=== PATIENT | female | born 1960 | race African-American/Black ===

== ENCOUNTER 2016-11-29 11:13 | Inpatient (IN) | payer OTHER ==
[2016-11-29] MEDS ORDERED: Hydrocortisone 10 mg Tablet PO SCH (14:00)
[2016-11-29] MEDS ORDERED: Hydrocortisone Sod Succ/PF 100 mg/2 ml Vial ONE (14:01)
--- NOTE | 2016-11-29 14:29 | HP ---
PRIMARY CARE PHYSICIAN: Reid Yao M.D. REASON FOR ADMISSION: Transfer from [facility] for sepsis, hypotension, and urinary trac t infection. HISTORY OF PRESENT ILLNESS: A 56-year-old -[place] female with a history of hypertension, u nknown type of congestive heart failure and mental retardation who went to [facility] thi s morning. [facility] and patient was hypotensive and febrile. The patient had chest x-ray recently which was normal. Her maximum temperature at [facility] was 102. When s he went to [facility], her blood pressure was 72/45 and temperature was 100.7. Policewoman s started IV fluid. The patient was completely altered when she reached [facility] and s he was not able to provide any detailed history. At [facility], the patient was given Ativan 0.5 mg, cefepime 2 g, ibuprofen 600 mg, IV fl uid 4 bags, and vancomycin, and subsequently she was transferred to our emergency room. In our emergency room, her blood pressure has responded and her blood pressure was running between 9 0-110. Patient was arousable, but she was not able to provide any history, so history was not obtai amada from her and very limited. The patient lives at [facility] and patient has FULL CODE over there. We are going to ke ep this patient in the hospital on telemetry floor for close monitoring and sepsis treatment. REVIEW OF SYSTEMS: All review of system reviewed with the patient, but unable to review because of her encephalopathy and underlying mental retardation. PAST MEDICAL HISTORY: Hypokalemia, history of nonspecific pericarditis, history of hypoglycemia, hi story of DVT, history of unknown type of CHF, gastroesophageal reflux disease, peptic ulcer disease, iron deficiency anemia, dyslipidemia, and history of hypertension. PAST SURGICAL HISTORY: Reviewed and negative as per H\T\P from [facility]. PAST PSYCHIATRIC HISTORY: Anxiety, depression, and mental retardation. SOCIAL HISTORY: Patient lives at [facility]. No history of tobacco, alcohol or illicit drug abuse. FAMILY HISTORY: The patient is not able to provide any family history and no family member present at bedside. EMERGENCY ROOM COURSE: Patient has received 4 liters of fluid at [facility], Ativan 0.5 mg, cefepime 2 g, vancomycin 1 g, and ibuprofen 600 mg and patient is receiving hydrocortisone in [facility] emergency room. CURRENT HOME MEDICATIONS: As per [facility] record, patient is on following medications there; as pirin 325 mg p.o. daily, lisinopril 2.5 mg p.o. daily, potassium chloride 20 mEq p.o. daily, simethi cone 80 mg daily, Aldactone 12.5 mg p.o. daily, calcium with vitamin D one tablet twice daily, Coreg 3.125 mg twice daily, ferrous sulfate 25 mg daily, Lasix 80 mg daily, Zantac 150 mg twice daily, Li pitor 20 mg p.o. at bedtime, Remeron 30 mg p.o. at bedtime. ALLERGIES: No known drug allergy. PHYSICAL EXAMINATION: VITAL SIGNS: Currently in our emergency room, most recent vital signs, blood pressure 103/64, pulse 77, respiratory rate 19, temperature 97.7, saturation 99% on room air, weight 68 kilograms. GENERAL: The patient is mentally retarded, encephalopathic, able to arousable, but does not follow good commands and does not remain in alert state. HEAD: Normocephalic, atraumatic. EYES: Pupils round, reactive to light. Extraocular muscles intact. ENT: Oropharynx within normal limits. Moist mucous membranes. No oral lesions. No pharyngeal lani thema, no exudate. NECK: Supple. Range of motion is normal. No meningeal signs of irritation. LUNGS: Clear to auscultation without any rhonchi or rales. CARDIAC: S1 and S2 regular. No murmur, no gallop, no rub. ABDOMEN: Soft, bowel sounds present, nontender, and nondistended. No organomegaly, no mass, no sup rapubic tenderness. BACK: Examination unremarkable, no CVA tenderness. EXTREMITIES: Upper extremity passive movements of all joints are normal. Lower extremity, no edema . Good peripheral pulsation. NEUROLOGIC: Unable to assess at this point, but she is moving all 4 limbs. No focal neurological d eficit noted. PSYCHIATRIC: Flat affect. HEMATOLOGICAL SYSTEM: No lymphadenopathy. SIGNIFICANT LABORATORY DATA AND IMAGIN. CBC: WBC 10.7, hemoglobin 9.3, MCV 72.3, platelets 197, and bandemia. INR 2.1. BMP: Sodium 1 40, potassium 3.6, chloride 106, carbon dioxide 20, BUN 38, creatinine 1.63, glucose 147, calcium 8. 6, lactic acid 0.9. 2. LFT: AST 33, ALT 22, alkaline phosphatase 111, albumin 3.4. Urinalysis suggestive of urinary t ract infection. 3. Influenza A and B negative. 3. Chest x-ray showing cardiomegaly, no pneumonia. ASSESSMENT AND PLAN/IMPRESSION: 1. Sepsis. This patient has high-grade fever at [facility] and in the emergency room, she has hy potension, so this patient is meeting sepsis criteria. Her source of infection is most likely urina ry tract. Her chest x-ray is normal. At this point, patient has received appropriate antibiotic th erapy with cefepime and vancomycin, which we will continue. In addition to that, I will add levoflo xacin and will follow up on urine and blood culture result. 2. Hypotension. This patient should have chronically low hypertension. She does have congestive h eart failure history. She already received 4 liters of fluid. She is mentating okay. She is makin g urine. We will check random cortisol and we will give her Solu-Cortef 100 mg in the emergency edilma m and then 50 mg q.8 hourly. We will continue baseline fluid at 125 mL per hour. Given her history of congestive heart failure, we will closely monitor on telemetry floor and we will watch for any s igns of volume overload. 3. Urinary tract infection. This patient's urinalysis is suggestive of urinary tract infection octavio t is contributing to her sepsis with hypotension. The patient will be given cefepime, Levaquin, and vancomycin and will follow up on culture result. 4. Microcytic anemia. The patient will have iron supplementation, which she is taking at [facility]. We will continue in liquid formulation. 5. Acute/chronic kidney failure. This patient currently, creatinine is 1.62. The patient has rece ived IV fluid and we will repeat basic metabolic panel tomorrow. 6. History of congestive heart failure, type of ejection fraction is not known. Patient has cardio megaly. I will obtain echocardiography to assess ejection fraction and other structural abnormality . Based on her medication, I am suspecting that the patient might have underlying systolic heart fa ilure. At this point, given patient's low blood pressure, we will hold on all antihypertensive medi cation for now. 7. Dyslipidemia. We will continue Lipitor 20 mg p.o. at bedtime. 8. Gastroesophageal reflux disease. We will continue Pepcid 20 mg IV b.i.d. 9. Deep venous thrombosis prophylaxis, Lovenox 40 mg subcutaneously daily. 10. Gastrointestinal prophylaxis, Pepcid 20 mg IV b.i.d. 11. Code status: The patient has FULL CODE status at [facility]. Disposition plan based on clinical course. We are expecting patient's stay in hospital more than 2 midnights. Plan of care discussed with the patient and nurses in detail.
[2016-11-29] MEDS: Sodium Chloride 0.9% 1,000 ML IV SCH ×2 (14:55→19:53)
[2016-11-29] MEDS ORDERED: Sodium Chloride 0.9% 1,000 ML IV SCH (14:59)
[2016-11-29] MEDS ORDERED: Ondansetron HCl/PF 4 MG/2 ML Vial IVP PRN ×2 (14:59→15:10)
[2016-11-29] MEDS ORDERED: Acetaminophen 325 MG TAB PO PRN ×2 (14:59→15:10)
[2016-11-29] MEDS ORDERED: Ondansetron ODT 4 MG TAB SL PRN (14:59)
[2016-11-29] MEDS ORDERED: Mag-Al 1200 mg/1200 mg/30 ML UDCUP PO PRN (15:10)
[2016-11-29] MEDS ORDERED: Sodium Chloride 0.65% Nasal 44 ML BOT EA NARE PRN (15:10)
[2016-11-29] MEDS ORDERED: VANCOMYCIN IVPB PRN (15:10)
[2016-11-29] MEDS ORDERED: Milk Of Magnesia 30 ML UDCUP PO PRN (15:10)
[2016-11-29] MEDS ORDERED: Eucerin (Mineral Oil/Petrolatum,White) 30 gm Jar TOP PRN (15:10)
[2016-11-29] MEDS ORDERED: Diabetic Tussin 200 MG/10 ML UDCUP PO PRN (15:10)
[2016-11-29] MEDS ORDERED: Chloraseptic Spray 180 ml Bottle PO PRN (15:10)
[2016-11-29] MEDS ORDERED: Ondansetron ODT 4 MG TAB PO PRN (15:10)
[2016-11-29] MEDS ORDERED: Senokot 8.6 MG TAB PO PRN (15:10)
[2016-11-29] MEDS ORDERED: Artificial Tears 18 DROP/0.9 ML EA EYE PRN (15:10)
[2016-11-29] MEDS ORDERED: Loperamide HCl 2 MG CAP PO PRN (15:10)
[2016-11-29] MEDS: Cefepime 2 GM in Sodium Chloride 0.9% 100 ML IVPB SCH (19:53)
[2016-11-29] MEDS: Famotidine/PF 20 mg/2ml Vial SLOW IVP SCH (21:45)
[2016-11-29] MEDS: Vancomycin HCl 750 MG in Sodium Chloride 0.9% 250 ML 250 ML IVPB SCH (21:45)
[2016-11-29] MEDS: Hydrocortisone Sod Succ/PF 100 mg/2 ml Vial IVP SCH (21:45)
[2016-11-30] MEDS: Hydrocortisone Sod Succ/PF 100 mg/2 ml Vial IVP SCH (05:48)
[2016-11-30] MEDS: Sodium Chloride 0.9% 1,000 ML IV SCH ×3 (05:49→15:21)
[2016-11-30 06:38] LABS: ALT (SGPT) 16 U/L (8-55); AST (SGOT) 22 U/L (5-34); Alkaline Phosphatase 95 U/L (40-150); Anion Gap 15 mmol/L (10-20); BUN (Urea Nitrogen) 44 mg/dL (9.8-20.1); Calc. Creatinine Clearance 38 mL/min (70-130); Calcium 8.3 mg/dL (7.8-10.44); Carbon Dioxide 18 mmol/L (22-29); Chloride 111 mmol/L (98-107); Estimated GFR-MDRD 39; Globulin 3.8 g/dL (2.4-3.5); Protein, Total 7.1 g/dL (6.0-8.3)
[2016-11-30] MEDS: Cefepime 2 GM in Sodium Chloride 0.9% 100 ML IVPB SCH ×2 (10:18→21:02)
[2016-11-30] MEDS: Enoxaparin Sodium 40 MG/0.4 ML SYRINGE SC SCH (10:19)
[2016-11-30] MEDS: Calcium Carbonate + Vit D 1 TAB PO SCH ×2 (10:20→21:03)
[2016-11-30] MEDS: Saccharomyces boulardii 250 MG CAP PO SCH (10:20)
--- NOTE | 2016-11-30 13:15 | PDOC.PN ---
- Subjective Encounter Start Date: 11/30/16 Encounter Start Time: 07:15 -: old records requested/rev pt is more alert but still baseline confused, now BP is more better, no fever - Objective Resuscitation Status: Resuscitation Status FULL:Full Resuscitation MAR Reviewed: Yes Vital Signs & Weight: Vital Signs (12 hours) Temp Pulse Resp BP Pulse Ox 11/30/16 04:00 97.9 F 88 18 110/68 99 Weight Weight 138 lb 9 oz I&O: 11/29/16 11/30/16 12/01/16 06:59 06:59 06:59 Intake Total 1654 Output Total 300 Balance 1354 Result Diagrams: 11/30/16 05:36 EKG Reviewed by me: Yes (nsr) Phys Exam - Physical Examination Constitutional: NAD HEENT: PERRLA, moist MMs, sclera anicteric Neck: no JVD, supple Respiratory: no wheezing, no rales, no rhonchi Cardiovascular: RRR, no significant murmur, no rub Gastrointestinal: soft, non-tender, no distention, positive bowel sounds Musculoskeletal: no edema, pulses present Neurological: moves all 4 limbs Lymphatic: no nodes Psychiatric: normal affect Skin: no rash, normal turgor Dx/Plan (1) Acute kidney failure Status: Acute (2) Hypotension Status: Acute (3) Metabolic acidosis Code(s): E87.2 - ACIDOSIS Status: Acute (4) Microcytic anemia Code(s): D50.9 - IRON DEFICIENCY ANEMIA, UNSPECIFIED Status: Acute (5) Sepsis with acute organ dysfunction Code(s): A41.9 - SEPSIS, UNSPECIFIED ORGANISM; R65.20 - SEVERE SEPSIS WITHOUT SEPTIC SHOCK Status: Acute (6) UTI (urinary tract infection) Status: Acute (7) CHF (congestive heart failure) Code(s): I50.9 - HEART FAILURE, UNSPECIFIED Status: Chronic - Plan cont current plan of care, continue antibiotics * continue empiric cefepime, levaquin and vancomycin based on renal dose * medication reviewed as below * symptomatic treatment. * will reduce IVF today * echo pending * follow culture * will repeat labs tomorrow. Review of Systems - Review of Systems Other: not reliable due to mental retardation and confusional state - Medications/Allergies Allergies/Adverse Reactions: Allergies Allergy/AdvReac Type Severity Reaction Status Date / Time No Known Allergies Allergy Unverified 11/29/16 13:49 Medications: Current Medications Acetaminophen (Tylenol) 650 mg PO Q4H PRN PRN Reason: Headache/Fever or Pain Al Hydroxide/Mg Hydroxide (Maalox) 30 ml PO Q6H PRN PRN Reason: Heartburn or Indigestion Artificial Tears (Tears Naturale) 0 drop EA EYE PRN PRN PRN Reason: Dry Eyes Calcium/Vitamin D (Caltrate 600 + Vit D) 1 tab PO BID [facility] Last Admin: 11/30/16 10:20 Dose: 1 tab Enoxaparin Sodium (Lovenox) 40 mg SC 0900 [facility] Last Admin: 11/30/16 10:19 Dose: 40 mg Famotidine (Pepcid) 20 mg SLOW IVP Q24HR [facility] Last Admin: 11/29/16 21:45 Dose: 20 mg Ferrous Sulfate (Ferrous Sulfulte) 300 mg PO BID [facility] Last Admin: 11/30/16 10:29 Dose: 300 mg Guaifenesin (Robitussin Sf) 200 mg PO Q4H PRN PRN Reason: Cough Cefepime HCl 2 gm/ Sodium (Chloride) 100 mls @ 200 mls/hr IVPB 0800,2000 [facility] Last Admin: 11/30/16 10:18 Dose: 100 mls Vancomycin HCl 750 mg/ Sodium (Chloride) 250 mls @ 250 mls/hr IVPB 2100 [facility] Last Admin: 11/29/16 21:45 Dose: 250 mls Sodium Chloride (Normal Saline 0.9%) 1,000 mls @ 75 mls/hr IV .[id number] [facility] Last Admin: 11/30/16 10:27 Dose: 1,000 mls Levofloxacin 500 mg/ Device 100 mls @ 100 mls/hr IVPB Q2D@1700 [facility] Loperamide HCl (Imodium) 2 mg PO PRN PRN PRN Reason: Diarrhea/Loose Stools Magnesium Hydroxide (Milk Of Magnesium) 30 ml PO DAILYPRN PRN PRN Reason: Constipation Mineral Oil/White Petrolatum (Eucerin Cream) 0 gm TOP BIDPRN PRN PRN Reason: Dry Skin Miscellaneous Medication (Pharmacy To Dose) 1 each IVPB PRN PRN PRN Reason: Pharmacy to dose Ondansetron HCl (Zofran Odt) 4 mg PO Q6H PRN PRN Reason: Nausea/Vomiting Ondansetron HCl (Zofran) 4 mg IVP Q6H PRN PRN Reason: Nausea/Vomiting Phenol (Chloraseptic [place] 180 Ml Bot) 0 ml PO PRN PRN PRN Reason: Sore Throat Saccharomyces Boulardii (Florastor) 250 mg PO DAILY [facility] Last Admin: 11/30/16 10:20 Dose: 250 mg Senna (Senokot) 2 tab PO HSPRN PRN PRN Reason: Constipation Sodium Chloride ([place] Nasal [place] 0.65%) 0 ml EA NARE QIDPRN PRN PRN Reason: Nasal Congestion
[2016-11-30] MEDS: Famotidine/PF 20 mg/2ml Vial SLOW IVP SCH (21:09)
[2016-11-30] MEDS: Vancomycin HCl 750 MG in Sodium Chloride 0.9% 250 ML 250 ML IVPB SCH (21:11)
[2016-12-01 06:44] LABS: Prothrombin Time 18.1 SEC (12.0-14.7)
[2016-12-01 07:01] LABS: Anion Gap 15 mmol/L (10-20); BUN (Urea Nitrogen) 45 mg/dL (9.8-20.1); Band 6 % (5-11); Burr Cells MODERATE= 6-15 cells (100X) (0-1/hpf); Calc. Creatinine Clearance 43 mL/min (70-130); Calcium 8.2 mg/dL (7.8-10.44); Carbon Dioxide 16 mmol/L (22-29); Chloride 111 mmol/L (98-107); Estimated GFR-MDRD 42; Hematocrit 34.5 % (36.0-47.0); Hypochromia SLIGHT = 6-15 cells (100X) (0-5/hpf); Mean Platelet Volume 9.8 fL (7.4-10.4); Neutrophil 83 % (42-75); Red Blood Cell (RBC) Count 4.45 mill/uL (4.20-5.40); White Blood Cell (WBC) Count 12.5 thou/uL (4.8-10.8)
[2016-12-01] MEDS: Calcium Carbonate + Vit D 1 TAB PO SCH ×2 (11:07→20:39)
[2016-12-01] MEDS: Enoxaparin Sodium 40 MG/0.4 ML SYRINGE SC SCH (11:07)
[2016-12-01] MEDS: Cefepime 2 GM in Sodium Chloride 0.9% 100 ML IVPB SCH ×2 (11:07→20:39)
--- NOTE | 2016-12-01 11:58 | PDOC.PN ---
- Subjective Encounter Start Date: 12/01/16 Encounter Start Time: 11:56 Ms. Swift is more alert today as per staff. she is able to answer a few simple questions. - Objective Resuscitation Status: Resuscitation Status FULL:Full Resuscitation MAR Reviewed: Yes Vital Signs & Weight: Vital Signs (12 hours) Temp Pulse Resp BP Pulse Ox 12/01/16 04:00 100.2 F H 100 20 122/73 97 Weight Weight 146 lb I&O: 11/30/16 12/01/16 12/02/16 06:59 06:59 06:59 Intake Total 1654 2143 Output Total 300 450 Balance 1354 1693 Result Diagrams: 12/01/16 06:21 12/01/16 06:21 Phys Exam - Physical Examination HEENT: PERRLA Respiratory: no wheezing, no rales, no rhonchi, clear to auscultation bilateral Cardiovascular: RRR, no significant murmur, no rub Gastrointestinal: soft, non-tender, positive bowel sounds Musculoskeletal: no edema Dx/Plan (1) Systolic heart failure Code(s): I50.20 - UNSPECIFIED SYSTOLIC (CONGESTIVE) HEART FAILURE Status: Acute (2) Acute kidney failure Status: Acute (3) Microcytic anemia Code(s): D50.9 - IRON DEFICIENCY ANEMIA, UNSPECIFIED Status: Acute (4) Sepsis with acute organ dysfunction Code(s): A41.9 - SEPSIS, UNSPECIFIED ORGANISM; R65.20 - SEVERE SEPSIS WITHOUT SEPTIC SHOCK Status: Acute (5) UTI (urinary tract infection) Status: Acute - Plan * UTI with sepsis and acute renal failure- Continue Levaquin, Cefepime, and Vancomycin * Urine cultures were note done from the ER, ? from the [facility]- will check , but likely will be low yield, now that antibiotics have been started * Microcytic Anemia- will check stool for occult blood, she may need Outpatient Colonoscopy * Systolic heart failure- not sure if this is a chronic problem. She came in with a diagnosis of CHF- will try to contact family to confirm * If She continues to improve, can stop Vancomycin in the AM, consider de- escalating other antibiotics as well * HTN- blood pressure is stable
[2016-12-01 12:10] LABS: Iron 12 ug/dL (50-170)
[2016-12-01] MEDS: Sodium Chloride 0.9% 1,000 ML IV SCH ×2 (17:11→20:40)
[2016-12-01] MEDS: Saccharomyces boulardii 250 MG CAP PO SCH (17:12)
[2016-12-01 20:26] LABS: Vancomycin, Trough 17.5 ug/mL
[2016-12-01] MEDS: Famotidine/PF 20 mg/2ml Vial SLOW IVP SCH (20:39)
[2016-12-01] MEDS: Vancomycin HCl 750 MG in Sodium Chloride 0.9% 250 ML 250 ML IVPB SCH (20:40)
[2016-12-02] MEDS: Cefepime 2 GM in Sodium Chloride 0.9% 100 ML IVPB SCH (10:04)
[2016-12-02] MEDS: Calcium Carbonate + Vit D 1 TAB PO SCH ×2 (10:05→20:08)
[2016-12-02] MEDS: Enoxaparin Sodium 40 MG/0.4 ML SYRINGE SC SCH (10:05)
[2016-12-02] MEDS: Saccharomyces boulardii 250 MG CAP PO SCH (10:05)
--- NOTE | 2016-12-02 10:31 | PDOC.PN ---
- Subjective Encounter Start Date: 12/02/16 Encounter Start Time: 10:28 Ms. Swift is complaining of abdominal pain, she says " my stomach hurts". She is unable to give me much additional information due to the MR. - Objective Resuscitation Status: Resuscitation Status FULL:Full Resuscitation MAR Reviewed: Yes Vital Signs & Weight: Vital Signs (12 hours) Temp Pulse Resp BP Pulse Ox 12/02/16 04:00 97.6 F 104 H 18 115/65 98 Weight Weight 147 lb 4.8 oz I&O: 12/01/16 12/02/16 12/03/16 06:59 06:59 06:59 Intake Total 2143 3230 Output Total 450 950 Balance 1693 2280 Result Diagrams: 12/01/16 06:21 12/01/16 06:21 Phys Exam - Physical Examination HEENT: PERRROCIO Respiratory: no wheezing, no rales, no rhonchi, clear to auscultation bilateral Cardiovascular: RRR, no significant murmur + distended, tympanic to percussion, BS are present, difuse tenderness no rebound or guarding Dx/Plan (1) Systolic heart failure Code(s): I50.20 - UNSPECIFIED SYSTOLIC (CONGESTIVE) HEART FAILURE Status: Acute (2) Acute kidney failure Status: Acute (3) Microcytic anemia Code(s): D50.9 - IRON DEFICIENCY ANEMIA, UNSPECIFIED Status: Acute (4) Sepsis with acute organ dysfunction Code(s): A41.9 - SEPSIS, UNSPECIFIED ORGANISM; R65.20 - SEVERE SEPSIS WITHOUT SEPTIC SHOCK Status: Acute (5) UTI (urinary tract infection) Status: Acute - Plan * Abdominal Pain- ? etiology- ? obstipation- will check a KUB ( unsure if she is able to stand)- she may require CT- abdomen * UTI- Urine culture results from 11/29 are now available and are growing E. Coli , as well as blood cultures. This E. Coli is resistent to quinolones- will therefore change her antibiotic to Rocephin. Stop Vancomycin, and Cefepime * Anemia- suspect chronic disease- stool guaic was negative, will check a ferritin level * Systolic heart failure- likely chronic- this is compensated. Will restart Coreg, and Aldactone, once the GI issue is resolved
--- NOTE | 2016-12-02 11:40 | RAD ---
KUB: Comparison: None. History: Abdominal pain. FINDINGS: Single view of the abdomen shows a nonspecific, nonobstructed bowel gas pattern. Air and stool seen in the rectum. No suspicious calcifications are present. IMPRESSION: Unremarkable exam. POS: [facility]
[2016-12-02] MEDS: cefTRIAXone\\ROCEPHIN 1 GM in Sodium Chloride 0.9% 100 ML IVPB SCH (13:06)
[2016-12-02] MEDS: Sodium Chloride 0.9% 1,000 ML IV SCH (13:06)
[2016-12-02] MEDS ORDERED: Bisacodyl 10 MG SUPP PR SCH (16:30)
[2016-12-02] MEDS: Famotidine 20 MG TAB PO SCH (20:08)
[2016-12-03] MEDS: Sodium Chloride 0.9% 1,000 ML IV SCH (01:20)
[2016-12-03 06:20] LABS: Band 1 % (5-11); Burr Cells SLIGHT = 2-5 cells (100X) (0-1/hpf); Elliptocytes SLIGHT = 2-5 cells (100X) (0-1/hpf); Hematocrit 30.3 % (36.0-47.0); Mean Platelet Volume 10.1 fL (7.4-10.4); Neutrophil 86 % (42-75); Nucleated RBC 1 % (0); Red Blood Cell (RBC) Count 3.83 mill/uL (4.20-5.40); Target Cells SLIGHT = 2-5 cells (100X) (0-1/hpf); White Blood Cell (WBC) Count 10.1 thou/uL (4.8-10.8)
[2016-12-03] MEDS: Saccharomyces boulardii 250 MG CAP PO SCH (08:44)
[2016-12-03] MEDS: Famotidine 20 MG TAB PO SCH (08:44)
[2016-12-03] MEDS: Calcium Carbonate + Vit D 1 TAB PO SCH (08:44)
[2016-12-03] MEDS: Enoxaparin Sodium 40 MG/0.4 ML SYRINGE SC SCH ×2 (08:45→10:26)
[2016-12-03] MEDS: cefTRIAXone\\ROCEPHIN 1 GM in Sodium Chloride 0.9% 100 ML IVPB SCH (10:32)
--- NOTE | 2016-12-03 11:10 | PDOC.PN ---
- Subjective Encounter Start Date: 12/03/16 Encounter Start Time: 11:08 Ms. Swift says she wants to go home. She says the pain in her abdomen is a little better. Her nurse says she had a large bowel movement last night. - Objective Resuscitation Status: Resuscitation Status FULL:Full Resuscitation MAR Reviewed: Yes Vital Signs & Weight: Vital Signs (12 hours) Temp Pulse Resp BP Pulse Ox 12/03/16 08:43 98.2 F 96 18 124/77 98 12/03/16 04:00 98.4 F 92 20 118/66 98 Weight Weight 147 lb 4.8 oz I&O: 12/02/16 12/03/16 12/04/16 06:59 06:59 06:59 Intake Total 3230 1803 Output Total 950 885 Balance 2280 918 Result Diagrams: 12/03/16 05:11 12/01/16 06:21 Phys Exam - Physical Examination HEENT: PERRLA Respiratory: no wheezing, no rales, no rhonchi, clear to auscultation bilateral Cardiovascular: RRR, no significant murmur, no rub Gastrointestinal: soft + mild distention, less tender Musculoskeletal: edema present 1+ pedal edema Dx/Plan (1) Systolic heart failure Code(s): I50.20 - UNSPECIFIED SYSTOLIC (CONGESTIVE) HEART FAILURE Status: Acute (2) Acute kidney failure Status: Acute (3) Microcytic anemia Code(s): D50.9 - IRON DEFICIENCY ANEMIA, UNSPECIFIED Status: Acute (4) Sepsis with acute organ dysfunction Code(s): A41.9 - SEPSIS, UNSPECIFIED ORGANISM; R65.20 - SEVERE SEPSIS WITHOUT SEPTIC SHOCK Status: Acute (5) UTI (urinary tract infection) Status: Acute - Plan * UTI due to E Coli with sepsis- she is now afebrile, and her vital signs are stable * Will discharge back to the [facility] today * Will recommend Outpatient Colonoscopy to evaluate anemia and change in bowel habits..
[2016-12-03 15:39] VITALS: BP 132/84; TEMP 98.5
--- NOTE | 2016-12-03 19:59 | DIS ---
DATE OF ADMISSION: 11/29/2016 DATE OF DISCHARGE: 12/02/2016 PRIMARY CARE PHYSICIAN: Reid Yao M.D. DISCHARGE DISPOSITION: Back to her [facility]. DISCHARGE DIAGNOSES: 1. Urinary tract infection due to Escherichia coli with Escherichia coli sepsis. 2. Chronic systolic heart failure with an ejection fraction of 25% to 30%. 3. History of pericarditis. 4. History of deep vein thrombosis. 5. Iron deficiency anemia. 6. Hypertension. 7. Mental retardation. DISCHARGE MEDICATIONS: Include Omnicef 600 mg p.o. daily for 10 days, also Florastor 250 mg daily f or 30 days was added. She is to continue spironolactone 12.5 mg daily, Zantac 150 mg twice a day, M iraLax 17 grams daily, Lasix 80 mg twice daily, iron sulfate 220 mg twice daily, carvedilol 3.125 mg twice a day, calcium carbonate 1 tablet twice daily, Lipitor 20 mg at bedtime and Tylenol #3 as nee ded. PROCEDURES DONE DURING THE ADMISSION: The patient had an echocardiogram, which demonstrated an ejec tion fraction, which was estimated at 25% to 30%. There were some E to A reversal suggestive of jf stolic dysfunction. There was some severe tricuspid regurgitation as well as moderate mitral regurg itation. HOSPITAL COURSE: Ms. Swift is a pleasant 56-year-old female that was [facility] from the [facility] due to high fever with a temperature of 102 and she was also hypotensive with systolic blood pressu res in the 70s. She was sent initially to the emergency room in [place] where she had blood and urin e cultures done and then was sent to our facility. She was initially placed on broad-spectrum IV an tibiotics. Her urine and blood cultures grew E. coli, which was sensitive to cephalosporins, but re sistant to quinolones. She had been on cefepime since admission. This was then transitioned to Jay ephin and she had a good clinical response. She was also found to have iron deficiency anemia, whic h she came in with a diagnosis of iron deficiency anemia; however, her iron level is still low at 12 and her ferritin was low at 85, iron binding capacity was 313. Her stool guaiac was negative for o ccult blood; however, she did have some constipation during her hospital stay and unfortunately, due to her mental retardation, it is unclear whether or not she has ever had a screening colonoscopy be fore. Also, we were not able to locate any family to do any type of consenting, therefore she will be transferred back to her [facility]. She is clinically stable and an outpatient GI referral for colonoscopy can be arranged.
== END 2016-12-03 15:07 | DRG 872 ==
LOC: ERS 11:13 → 2NO 12:46
PROVIDERS: ADMIT Internal Medicine; ATTEND Internal Medicine
DX: A41.51 Sepsis due to Escherichia coli [E. coli] (principal); N17.9 Acute kidney failure, unspecified; E87.2 Acidosis; I13.0 Hypertensive heart and chronic kidney disease with heart failure and stage 1 through stage 4 chronic kidney disease, or unspecified chronic kidney disease; I50.22 Chronic systolic (congestive) heart failure; N39.0 Urinary tract infection, site not specified; N18.9 Chronic kidney disease, unspecified; E78.5 Hyperlipidemia, unspecified; K21.9 Gastro-esophageal reflux disease without esophagitis; I08.1 Rheumatic disorders of both mitral and tricuspid valves; D50.9 Iron deficiency anemia, unspecified; F79 Unspecified intellectual disabilities; R65.20 Severe sepsis without septic shock; Z86.718 Personal history of other venous thrombosis and embolism; Z86.79 Personal history of other diseases of the circulatory system
CPT/HCPCS: 36415; 74000; 80048; 80053; 80202; 82274; 82728; 83540; 83550; 83605; 85025; 85610; 87086; 93306; 96374; J0692; J0696; J1650; J1720; J1956; J2405; J3370; J7050; S0028

== ENCOUNTER 2018-12-25 18:23 | Inpatient (IN) | payer OTHER ==
[~2018-12-25 18:23] MED LIST: Heparin 1,000 UNITS/ML VIAL ONE
--- NOTE | 2018-12-25 20:35 | PDOC.FPRHP ---
- History of Present Illness Chief Complaint: fever, vomting History of Present Illness: 58 y/o F from [facility] [place] because of fever and vomiting episode today. She is unsure of why she is at the ER. Denies any pain or symptoms. She is at her baseline mentation. Pt had an initial fever of 102. Decreased to 97.8 upon evaluation. Pt has a decubitus ulcer over left buttocks. Pt was given 3 L NS in ED, started on Vanc and zosyn. She met sirs criteria without a source. D-dimer 1.06, Cr 2.36, Bun 29, CRP 7.91, BNP <10, CK 111, UA small leuk est, rare bact, Flu A/B neg. EKG sinus tach. BP 83/56, 20 RR, 106 HR. - Allergies/Adverse Reactions Allergies Allergy/AdvReac Type Severity Reaction Status Date / Time No Known Allergies Allergy Verified 12/26/18 01:53 - Home Medications Medication Instructions Recorded Confirmed Type Acetaminophen [Tylenol Regular 650 mg PO Q4HR PRN 11/29/16 12/25/18 History Strength] Atorvastatin Calcium [Lipitor] 20 mg PO HS 11/29/16 12/25/18 History Calcium Carbonate/Vitamin D3 1 tab PO BID 11/29/16 12/25/18 History [Calcium 600 + Vitamin D 400] Carvedilol [Coreg] 3.125 mg PO BID 11/29/16 12/25/18 History Furosemide 80 mg PO 11/29/16 12/25/18 History Guaifenesin DM 100-10 [Robitussin 10 ml PO Q6H PRN 11/29/16 12/25/18 History DM] Spironolactone 12.5 mg PO DAILY 11/29/16 12/25/18 History Zantac 150 mg PO BID 11/29/16 12/25/18 History Aspirin [Aspirin EC] 325 mg PO DAILY 12/25/18 12/25/18 History Calcium Carbonate 400 mg PO Q4H PRN 12/25/18 12/25/18 History Divalproex Sodium [Depakote 125 mg PO TID 12/25/18 12/25/18 History Sprinkle] Ferrous Gluconate 324 mg PO BID 12/25/18 12/25/18 History Lisinopril 2.5 mg PO DAILY 12/25/18 12/25/18 History Mirtazapine [Remeron] 30 mg PO HS 12/25/18 12/25/18 History Multivit with Minerals No.55 1 each PO DAILY 12/25/18 12/25/18 History [Centrum Flavor Burst Adult] Potassium Chloride 20 meq PO QAM-WM 12/25/18 12/25/18 History Sennosides [Senokot] 1 tab PO BID PRN 12/25/18 12/25/18 History Simethicone 80 mg PO QAM 12/25/18 12/25/18 History Sulfamethoxazole/Trimethoprim 1 tab PO BID 12/25/18 12/25/18 History [Bactrim DS] - History PMHx: DVT, CHF, GERD, PUD, Iron deficiency anemia, HLD, HTN. PSHx: unknown FHx: unknown Social: Lives at [facility] PCP Dr. Yao. - Review of Systems ROS unobtainable: due to mental status (pt oriented to person only. She does not answer questions appropriately) General: reports: fever/chills (per NH report) Gastrointestinal: reports: vomiting (per NH report) - Vital signs BP: 83/56 HR: 106 RR: 20 Tmax: 102 Pox: 95% on RA Wt: 95.3 kg - Physical Exam Constitutional: NAD -Constitutional: A&O X1 HEENT: normocephalic and atraumatic, PERRLA, EOMI, no scleral icterus, MMM Neck: supple, FROM, trachea midline, no LAD, no JVD Heart: RRR, normal S1/S2, no murmurs/rubs/gallops, pulses present, no edema Lungs: CTAB, no respiratory distress, good air movement, no rales/rhonchi, no wheezing Abdomen: soft, non-tender, bowel sounds present Musculoskeletal: normal structure Neurological: no focal deficit Skin: good turgor, capillary refill <2 seconds -Skin: left buttocks decubitus ulcer stage 4 Large tract. Heme/Lymphatic: no unusual bruising or bleeding FMR H&P: Results - Labs Result Diagrams: 12/26/18 05:06 12/26/18 06:15 Lab results: Laboratory Tests 12/25/18 12/25/18 12/25/18 15:15 15:28 15:28 WBC 11.2 H ESR Westergren D-Dimer 1.06 H Sodium Creatinine Lactic Acid 0.9 Troponin I C-Reactive Protein Procalcitonin Ur Leukocyte Esterase Urine WBC Ur Squamous Epith Cells Urine Bacteria 12/25/18 12/25/18 12/25/18 15:28 15:28 15:28 WBC ESR Westergren D-Dimer Sodium 132 L Creatinine 2.36 H Lactic Acid Troponin I Less than 0.010 C-Reactive Protein 7.91 H Procalcitonin Ur Leukocyte Esterase Urine WBC Ur Squamous Epith Cells Urine Bacteria 12/25/18 12/25/18 12/25/18 15:46 23:21 23:21 WBC ESR Westergren 25 D-Dimer Sodium Creatinine Lactic Acid Troponin I C-Reactive Protein Procalcitonin 0.38 Ur Leukocyte Esterase Small H Urine WBC 7-10 A Ur Squamous Epith Cells 0-3 Urine Bacteria Rare-Few - EKG Interpretation EKG: sinus tach - Radiology Interpretation Other Status: image reviewed by me, report reviewed by me (Left hip xray: no osseous abnormality. MRI more sensitive for Osteo concerns.) FMR H&P: A/P - Problem List (1) Decubitus ulcer of left buttock, stage 4 Current Visit: Yes Status: Acute Code(s): L89.324 - PRESSURE ULCER OF LEFT BUTTOCK, STAGE 4 (2) Hypotension Current Visit: No Status: Acute (3) SIRS without infection or organ dysfunction Current Visit: Yes Status: Acute Code(s): R65.10 - SIRS OF NON-INFECTIOUS ORIGIN W/O ACUTE ORGAN DYSFUNCTION (4) Systolic heart failure Current Visit: Yes Status: Chronic Code(s): I50.20 - UNSPECIFIED SYSTOLIC ( CONGESTIVE) HEART FAILURE - Plan 58 y/o F admitted to Medical for treatment and evaulation of SIRs without a source of infection. 1. SIRs without a source of infection - Tmax 102 F, HR 106, RR 20, WBC 11.2 - BP 83/56 upon initial evaluation - Pt given 3 L NS in the ED. - Placed on 125 LR mL/hr - Started on Vanc and Zosyn, renally dosed per pharmacy - Pt had an episode of em[place] prior to being brought to [place]. 2. Decubitus Ulcer Stage 4 of left buttocks - Possibly overlying osteomyelitis - Left hip x-ray: no osseous abnormality. - Large tract from skin to base of ulcer. - Consider MRI 3. Luekocytosis - WBC 11.2 - ESR nml - CRP 7.9 4. Hx of CHF, systolic - BNP <10 - Monitor pt closely with the amount of IVF fluids she has received. - Holding BP medications, and diuretics 5. Recent UTI - Pt completed X6 days of bactrim therapy outpatient - UA shows small leuk est, rare bact - Pt on vanc and zosyn, d/c bactrim 6. Elevated DDimer - D-Dimer was 1.06 - Decision was made to not CTA at this time, as D-dimer likely elevated 2/2 infectious process. - Pt's vitals O2 sat 95% on RA 7. GUCCI on CKD - Cr 2.36, BUN 29 - IVF hydration 8. Hypotension - Ordered AM Cortisol level - Fluid resuscitation - Monitor closely - Holding home BP, and diuretic medications 9. Hx of HTN - Hold BP medications 10. Oriented to person only - Will get in touch with next of kin to find out cause of patient's baseline mentation Code Status: Full code, will call [facility] and get contact for next of kin to discuss wishes. DVT ppx: SCD's Diet: HH Dispo: Stable, admitted to Medical for evaluation and treatment of SIRs without a know source of infection. Working up possible osetomyelitis. FMR H&P: Upper Level - Pertinent history 58 y/o F PMHx PUD, GERD, Anemia, CHF, HTN, depression presents from [place] ED due to fever. There is no documentation in [place] ED record of history or physical. Apparently at the time they were concerned about sepsis 2/2 UTI due to pt with recent UTI treated with bactrim. No evidence of UTI at this time. She is AOx1 at baseline so unable to obtain history from patient. They were also concerned about nonspecific abdominal pain and wanting her to get abdominal CT. I could not elicit abdominal pain on my exam. Pt with L buttocks decubitus ulcer. Called [facility] and the nurse there reported she was sent to the ED because she didn't want to eat her lunch and then afterwards was complaining of N/V and was found to have a fever. - Pertinent findings Vitals: BP: 104/47, Pulse: 87, Resp: 18, Temp: 97.5 (Oral), Pain: 0, O2 sat: 97 on Room Air PE: Gen - alert, oriented, NAD HEENT - MMM CV - RRR, no murmurs Lungs - CTAB, no wheezes Abd - soft, NTTP Skin - L buttocks decubitus ulcer with no surrounding erythema or tenderness, but deep track noted Labs: WBC 11.2, Na 132, BUN 29, Cr 2.36, GFR 26, CRP 7.91, Trop < 0.010, Lactic Acid 0.9, d dimer 1.06, UA small LE, 7-10 WBC. CXR - no acute process - Plan Date/Time: 12/25/182034 I, Stacey Ferreira MD, PGY-3, have evaluated this patient and agree with findings/ plan as outlined by internal affairs investigator resident. Pertinent changes/additions are listed here. 1. SIRS without a source Concern for osteo with tracking ulcer and elevated CRP, but no surrounding celluitis. No UTI or evidence of infection on CXR. Possible gastroenteritis as the cause with recent N/V. -BCx at [place] -Continue vanc and zosyn right now -Procalcitonin -Check ESR and get hip x-ray to look for osteo -LR @ 125 -Check cortisol due to refractory hypotension -Zofran 2. Hypotension Sepsis vs adrenal insufficiency vs dehydration with recent emesis -Check cortisol -IVF as above -Monitor closely 3. Recent UTI with h/o recurrent UTI's s/p bactrim, appears to have resolved 4. CHF Does not appear fluid overloaded -Continue home meds -Giving IVF right now as hypotensive, but will monitor closely for signs of fluid overload 5. Mild Intellectual Disability -Aware 6. HTN -Hold home BP medications at this time as hypotensive Dispo: Admit to Medical LOS: Likely greater than 2 days Addendum - Attending - Attending Attestation Date/Time: 12/26/18 6387 I personally evaluated the patient and discussed the management with Dr. Salamanca I agree with the History, Examination, Assessment and Plan documented above with any addition or exceptions noted below - 58 yo female resident of [facility] with h/o mild intellectual disability, DESEAN, CHF, GERD, HTN sent to ER due to fever x 1 day and N/V. Patient recently completed treatment with Bactrim for UTI. Unable to obtain further history from patient. Tm 102 in [place] 97.8 , P106 BP 101/66 Exam repeated by me and agree with resident's findings. Labs: WBC=11., H/H=12.9/ 41.8, Plt= 294, Kb=688, K=4.8, Cl=95, CO2=23, BUN/Cr=29/2.36, lactic acid=0.9, CRP=7.91. Flu (-) A/P: 1) SIRS- uncertain source for fever. Blood and urine cultures obtained. Continue Vanc/zosyn for now. Will check hip x-ray to evalaute for possible osteomyelitis. 2) GUCCI- baseline Cr=0.9; continue IVF and recheck in AM.
[2018-12-25] MEDS ORDERED: Vancomycin HCl 1.5 GM in Sodium Chloride 0.9% 250 ML 300 ML IVPB SCH (20:45)
[2018-12-25] MEDS ORDERED: Ondansetron ODT 4 MG TAB PO PRN (20:52)
--- NOTE | 2018-12-25 21:28 | RAD ---
Exam: XR Hip Lt 2-3 View HISTORY: Suspected osteomyelitis secondary to decubitus ulcer. COMPARISON: None FINDINGS: No definite osseous destruction is appreciated on this examination. No acute fracture, dislocation, or other acute osseous abnormality is identified. There is gas density seen just below the level of the pubic symphysis. This could potentially represe nt small amount of gas within the rectum. An overlying subcutaneous wound could not be entirely excluded. IMPRESSION: No acute osseous abnormality is appreciated. If there is concern for osteomyelitis, MRI would be more sensitive study of choice for further evaluation.
[2018-12-25] MEDS: Lactated Ringer's 1,000 ML IV SCH (21:46)
[2018-12-25] MEDS ORDERED: Piperacillin/Tazobactam 2.25 GM in Sodium Chloride 0.9% 100 ML IVPB SCH (22:00)
[2018-12-25] MEDS ORDERED: Ondansetron ODT 8 MG TAB SL PRN (22:18)
[2018-12-25] MEDS ORDERED: Ondansetron PF 4 MG/2 ML Vial IVP PRN (22:18)
[2018-12-25 22:23] VITALS: BMI 32.9
[2018-12-25] MEDS ORDERED: Senokot 8.6 MG TAB PO PRN (22:52)
[2018-12-25] MEDS ORDERED: Calcium Carbonate 500 MG ChewTAB PO PRN (23:00)
[2018-12-25] MEDS ORDERED: Divalproex Sodium 125 mg Sprinkle Capsule PO SCH (23:30)
[2018-12-25] MEDS ORDERED: Mirtazapine 30 MG TAB PO SCH (23:30)
[2018-12-25] MEDS: Piperacillin/Tazobactam 2.25 GM in Sodium Chloride 0.9% 100 ML IVPB SCH (23:42)
[2018-12-26 05:42] LABS: Band 18 % (5-11); Eosinophils 1 % (0-10); Hemoglobin 11.6 g/dL (12.0-16.0); Lymphocytes 3 % (21-51); MDiff Complete? YES; Mean Corpuscular HGB CONC 31.8 g/dL (32.0-36.0); Mean Corpuscular Hemoglobin 26.1 pg (27.0-31.0); Mean Corpuscular Volume 82.1 fL (78.0-98.0); Mean Platelet Volume 7.7 fL (7.4-10.4); Monocytes 1 % (0-10); Neutrophil 77 % (42-75); Platelet Count 162 thou/uL (130-400); Platelet Morphology Comment Appears Adequate; RBC Distribution Width 14.3 % (11.5-14.5); Red Blood Cell (RBC) Count 4.44 mill/uL (4.20-5.40); White Blood Cell (WBC) Count 10.5 thou/uL (4.8-10.8)
--- NOTE | 2018-12-26 06:07 | PDOC.FM ---
- Subjective Subjective: Doing well this morning, no acute events overnight. Pt A/O x1 at baseline, denies any fever/chills, CP, SOB, abdominal pain, diarrhea/constipation or urinary sxs. No family at beside. - Objective MAR Reviewed: Yes Vital Signs & Weight: Vital Signs (12 hours) Temp Pulse Resp BP Pulse Ox 12/26/18 04:00 99.5 F 117 H 22 H 125/61 94 L 12/26/18 00:00 98.9 F 119 H 24 H 134/73 98 12/25/18 21:40 97.2 F L 89 20 101/66 98 Weight Weight 95.3 kg I&O: 12/24/18 12/25/18 12/26/18 06:59 06:59 06:59 Intake Total 1096 Balance 1096 Result Diagrams: 12/26/18 05:06 12/26/18 06:15 Phys Exam - Physical Examination Constitutional: NAD (resting comfortably in bed) HEENT: moist MMs Neck: supple Respiratory: no wheezing, no rales, no rhonchi, clear to auscultation bilateral upper airway noise transmitted to lower Cardiovascular: RRR, no significant murmur, no rub Gastrointestinal: soft, non-tender, no distention, positive bowel sounds Musculoskeletal: no edema Neurological: non-focal Deviation from normal: A/O x1, baseline per report Deviation from normal: Stage 4/5 left decubitus ulcer with track, dressing in place, clean and dry Dx/Plan (1) SIRS without infection or organ dysfunction Code(s): R65.10 - SIRS OF NON-INFECTIOUS ORIGIN W/O ACUTE ORGAN DYSFUNCTION Status: Acute (2) Systolic heart failure Code(s): I50.20 - UNSPECIFIED SYSTOLIC (CONGESTIVE) HEART FAILURE Status: Chronic (3) GUCCI (acute kidney injury) Code(s): N17.9 - ACUTE KIDNEY FAILURE, UNSPECIFIED Status: Acute - Plan Plan: 58 y/o F group home resident with h/o mild intellectual disability admitted to Medical for treatment and evaluation of SIRs without a source of infection. # SIRs without a source of infection - Tmax 102 F in ED, tachy to 119, afebrile since admission - BP 83/56 upon initial evaluation, now stable at 125/61. Cortisol 26 - Pt given 3 L NS in the ED. Placed on LR 100 mL/hr - On Vanc and Zosyn, renally dosed per pharmacy - UA small LE and rare bacteria, UCx and BCx pending - CRP 7.9, ESR 25 - CXR no acute CPP # Decubitus Ulcer Stage 4 of left buttocks - Possibly overlying osteomyelitis - Left hip x-ray: no osseous abnormality. - Large tract from skin to base of ulcer. - Consider MRI - Wound care # HFrEF - BNP <10 - Monitor pt closely with the amount of IVF fluids she has received. - Holding BP medications, and diuretics - Echo from 2017 EF 25-30%, will contact PCP for more recent records or obtain repeat echo on this visit # Recent UTI - Pt completed X6 days of bactrim therapy outpatient - UA shows small leuk est, rare bact - Pt on vanc and zosyn, d/c bactrim - awaiting UCx # Elevated DDimer - D-Dimer was 1.06 - Decision was made to not CTA at admission, as D-dimer likely elevated 2/2 infectious process. - Pt's vitals O2 sat 95% on RA, tachy to 130, will monitor renal function and clinical status, consider CTA if sxs persist # GUCCI on CKD - Cr 2.36 -> 1.64. Baseline Cr 0.92 on 10/11/18 - Improved with IVF hydration - Will cont LR @ 100cc/hr and monitor closely for signs of volume overload. # Hypotension - AM cortisol 25 - MIVF - BP stable at 125/61 this morning, will hold BP meds at this time and monitor. Consider restarting when appropriate. # Hx of HTN - Hold BP medications at this time 2/2 hypotension # H/o Intellecutal disability - A/O x1, report that this was baseline, will contact family to determine baseline mentation Code Status: Full code, will call group home and get contact for next of kin to discuss wishes. DVT ppx: SCD's Diet: HH Dispo: Stable, admitted to Medical for evaluation and treatment of SIRs without a know source of infection. Working up possible osetomyelitis vs urinary infection. Addendum - Attending - Attending Attestation Date/Time: 12/26/18 6013 I personally evaluated the patient and discussed the management with Dr. Monica Arevalo I agree with the History, Examination, Assessment and Plan documented above with any addition or exceptions noted below. left buttock with foul fistulous tract rec MRI to r/o osteomyelitis and proceed with CTA r/o PE in setting continued tachycardia and oxygen dependency.
[2018-12-26 06:47] LABS: ALT (SGPT) 19 U/L (8-55); AST (SGOT) 21 U/L (5-34); Albumin 3.6 g/dL (3.5-5.0); Alkaline Phosphatase 95 U/L (40-110); Anion Gap 16 mmol/L (10-20); BUN (Urea Nitrogen) 20 mg/dL (9.8-20.1); Bilirubin, Total 0.4 mg/dL (0.2-1.2); Calc. Creatinine Clearance 57 mL/min (70-130); Calcium 8.4 mg/dL (7.8-10.44); Carbon Dioxide 19 mmol/L (22-29); Chloride 105 mmol/L (98-107); Estimated GFR-MDRD 39; Globulin 3.3 g/dL (2.4-3.5); Glucose 128 mg/dL (70-105); Potassium 4.1 mmol/L (3.5-5.1); Protein, Total 6.9 g/dL (6.0-8.3); Sodium 136 mmol/L (136-145)
[2018-12-26] MEDS: Potassium Chloride 20 MEQ TAB PO SCH (08:23)
[2018-12-26] MEDS: Calcium Carbonate + Vit D 1 TAB PO SCH ×2 (08:23→21:24)
[2018-12-26] MEDS: Piperacillin/Tazobactam 2.25 GM in Sodium Chloride 0.9% 100 ML IVPB SCH ×3 (08:23→23:29)
[2018-12-26] MEDS: Famotidine 20 MG TAB PO SCH (08:23)
[2018-12-26] MEDS: Lactated Ringer's 1,000 ML IV SCH ×3 (08:23→23:03)
[2018-12-26] MEDS: Aspirin 325 mg Enteric Coated Tablet PO SCH (08:23)
[2018-12-26] MEDS: Divalproex Sodium 125 mg Sprinkle Capsule PO SCH ×3 (08:23→21:25)
[2018-12-26] MEDS: Ferrous Gluconate 324 MG TAB PO SCH ×2 (08:24→21:25)
[2018-12-26] MEDS: Multivitamin W/ Minerals 1 TAB PO SCH (08:24)
[2018-12-26] MEDS: Simethicone Chewable 80 MG TAB PO SCH (08:24)
[2018-12-26] MEDS ORDERED: Furosemide 80 MG TAB PO SCH (09:00)
[2018-12-26] MEDS: Acetaminophen 325 MG TAB PO PRN ×3 (09:54→23:29)
[2018-12-26] MEDS ORDERED: ISOVUE-370 76%-LOCM 1 ML ONE (10:34)
[2018-12-26] MEDS ORDERED: Enoxaparin Sodium 40 MG/0.4 ML SYRINGE SC SCH (12:30)
[2018-12-26 12:52] LABS: Bilirubin Negative (Negative); Blood, Urine Trace (Negative); Clarity Clear (Clear); Glucose, Urine (Dipstick) Normal (Negative); Leukocyte 25 Leu/uL (Negative); Nitrite Negative (Negative); Protein, Urine (Dipstick) 10 mg/dL (Neg-Trace); RBC/HPF 0-3 HPF (0-3); Squamous Epithelial 0-3 HPF (0-3); WBC/HPF 0-3 HPF (0-3)
[2018-12-26 13:00] LABS: Bacteria/HPF None Seen HPF (None Seen)
[2018-12-26 13:05] LABS: Troponin I 0.116 ng/mL (< 0.028)
--- NOTE | 2018-12-26 13:20 | CT ---
CTA CHEST WITH CONTRAST: INDICATIONS: Shortness of breath. Possible pulmonary embolus. COMPARISON: None. TECHNIQUE: Axial tomograms obtained with multiplanar reconstruction and 3D post processing. FINDINGS: Suboptimal evaluation of the peripheral pulmonary arteries. No evidence of proximal pulmonary embolus identified to the segmental level. The thoracic aorta is unremarkable with no evidence of dissection. There is mild nonspecific mediastinal and hilar adenopathy. Right hilar lymph nodes measure up to 2 c m. Review of the lung voss reveal numerous right lung pulmonary nodules. There is an 8 mm nodule in th e right upper lobe with two or three other smaller subcentimeter nodules. There is a 2 cm nodular mas s abutting the pleural surface peripherally in the right mid lung, probably right middle lobe. There were small bilateral pleural effusions. There was mild bibasilar atelectasis. Images through the upper abdomen are unremarkable. Osseous structures are unremarkable. IMPRESSION: 1. Suboptimal pulmonary artery opacification. No evidence of proximal pulmonary embolus to the segmen glory level. 2. Mediastinal and hilar adenopathy. Numerous right lung pulmonary nodules suggesting metastatic lung disease. 3. Small bilateral effusions and bibasilar atelectasis. POS: [facility]
[2018-12-26 16:03] LABS: Vancomycin, Random 10.8 ug/mL (See Comment)
[2018-12-26 16:53] LABS: CKMB 1.3 ng/mL (0-6.6)
[2018-12-26] MEDS: Vancomycin HCl 1.5 GM in Sodium Chloride 0.9% 250 ML 300 ML IVPB SCH (17:32)
--- NOTE | 2018-12-26 17:54 | CON ---
DATE OF CONSULTATION: 12/26/2018 This encompassed 70 minutes of time, of that time, greater than 50% was spent with the patient and/or the patient's unit in the hospital. REASON FOR CONSULTATION: Lung mass and mediastinal lymphadenopathy. HISTORY OF PRESENT ILLNESS: The patient is a 58-year-old, who lives in a intermediate. She has some degree of mental retardation. She was brought to the hospital yesterday because of fever and vomiting. Her fever was up to 102. The patient underwent a CT of the chest for reasons that are not clear to me. The CT demonstrates a 2.5 cm right lower lobe superior segment nodule abutting the periphery. There are a couple of upper lobe nodules that are smaller superior to that and there is at least one nodule in the right lower lobe more inferior. She has some nonspecific mediastinal lymphadenopathy with a subcarinal node measuring about 2 cm and some peritracheal nodes that are obvious. I cannot get the patient to give me any corroborating history what I have is obtained from the chart. PAST MEDICAL HISTORY: 1. Deep venous thrombosis. 2. Congestive heart failure. 3. Gastroesophageal reflux. 4. Peptic ulcer disease. 5. Iron-deficiency anemia. 6. Hyperlipidemia. 7. Hypertension. PAST SURGICAL HISTORY: None. FAMILY MEDICAL HISTORY: Not known. SOCIAL HISTORY: Lives in a intermediate. REVIEW OF SYSTEMS: Cannot be obtained. MEDICATIONS: Prior to admission: 1. Bactrim. 2. Zantac. 3. Spironolactone. 4. Simethicone. 5. Senokot. 6. Remeron. 7. Lisinopril. 8. Robitussin. 9. Furosemide. 10. Iron Gluconate. 11. Depakote. 12. Coreg. 13. Calcium carbonate. 14. Atorvastatin. 15. Aspirin. 16. Acetaminophen. Current inpatient medications: 1. Vancomycin. 2. Piperacillin/tazobactam. PHYSICAL EXAMINATION: VITAL SIGNS: Temperature 98.9 after being 102.8 several hours ago, respiratory rate 20, pulse 116, O2 saturation 92%, and blood pressure 97/58. GENERAL: The patient is a middle-aged female, who appears in no distress. HEENT: Pupils react. Sclerae icteric. Oropharynx clear. NECK: No adenopathy or JVD. LUNGS: Clear without wheezing or rhonchi. CARDIAC: S1 and S2. Regular. ABDOMEN: Soft. EXTREMITIES: She has a left buttock stage IV decubitus ulcer. She has no cyanosis or edema. LABORATORY DATA: White blood cell count 10.5, hematocrit 36.5, platelet count 162 with 77% neutrophils, 18% bands. Sodium 136, potassium 4.1, chloride 105, CO2 of 19, BUN 20, creatinine 1.6, and glucose 128. I reviewed the CT scan personally. ASSESSMENT: 1. Scattered right-sided pulmonary nodules in a lifelong nonsmoker. There is also some associated mediastinal lymphadenopathy. 2. Osteomyelitis versus stage IV decubitus ulcer. 3. Mental retardation. RECOMMENDATIONS: 1. I would first try to treat her for causes of infection before proceeding with a biopsy. Given what we are seeing so far endocarditis, probably needs to be ruled out. I have discussed with the resident about getting echocardiogram. 2. If a biopsy needs to be performed, then the most logical location would be 2.5 cm nodule in the right lower lobe as I think this is very minimal to CT needle biopsy. I do not see anything that I could reach with the bronchoscope. Thank you for the referral. Job ID: [id number]
[2018-12-26] MEDS ORDERED: FLU VACC QS2019-20(6MOS UP)/PF 60 MCG/0.5 ML SYRINGE IM ONE (21:00)
[2018-12-26] MEDS: Atorvastatin Calcium 20 MG TAB PO SCH (21:24)
[2018-12-26] MEDS: Mirtazapine 30 MG TAB PO SCH (21:25)
[2018-12-27] MEDS: Acetaminophen 325 MG TAB PO PRN ×2 (04:07→19:42)
--- NOTE | 2018-12-27 06:40 | PDOC.FM ---
- Subjective Subjective: This morning pt endorses mild SOB, overwise no concerns or complaints. Appears at baseline mentation, A/O x1. Endorses fevers/chills overnight. No CP, abdominal pain, n/v, diarrhea/constipation. Tolerating PO well. Spoke with Aunt who is MPOA yesterday, updated on clinical course and current workup. Stated she would like to continue with full workup until we can determine cause of fever and lung masses. Also spoke with PCP who states this is pt's baseline mentation. Has history of IV drug abuse and EtOH abuse. - Objective MAR Reviewed: Yes Vital Signs & Weight: Vital Signs (12 hours) Temp Pulse Resp BP Pulse Ox 12/27/18 04:00 100.7 F H 110 H 21 H 115/67 97 12/27/18 00:31 98.6 F 20 12/27/18 00:00 103.1 F H 125 H 24 H 126/74 96 12/26/18 21:25 98.8 F 12/26/18 20:00 100.7 F H 110 H 21 H 107/68 92 L 12/26/18 19:11 92 L Weight Admit Weight 95.3 kg Weight 95.3 kg I&O: 12/25/18 12/26/18 12/27/18 06:59 06:59 06:59 Intake Total 1096 2842 Output Total 1000 Balance 1096 1842 Result Diagrams: 12/27/18 07:21 12/27/18 07:21 Phys Exam - Physical Examination mild increased respiratory effort, a/ox3, no acute distress HEENT: moist MMs Neck: supple Respiratory: no wheezing decreased breath sounds throughout, poor respiratory effort, mildly course Cardiovascular: RRR, no significant murmur, no rub Gastrointestinal: soft, non-tender, no distention, positive bowel sounds 1+ pitting edema to ankles Neurological: non-focal, moves all 4 limbs Deviation from normal: A/O x1, at baseline per report Dx/Plan (1) SIRS without infection or organ dysfunction Code(s): R65.10 - SIRS OF NON-INFECTIOUS ORIGIN W/O ACUTE ORGAN DYSFUNCTION Status: Acute (2) Systolic heart failure Code(s): I50.20 - UNSPECIFIED SYSTOLIC (CONGESTIVE) HEART FAILURE Status: Chronic (3) GUCCI (acute kidney injury) Code(s): N17.9 - ACUTE KIDNEY FAILURE, UNSPECIFIED Status: Acute - Plan Plan: 58 [facility]/o F [facility] resident with h/o mild intellectual disability admitted to Medical for treatment and evaluation of SIRs without a source of infection, concern for endocarditis vs sacral osteo # SIRs without a source of infection, likely sacral osteo vs endocarditis - Tmax 102 F in ED, tachy to 119, continued tachy and fever spikes overnight - BP 83/56 upon initial evaluation, now stable at 125/61. Cortisol 26 - Pt given 3 L NS in the ED. Placed on LR 100 mL/hr, now overloaded, will d/c IVF - On Vanc and Zosyn, renally dosed per pharmacy - UA small LE and rare bacteria, UCx and BCx pending - CRP 7.9, ESR 25 - CXR no acute CPP, will repeat CXR this AM - Spoke with PCP - h/o IV drug abuse and chronic alcohlism, will obtain echo for eval of endocarditis - Echo to eval for endocarditis - MRI pending # Decubitus Ulcer Stage 4 of left buttocks - Possibly overlying osteomyelitis - Left hip x-ray: no osseous abnormality. - Large tract from skin to base of ulcer. - MRI pending - Wound care - cont vanc and zosyn # HFrEF - BNP <10 - Volume overloaded this morning, d/c IVF, given IVF lasix this morning and restart home lasix - Holding BP medications - Echo from 2016 EF 25-30% - Repeat echo pending #Lung nodules, concern for malignancy vs endocarditis seeding - Dr. Ram, pulm, consulted, recommended continued infectious workup prior to attempting biopsy, rec CT guided biopsy if warranted and possible - Spoke with MPOA, would like full push for diagnosis at this time, will update - Echo pending # Elevated DDimer - D-Dimer was 1.06 - Persistent fever, tachy, and immobilization at [facility] - CTA negative for PE, however demonstrated multiple lung nodules concerning for malignancy # Recent UTI - Pt completed X6 days of bactrim therapy outpatient - UA shows small leuk est, rare bact - Pt on vanc and zosyn, d/c bactrim - awaiting UCx # GUCCI - Cr 2.36 -> 1.39, imporved with IVF - IVF d/c 2/2 overload, will diuresis and cont to monitor # Hypotension, resolved - AM cortisol 25 - MIVF - BP stable, will hold BP meds at this time and monitor. Consider restarting when appropriate. # Hx of HTN - Hold BP medications at this time 2/2 hypotension # H/o Intellecutal disability - A/O x1, report that this was baseline, Aunt (Belle) us MPOA, in contact and will continue to update. Code Status: Full code, will confirm code status with MPOA DVT ppx: SCD's Diet: HH Dispo: Stable, admitted to Medical for evaluation and treatment of SIRs without a know source of infection. Working up possible osetomyelitis vs urinary infection vs endocarditis. Addendum - Attending - Attending Attestation Date/Time: 12/27/181920 I personally evaluated the patient and discussed the management with Dr. Monica Arevalo I agree with the History, Examination, Assessment and Plan documented above with any addition or exceptions noted below. Body habitus precluded patient from MRI . Proceeding with transthoracic echocardiogram r/o endocarditis and consider bone scan. Patient with finding of multiple lung masses with differential cancer verse septic emboli will need to consider CT Guided Biopsy etc at some point will need to discuss further with Pulmonary and IR. MPOA in [place] being updated patient remains full code.
[2018-12-27 07:55] LABS: #Eosinphils 0.1 thou/uL (0.0-0.7); #Lymphocytes 0.9 thou/uL (1.20-3.40); #Monocytes 0.3 thou/uL (0.11-0.59); #Neutrophils 7.3 thou/uL (1.40-6.50); %Eosinophils 0.6 % (0.0-10.0); %Lymphocytes 10.3 % (21.0-51.0); Hemoglobin 10.8 g/dL (12.0-16.0); Mean Corpuscular HGB CONC 31.7 g/dL (32.0-36.0); Mean Corpuscular Hemoglobin 26.6 pg (27.0-31.0); Mean Platelet Volume 7.5 fL (7.4-10.4); Platelet Count 162 thou/uL (130-400); RBC Distribution Width 14.2 % (11.5-14.5); Red Blood Cell (RBC) Count 4.07 mill/uL (4.20-5.40); White Blood Cell (WBC) Count 8.5 thou/uL (4.8-10.8)
[2018-12-27 08:24] LABS: ALT (SGPT) 18 U/L (8-55); AST (SGOT) 28 U/L (5-34); Albumin 3.1 g/dL (3.5-5.0); Alkaline Phosphatase 85 U/L (40-110); Anion Gap 14 mmol/L (10-20); BUN (Urea Nitrogen) Less than 4 mg/dL (9.8-20.1); Bilirubin, Total 0.5 mg/dL (0.2-1.2); Calc. Creatinine Clearance 67 mL/min (70-130); Calcium 8.4 mg/dL (7.8-10.44); Carbon Dioxide 21 mmol/L (22-29); Chloride 104 mmol/L (98-107); Estimated GFR-MDRD 47; Globulin 3.1 g/dL (2.4-3.5); Glucose 108 mg/dL (70-105); Potassium 4.1 mmol/L (3.5-5.1); Protein, Total 6.2 g/dL (6.0-8.3); Sodium 135 mmol/L (136-145)
[2018-12-27] MEDS: Piperacillin/Tazobactam 2.25 GM in Sodium Chloride 0.9% 100 ML IVPB SCH ×2 (08:35→15:52)
[2018-12-27] MEDS: Potassium Chloride 20 MEQ TAB PO SCH (08:36)
[2018-12-27] MEDS: Aspirin 325 mg Enteric Coated Tablet PO SCH (08:42)
[2018-12-27] MEDS: Calcium Carbonate + Vit D 1 TAB PO SCH ×2 (08:42→19:41)
[2018-12-27] MEDS: Ferrous Gluconate 324 MG TAB PO SCH ×2 (08:42→19:42)
[2018-12-27] MEDS: Simethicone Chewable 80 MG TAB PO SCH (08:42)
[2018-12-27] MEDS: Divalproex Sodium 125 mg Sprinkle Capsule PO SCH ×3 (08:42→19:41)
[2018-12-27] MEDS: Multivitamin W/ Minerals 1 TAB PO SCH (08:42)
[2018-12-27] MEDS: Famotidine 20 MG TAB PO SCH (08:42)
[2018-12-27] MEDS: Enoxaparin Sodium 40 MG/0.4 ML SYRINGE SC SCH (08:43)
[2018-12-27] MEDS ORDERED: Furosemide 40 MG/4 ML VIAL SLOW IVP SCH (09:15)
--- NOTE | 2018-12-27 09:16 | PRG ---
DATE OF SERVICE: 12/27/2018 SUBJECTIVE: She had large spikes in temperature last night up to 103.1, her pulse is 98, blood pressure 126/73, respiratory rate 18. She remains very difficult to communicate with, but pleasant. OBJECTIVE: HEENT: Otherwise unremarkable. NECK: No JVD. CHEST: Clear. CARDIAC: S1, S2. Regular. ABDOMEN: Soft. EXTREMITIES: No edema. LABORATORY DATA: White blood cell count 8.5, hematocrit 34.2, and platelet count 162. Sodium 135, potassium 4.1, BUN less than 4, and creatinine 1.39. ASSESSMENT: The patient has a fairly substantial fever with discoid lung nodules on CT scan on the right. RECOMMENDATIONS: I would proceed with echo, rule out endocarditis and perhaps consider a bone scan to evaluate her for osteomyelitis. We might consider getting Dr. Parr involved if nothing appears obvious. If , then she will need a CT needle biopsy of 1 of the nodules in the lung. Job ID: [id number]
[2018-12-27] MEDS ORDERED: Lorazepam 2 MG/ML VIAL SLOW IVP SCH (10:15)
[2018-12-27] MEDS: Lactated Ringer's 1,000 ML IV SCH (11:00)
--- NOTE | 2018-12-27 13:03 | RAD ---
PORTABLE CHEST: HISTORY: Shortness of breath. Fever. CHF. COMPARISON: 12/25/2018 FINDINGS: No evidence of infiltrate seen on portable projection. Heart size upper normal and stable. Vascular m arkings mildly prominent and stable. IMPRESSION: No focal infiltrate or interval change noted. POS: [facility]
[2018-12-27] MEDS: Furosemide 80 MG TAB PO SCH (14:53)
[2018-12-27] MEDS: Vancomycin HCl 1.5 GM in Sodium Chloride 0.9% 250 ML 300 ML IVPB SCH (17:01)
[2018-12-27] MEDS: Mirtazapine 30 MG TAB PO SCH (19:41)
[2018-12-27] MEDS: Atorvastatin Calcium 20 MG TAB PO SCH (19:42)
[2018-12-28] MEDS: Piperacillin/Tazobactam 2.25 GM in Sodium Chloride 0.9% 100 ML IVPB SCH ×2 (00:03→07:58)
--- NOTE | 2018-12-28 06:22 | PDOC.FM ---
- Subjective Subjective: Doing well this morning. No acute events overnight. Denies fever/chills, CP, SOB , n/v, constipation or diarrhea. Poor appetite but drinking shakes. Baseline mentation, A/O x1. - Objective MAR Reviewed: Yes Vital Signs & Weight: Vital Signs (12 hours) Temp Pulse Resp BP Pulse Ox 12/28/18 05:24 98.4 F 113 H 17 111/73 93 L 12/28/18 00:27 98.3 F 115 H 18 101/62 93 L 12/27/18 20:41 98.2 F 120 H 17 105/73 93 L 12/27/18 18:36 98.8 F Weight Admit Weight 95.3 kg Weight 95.3 kg I&O: 12/26/18 12/27/18 12/28/18 06:59 06:59 06:59 Intake Total 1096 2842 2140 Output Total 1000 1050 Balance 1096 1842 1090 Result Diagrams: 12/28/18 06:14 12/28/18 06:14 Phys Exam - Physical Examination Constitutional: NAD (resting comfortably) HEENT: moist MMs Neck: supple Respiratory: no wheezing, no rales, no rhonchi, clear to auscultation bilateral Cardiovascular: RRR, no significant murmur, no rub Gastrointestinal: soft, non-tender, no distention, positive bowel sounds Musculoskeletal: no edema, pulses present Neurological: non-focal Deviation from normal: A/O x1, baseline Dx/Plan (1) SIRS without infection or organ dysfunction Code(s): R65.10 - SIRS OF NON-INFECTIOUS ORIGIN W/O ACUTE ORGAN DYSFUNCTION Status: Acute (2) Systolic heart failure Code(s): I50.20 - UNSPECIFIED SYSTOLIC (CONGESTIVE) HEART FAILURE Status: Chronic (3) GUCCI (acute kidney injury) Code(s): N17.9 - ACUTE KIDNEY FAILURE, UNSPECIFIED Status: Acute - Plan Plan: 58 y/o F [facility] resident with h/o mild intellectual disability admitted to Medical for treatment and evaluation of SIRs without a source of infection, concern for endocarditis vs sacral osteo # SIRs without a source of infection, likely sacral osteo vs endocarditis - Tmax 102 F in ED, tachy to 119, BP 83/56. VS currently stable - On Vanc and Zosyn, renally dosed per pharmacy, will d/c Zosyn and start Rocephin for renal protective concerns - UA small LE and rare bacteria, UCx and BCx NGTD - CRP 7.9, ESR 25 - CXR no acute CPP, will repeat CXR unchanged - Spoke with PCP - h/o IV drug abuse and chronic alcoholism - TTE - difficult study 2/2 body habitus, will need PERLA for further eval, will consult Cards for assistance, apprec recs - Pt could not get MRI 2/2 body habitus, will obtain PERLA and if negative will pursue bone scan for eval of osteo # Decubitus Ulcer Stage 4 of left buttocks - Possibly overlying osteomyelitis - Left hip x-ray: no osseous abnormality. - Large tract from skin to base of ulcer. - Unable to obtain MRI, will await ECHO results and then pursue bone scan if warranted - Wound care - cont vanc and rocephin, d/c zosyn today # HFrEF - BNP <10 - Cont home lasix dose, holding IVF - Holding BP medications - Echo from 2016 EF 25-30% - Repeat echo unable to obtain 2/2 habitus, will obtain PERLA tomorrow - Cards consulted for PERLA, apprec recs #Lung nodules, concern for malignancy vs endocarditis seeding - Dr. Ram, pulm, consulted, recommended continued infectious workup prior to attempting biopsy, rec CT guided biopsy if warranted and possible - Spoke with MPOA, would like full push for diagnosis at this time, will update - TTE poor study 2/2 habitus, PERLA pending # Elevated DDimer - D-Dimer was 1.06 - Persistent fever, tachy[facility] - CTA negative for PE, however demonstrated multiple lung nodules concerning for malignancy # Recent UTI - Pt completed X6 days of bactrim therapy outpatient - UA shows small leuk est, rare bact - Pt on vanc and zosyn, d/c bactrim - UCx NGTD # GUCCI - Cr 2.36 -> 1.39, improved with IVF - IVF d/c 2/2 overload, will diuresis and cont to monitor #History of IV drug abuse and chronic alcoholism - LFTs WNL, history per PCP - Will obtain HIV, RPR, and Hep panel # Hypotension, resolved - AM cortisol 25 - BP stable, will hold BP meds at this time and monitor. Consider restarting when appropriate. # Hx of HTN - Hold BP medications at this time 2/2 hypotension # H/o Intellecutal disability - A/O x1, report that this was baseline, Aunt (Belle) us MPOA, in contact and will continue to update. Code Status: Full code, will confirm code status with MPOA DVT ppx: SCD's Diet: HH Dispo: Stable, admitted to Medical for evaluation and treatment of SIRs without a known source of infection. Working up possible osetomyelitis vs urinary infection vs endocarditis, PERLA tomorrow. Addendum - Attending - Attending Attestation Date/Time: 12/28/18 2732 I personally evaluated the patient and discussed the management with Dr. Arevalo I agree with the History, Examination, Assessment and Plan documented above with any addition or exceptions noted below. MPOA updated on progress and MPOA changed code status to DNR/DNI.
[2018-12-28 06:28] LABS: #Eosinphils 0.1 thou/uL (0.0-0.7); #Monocytes 0.4 thou/uL (0.11-0.59); #Neutrophils 5.6 thou/uL (1.40-6.50); %Basophils 0.3 % (0.0-1.0); %Eosinophils 1.4 % (0.0-10.0); %Lymphocytes 13.8 % (21.0-51.0); %Monocytes 5.5 % (0.0-10.0); Hemoglobin 9.9 g/dL (12.0-16.0); Mean Corpuscular HGB CONC 31.4 g/dL (32.0-36.0); Mean Corpuscular Hemoglobin 25.9 pg (27.0-31.0); Mean Corpuscular Volume 82.4 fL (78.0-98.0); Mean Platelet Volume 7.8 fL (7.4-10.4); Platelet Count 147 thou/uL (130-400); Red Blood Cell (RBC) Count 3.83 mill/uL (4.20-5.40)
[2018-12-28 06:51] LABS: ALT (SGPT) 20 U/L (8-55); AST (SGOT) 29 U/L (5-34); Albumin 3.2 g/dL (3.5-5.0); Alkaline Phosphatase 80 U/L (40-110); Anion Gap 11 mmol/L (10-20); BUN (Urea Nitrogen) 25 mg/dL (9.8-20.1); Bilirubin, Total 0.3 mg/dL (0.2-1.2); Calc. Creatinine Clearance 73 mL/min (70-130); Calcium 8.6 mg/dL (7.8-10.44); Carbon Dioxide 28 mmol/L (22-29); Chloride 102 mmol/L (98-107); Estimated GFR-MDRD 52; Globulin 3.3 g/dL (2.4-3.5); Glucose 124 mg/dL (70-105); Potassium 3.6 mmol/L (3.5-5.1); Protein, Total 6.5 g/dL (6.0-8.3); Sodium 137 mmol/L (136-145)
[2018-12-28] MEDS: Calcium Carbonate + Vit D 1 TAB PO SCH ×2 (08:06→20:33)
[2018-12-28] MEDS: Divalproex Sodium 125 mg Sprinkle Capsule PO SCH ×3 (08:06→20:33)
[2018-12-28] MEDS: Ferrous Gluconate 324 MG TAB PO SCH ×2 (08:06→20:33)
[2018-12-28] MEDS: Aspirin 325 mg Enteric Coated Tablet PO SCH (08:06)
[2018-12-28] MEDS: Furosemide 80 MG TAB PO SCH ×3 (08:06→14:33)
[2018-12-28] MEDS: Famotidine 20 MG TAB PO SCH (08:07)
[2018-12-28] MEDS: Potassium Chloride 20 MEQ TAB PO SCH (08:07)
[2018-12-28] MEDS: Multivitamin W/ Minerals 1 TAB PO SCH (08:07)
[2018-12-28] MEDS: Enoxaparin Sodium 40 MG/0.4 ML SYRINGE SC SCH (08:07)
[2018-12-28] MEDS: Simethicone Chewable 80 MG TAB PO SCH (08:07)
--- NOTE | 2018-12-28 10:51 | PRG ---
DATE OF SERVICE: 12/28/2018 SUBJECTIVE: The patient has had a better fever curve over the last 24 hours. She really cannot add much subjectively. OBJECTIVE: VITAL SIGNS: Temperature 98.8, pulse 116, respirations 20, O2 saturation is 95%, and blood pressure 137/78. HEENT: Unremarkable. NECK: No adenopathy or JVD. CHEST: Clear. CARDIAC: S1, S2. Regular. ABDOMEN: Soft. EXTREMITIES: No edema. DIAGNOSTIC DATA: Echo was really poor quality and did not show much. Micro shows no growth today. ASSESSMENT: Probably some type of disseminated infection either from osteomyelitis or endocarditis. PLAN: I would recommend Infectious Disease consultation to see how they would proceed with further workup. Continue antibiotics in the meantime. If lung biopsy needed, then I would suggest a CT needle biopsy. Job ID: [id number]
[2018-12-28] MEDS: cefTRIAXone\\ROCEPHIN 2 GM in Sodium Chloride 0.9% 100 ML IVPB SCH (12:44)
[2018-12-28 13:29] LABS: Syphilis Antibody Nonreactive (Nonreactive); Syphilis Antibody Index 0.08 S/CO (<1.00 Non-Reactive)
[2018-12-28 13:33] LABS: HBSAg Index 0.26 S/CO (0-0.99); HIV (1/2) Antibody/Antigen Non-Reactive (NonReactive); HIV 1/2 INDEX 0.07 S/CO (<1.00); Hep A IgM AB Non-Reactive (NonReactive); Hep A IgM S/CO 0.12 S/CO (0-0.79); Hep B Surf Ag Non-Reactive S/CO (NonReactive); Hep C IgG Ab Non-Reactive (NonReactive); Hep C Index 0.08 S/CO (0-0.79); Hepatitis B Core IgM Abs Non-Reactive (NonReactive)
[2018-12-28] MEDS: Vancomycin HCl 1.75 GM in Sodium Chloride 0.9% 500 ML IVPB SCH (16:56)
--- NOTE | 2018-12-28 18:18 | CON ---
DATE OF CONSULTATION: 12/28/2018 REASON FOR CONSULTATION: Need for transesophageal echo. HISTORY OF PRESENT ILLNESS: Ms. Swift is a 58-year-old female, who has some level of mental retardation and is unable to make decisions on her own. She came in for fever and vomiting. She has fever. Her temperature has been as high as 103. They have not been able to find a source of her fever, which continues, so Cardiology is being consulted to consider a transesophageal echo to make sure this is not endocarditis. She has been afebrile for the last 24 hours; however, she was as high as 103. She had fevers about 2 or 3 days. She is unable to tell me much information, and all the information is obtained from the chart. PAST MEDICAL HISTORY: 1. History of DVT. 2. History of heart failure. 3. History of GERD. 4. Peptic ulcer disease. 5. Iron-deficiency anemia. 6. Hyperlipidemia. 7. Hypertension. PAST SURGICAL HISTORY: None. FAMILY HISTORY: Noncontributory. SOCIAL HISTORY: Lives in a long-term. No alcohol, tobacco, or drugs. REVIEW OF SYSTEMS: Unobtainable as the patient is really not communicating. OUTPATIENT MEDICATIONS: 1. Bactrim DS. 2. Zantac. 3. Aldactone 12.5 mg a day. 4. Simethicone. 5. Senokot. 6. Potassium chloride. 7. Multivitamin daily. 8. Remeron 30 mg at bedtime. 9. Lisinopril 2.5 mg a day. 10. Guaifenesin. 11. Furosemide 80 mg twice a day. 12. Ferrous gluconate 324 mg twice a day. 13. Depakote 125 mg t.i.d. 14. Coreg 3.125 mg b.i.d. 15. Calcium carbonate. 16. Vitamin D3. 17. Lipitor 20 mg at bedtime. 18. Aspirin 325 a day. 19. Tylenol p.r.n. ALLERGIES: NO KNOWN DRUG ALLERGIES. PHYSICAL EXAMINATION: VITAL SIGNS: Temperature has been as high as 103.1. She had a temperature on , , and . Last temperature was at 4:00 a.m. on the . She has been afebrile for at least 24 hours now. Pulse of 109, respiratory rate 20, saturating 98% on room air, blood pressure 98/57. GENERAL: Awake, alert. Cannot assess orientation. No distress. HEENT: Normocephalic. LUNGS: Clear. CARDIOVASCULAR: S1 and S2. No S3 or S4. No murmurs. ABDOMEN: Positive bowel sounds. EXTREMITIES: No edema. SKIN: Warm and dry. NECK: Supple. No JVD. LABORATORY DATA: Laboratory work was reviewed. Chemistries, UA, toxicology, and serologies were all reviewed. Echocardiogram was reviewed, technically difficult. ASSESSMENT AND PLAN: 1. Fever of unknown origin. 2. We will plan on doing a PERLA to assess for endocarditis. I spoke with Mrs. Swift's medical power of corporate attorney, on [phone]. Mr. Cortes tells me that she wants us to do everything that we feel as necessary to take care of her. She agrees to proceed. I explained to her at length about the procedure, risk of rupturing the esophagus, risks with anesthesia. She agrees to proceed. 3. We will plan on doing PERLA tomorrow. Thank you for letting us to participate in the care of your patient. Job ID: [id number]
[2018-12-28] MEDS: Atorvastatin Calcium 20 MG TAB PO SCH (20:33)
[2018-12-28] MEDS: Mirtazapine 30 MG TAB PO SCH (20:33)
--- NOTE | 2018-12-29 05:26 | PDOC.FM ---
- Subjective Subjective: Doing well this morning, at baseline. No acute events overnight. Denies any fever/chills, SOB, CP, n/v. Spoke with MPOA yesterday and gave update on clinical condition and current plan. Voiced understanding and agreement. Wishes to proceed with workup including PERLA and changed resuscitation status to DNR. - Objective MAR Reviewed: Yes Vital Signs & Weight: Vital Signs (12 hours) Temp Pulse Resp BP Pulse Ox 12/29/18 05:00 98.3 F 96 17 115/67 103 H 12/29/18 00:10 97.7 F 111 H 18 122/79 95 12/28/18 20:07 98.1 F 105 H 19 123/84 95 12/28/18 20:00 94 L Weight Admit Weight 95.3 kg Weight 95.3 kg I&O: 12/27/18 12/28/18 12/29/18 06:59 06:59 06:59 Intake Total 2842 2140 2600 Output Total 1000 1550 1000 Balance 1016 479 6287 Result Diagrams: 12/29/18 06:05 12/29/18 06:05 Phys Exam - Physical Examination Constitutional: NAD (resting comfortably) HEENT: moist MMs Neck: supple Respiratory: no wheezing, no rales, no rhonchi, clear to auscultation bilateral Cardiovascular: RRR, no significant murmur, no rub Gastrointestinal: soft, non-tender, no distention, positive bowel sounds Musculoskeletal: no edema, pulses present Neurological: non-focal Deviation from normal: A/Ox1, baseline mentation Dx/Plan (1) SIRS without infection or organ dysfunction Code(s): R65.10 - SIRS OF NON-INFECTIOUS ORIGIN W/O ACUTE ORGAN DYSFUNCTION Status: Acute (2) Systolic heart failure Code(s): I50.20 - UNSPECIFIED SYSTOLIC (CONGESTIVE) HEART FAILURE Status: Chronic (3) GUCCI (acute kidney injury) Code(s): N17.9 - ACUTE KIDNEY FAILURE, UNSPECIFIED Status: Acute (4) Decubitus ulcer of left buttock, stage 4 Code(s): L89.324 - PRESSURE ULCER OF LEFT BUTTOCK, STAGE 4 Status: Acute - Plan Plan: 58 y/o F long-term resident with mild intellectual disability admitted to Medical for treatment and evaluation of SIRs without a source of infection, concern for endocarditis vs sacral osteo # SIRs without a source of infection, likely sacral osteo vs endocarditis - Tmax 102 F in ED, tachy to 119, BP 83/56. Currently tachy to 110s, now afebrile 24-48hours on abx - On Vanc (Day 5) and Rocephin (Day 2), s/p Zosyn x3d - UCx and BCx NGTD - CRP 7.9, ESR 25 - CXR no acute CPP on admission, repeat CXR unchanged - Spoke with PCP - h/o IV drug abuse and chronic alcoholism - TTE - difficult study 2/2 body habitus, will need PERLA for further eval, will consult Cards for assistance, apprec recs - Pt could not get MRI 2/2 body habitus, will obtain PERLA and if negative will pursue bone scan for eval of osteo # Decubitus Ulcer Stage 4 of left buttocks - Possibly overlying osteomyelitis - Left hip x-ray: no osseous abnormality. - Unable to obtain MRI, will await ECHO results and then pursue bone scan if warranted - Wound care - 0.3cm depth with epithelium at base - cont vanc and rocephin, s/p zosyn # HFrEF - BNP <10 - Cont home lasix dose, holding IVF - Holding BP medications 2/2 stable BP - Echo from 2017 EF 25-30% - Repeat TTE unable to obtain 2/2 habitus, cards consulted, will obtain PERLA today #Lung nodules, concern for malignancy vs endocarditis seeding - Dr. Ram, pulm, consulted, recommended continued infectious workup prior to attempting biopsy, rec CT guided biopsy if warranted and possible - Spoke with [facility], would like cont workup for diagnosis at this time, will cont to update - TTE poor study 2/2 habitus, PERLA pending # Elevated DDimer - D-Dimer 1.06 - CTA negative for PE, however demonstrated multiple lung nodules concerning for malignancy # GUCCI, resolved - Cr 2.36 -> 1.02 - Cont home lasix, cont to monitor #History of IV drug abuse and chronic alcoholism - LFTs WNL, history per PCP - HIV, RPR, and Hep panel negative # Hx of HTN - initially hypotensive on presentation, currently stable. Cortisol 25 - Hold BP medications at this time and restart when appropriate # H/o Intellectual disability - A/O x1, report this is baseline per MPOA and PCP Code Status: DNR - spoke with Belle, aunt who is MPOA, and obtained code status after thorough discussion of code status options DVT ppx: Lovenox Diet: NPO for PERLA Dispo: Stable, admitted to Medical for evaluation and treatment of SIRs without a known source of infection. Working up possible osetomyelitis vs endocarditis, PERLA this morning. Addendum - Attending - Attending Attestation Date/Time: 12/29/182128 I personally evaluated the patient and discussed the management with I agree with the History, Examination, Assessment and Plan documented above with any addition or exceptions noted below.
[2018-12-29 06:17] LABS: #Eosinphils 0.2 thou/uL (0.0-0.7); #Lymphocytes 0.8 thou/uL (1.20-3.40); #Monocytes 0.4 thou/uL (0.11-0.59); #Neutrophils 5.2 thou/uL (1.40-6.50); %Basophils 0.3 % (0.0-1.0); %Eosinophils 3.7 % (0.0-10.0); %Lymphocytes 12.1 % (21.0-51.0); %Monocytes 6.3 % (0.0-10.0); %Neutrophils 77.7 % (42.0-75.0); Mean Corpuscular HGB CONC 31.6 g/dL (32.0-36.0); Mean Corpuscular Hemoglobin 26.3 pg (27.0-31.0); Mean Corpuscular Volume 83.2 fL (78.0-98.0); Mean Platelet Volume 7.5 fL (7.4-10.4); Platelet Count 173 thou/uL (130-400); RBC Distribution Width 14.1 % (11.5-14.5); Red Blood Cell (RBC) Count 3.81 mill/uL (4.20-5.40); White Blood Cell (WBC) Count 6.7 thou/uL (4.8-10.8)
[2018-12-29 06:40] LABS: ALT (SGPT) 19 U/L (8-55); AST (SGOT) 28 U/L (5-34); Albumin 3.3 g/dL (3.5-5.0); Alkaline Phosphatase 84 U/L (40-110); Anion Gap 13 mmol/L (10-20); BUN (Urea Nitrogen) 25 mg/dL (9.8-20.1); Bilirubin, Total 0.3 mg/dL (0.2-1.2); Calc. Creatinine Clearance 92 mL/min (70-130); Calcium 8.7 mg/dL (7.8-10.44); Carbon Dioxide 29 mmol/L (22-29); Chloride 100 mmol/L (98-107); Estimated GFR-MDRD 68; Globulin 3.6 g/dL (2.4-3.5); Glucose 95 mg/dL (70-105); Potassium 3.4 mmol/L (3.5-5.1); Protein, Total 6.9 g/dL (6.0-8.3); Sodium 139 mmol/L (136-145)
[2018-12-29] MEDS ORDERED: Potassium Chloride 20 MEQ TAB PO SCH (09:15)
--- NOTE | 2018-12-29 09:58 | PRG ---
DATE OF SERVICE: 12/29/2018 SUBJECTIVE: She is lying in bed, does not say a whole lot, looks stable. OBJECTIVE: VITAL SIGNS: Temperature 99.1, pulse 103, respirations 20, O2 saturation 99%, and blood pressure 120/76. HEENT: Unremarkable. NECK: No adenopathy or JVD. CHEST: Clear to auscultation. CARDIAC: S1 and S2, regular. ABDOMEN: Soft. EXTREMITIES: No edema. LABORATORY DATA: White blood cell count 6.7, hematocrit 31.7, and platelet count 173. Sodium 139, potassium 3.4, chloride 100, CO2 of 29, BUN 25, creatinine 1.0, and glucose 113. ASSESSMENT: 1. Lung nodules. 2. Fever. 3. Decubitus ulcer. PLAN: The patient is undergoing PERLA today with further disposition to follow. She is continuing antibiotic therapy. I will check her again Tuesday if she is still here. Job ID: [id number]
--- NOTE | 2018-12-29 10:09 | EKG ---
Test Reason : Blood Pressure : / mmHG Vent. Rate : 120 BPM Atrial Rate : 120 BPM P-R Int : 136 ms QRS Dur : 090 ms QT Int : 328 ms P-R-T Axes : 060 042 080 degrees QTc Int : 463 ms Sinus tachycardia Nonspecific T wave abnormality Abnormal ECG Confirmed by DIAMANTE SOUZA MD ([id number]) on 12/29/2018 10:08:31 AM Referred By: KIMO MARTINEZ Confirmed By:DIAMANTE SOUZA MD
[2018-12-29] MEDS: Calcium Carbonate + Vit D 1 TAB PO SCH ×2 (10:42→20:17)
[2018-12-29] MEDS: Divalproex Sodium 125 mg Sprinkle Capsule PO SCH ×3 (10:42→20:18)
[2018-12-29] MEDS: Potassium Chloride 20 MEQ TAB PO SCH (10:42)
[2018-12-29] MEDS: Aspirin 325 mg Enteric Coated Tablet PO SCH (10:42)
[2018-12-29] MEDS: Furosemide 80 MG TAB PO SCH ×2 (10:43→14:31)
[2018-12-29] MEDS: Multivitamin W/ Minerals 1 TAB PO SCH (10:43)
[2018-12-29] MEDS: Simethicone Chewable 80 MG TAB PO SCH (10:43)
[2018-12-29] MEDS: Ferrous Gluconate 324 MG TAB PO SCH ×2 (10:43→20:17)
[2018-12-29] MEDS: Enoxaparin Sodium 40 MG/0.4 ML SYRINGE SC SCH (10:43)
[2018-12-29] MEDS: Famotidine 20 MG TAB PO SCH (10:43)
[2018-12-29] MEDS: cefTRIAXone\\ROCEPHIN 2 GM in Sodium Chloride 0.9% 100 ML IVPB SCH (12:45)
[2018-12-29] MEDS ORDERED: Lidocaine 1% PF 5 ML VIAL ONE ×2 (14:47→16:24)
[2018-12-29] MEDS ORDERED: PROPOFOL 200 MG/20 ML VIAL ONE (14:47)
[2018-12-29] MEDS ORDERED: PROPOFOL 40 ML ONE (16:24)
[2018-12-29] MEDS ORDERED: Ondansetron HCl/PF 4 MG/2 ML Vial IVP PRN (16:46)
[2018-12-29] MEDS: Vancomycin HCl 1.75 GM in Sodium Chloride 0.9% 500 ML IVPB SCH (18:25)
--- NOTE | 2018-12-29 19:28 | ECHO ---
DATE OF SERVICE: 12/29/18 PREPROCEDURE DIAGNOSIS: Fever of unknown origin. The patient is a 58-year-old -[place] female who comes to the PACU for planned transesophagea l echo. Consents were obtained from her medical power of cage maker for anesthesia, PERLA and rescinding the DNR. Multiplanar views were obtained. The Anesthesiology department provided with sedation for the patient . Please see their notes for details. After adequate sedation was achieved, transesophageal probe was inserted into the mouth and into the esophagus without issues. Multiplanar views were obtained. Left ventricle is normal size, normal wall thickness. Systolic function appears to be normal. Estima marquez EF at 55-60%. Left atrium is normal size. Left atrial appendage is trabeculated with normal velocities. No mass or thrombus. Right atrium is normal size. The interatrial septum appears to be intact by color Doppler and by agitated saline study. The right ventricle is normal size with normal RV systolic function. Aortic valve is structurally normal. Three cusps. No stenosis or regurgitation. Mitral valve is structurally normal. No stenosis. There is mild MR. There is a round mass attached to the chordea tendon of the anterior mitral valve leaflet suggestive of a large vegetation. This is no t impairing valve functionality. Tricuspid valve is structurally normal. No stenosis. There is mild TR. Pulmonary valve is not well seen. No significant stenosis or regurgitation. CONCLUSIONS: 1. Normal systolic function, EF at 55-60%. 2. Intact intra-atrial septum. 3. Mild mitral regurgitation. There is a circular mass attached to the chordea tendineae of the post erior mitral valve leaflets suggestive of mitral valve endocarditis. This is not impairing valve fun ctionality. 4. Mild TR.
[2018-12-29] MEDS: Acetaminophen 325 MG TAB PO PRN (20:17)
[2018-12-29] MEDS: Atorvastatin Calcium 20 MG TAB PO SCH (20:17)
[2018-12-29] MEDS: Mirtazapine 30 MG TAB PO SCH (20:17)
[2018-12-30 05:17] LABS: #Eosinphils 0.3 thou/uL (0.0-0.7); #Monocytes 0.5 thou/uL (0.11-0.59); #Neutrophils 3.8 thou/uL (1.40-6.50); %Basophils 0.3 % (0.0-1.0); %Eosinophils 4.8 % (0.0-10.0); %Lymphocytes 18.2 % (21.0-51.0); %Monocytes 8.8 % (0.0-10.0); %Neutrophils 67.9 % (42.0-75.0); Mean Corpuscular HGB CONC 30.6 g/dL (32.0-36.0); Mean Corpuscular Hemoglobin 25.9 pg (27.0-31.0); Mean Corpuscular Volume 84.8 fL (78.0-98.0); Mean Platelet Volume 7.2 fL (7.4-10.4); Platelet Count 166 thou/uL (130-400); RBC Distribution Width 14.1 % (11.5-14.5); Red Blood Cell (RBC) Count 3.85 mill/uL (4.20-5.40); White Blood Cell (WBC) Count 5.6 thou/uL (4.8-10.8)
[2018-12-30 05:49] LABS: ALT (SGPT) 19 U/L (8-55); AST (SGOT) 29 U/L (5-34); Albumin 3.2 g/dL (3.5-5.0); Alkaline Phosphatase 85 U/L (40-110); Anion Gap 13 mmol/L (10-20); BUN (Urea Nitrogen) 18 mg/dL (9.8-20.1); Bilirubin, Total 0.3 mg/dL (0.2-1.2); Calc. Creatinine Clearance 107 mL/min (70-130); Calcium 8.4 mg/dL (7.8-10.44); Carbon Dioxide 28 mmol/L (22-29); Chloride 101 mmol/L (98-107); Estimated GFR-MDRD 81; Globulin 3.4 g/dL (2.4-3.5); Glucose 95 mg/dL (70-105); Potassium 3.3 mmol/L (3.5-5.1); Protein, Total 6.6 g/dL (6.0-8.3); Sodium 139 mmol/L (136-145)
--- NOTE | 2018-12-30 06:15 | PDOC.FM ---
- Subjective Subjective: Pt doing well this morning, no acute events overnight. At baseline mentation. Denies any fever/chills, SOB, n/v/d/c, abdominal pain. PERLA done yesterday demonstrating mitral valve bacterial endocarditis. - Objective MAR Reviewed: Yes Vital Signs & Weight: Vital Signs (12 hours) Temp Pulse Resp BP Pulse Ox 12/30/18 05:00 97.5 F L 98 20 125/87 98 12/30/18 00:15 101/57 L 12/30/18 00:00 98.1 F 101 H 20 94/60 93 L 12/29/18 20:00 94 L 12/29/18 19:51 99.0 F 102 H 18 105/70 94 L 12/29/18 18:30 102 H 96/63 12/29/18 18:15 107 H 96/53 L Weight Admit Weight 95.3 kg Weight 95.3 kg I&O: 12/28/18 12/29/18 12/30/18 06:59 06:59 06:59 Intake Total 2140 2700 1050 Output Total 1550 1500 1550 Balance 590 1200 -500 Result Diagrams: 12/30/18 05:09 12/30/18 05:09 Phys Exam - Physical Examination Constitutional: NAD (resting comfortably in bed) HEENT: moist MMs Neck: supple Respiratory: no wheezing, no rales, no rhonchi, clear to auscultation bilateral Cardiovascular: RRR, no significant murmur, no rub Gastrointestinal: soft, non-tender, no distention, positive bowel sounds Musculoskeletal: no edema Neurological: non-focal Deviation from normal: A/O x 1, appears at baseline per reports Dx/Plan (1) SIRS without infection or organ dysfunction Code(s): R65.10 - SIRS OF NON-INFECTIOUS ORIGIN W/O ACUTE ORGAN DYSFUNCTION Status: Acute (2) Systolic heart failure Code(s): I50.20 - UNSPECIFIED SYSTOLIC (CONGESTIVE) HEART FAILURE Status: Chronic (3) GUCCI (acute kidney injury) Code(s): N17.9 - ACUTE KIDNEY FAILURE, UNSPECIFIED Status: Acute (4) Decubitus ulcer of left buttock, stage 4 Code(s): L89.324 - PRESSURE ULCER OF LEFT BUTTOCK, STAGE 4 Status: Acute - Plan Plan: 58 [facility]/o F [facility] resident with mild intellectual disability admitted to Medical for treatment and evaluation of SIRs without a source of infection, found to have bacterial endocarditis. # Bacterial Endocarditis - Tmax 102 F in ED, tachy to 119, BP 83/56. Currently tachy to 100s, afebrile > 48hours on abx - On Vanc (Day 5) and Rocephin (Day 2), s/p Zosyn x3d - will d/c rocephin and cont vanc - BCx NGTD x2 sets - CRP 7.9, ESR 25 - CXR no acute CPP on admission, repeat CXR unchanged - Spoke with PCP - h/o IV drug abuse and chronic alcoholism - TTE - difficult study 2/2 body habitus, will need PERLA EF 55-60%, mitrial valve mass suggestive of endocarditis - Will need multiple weeks of iv abx, will place order for picc line # Decubitus Ulcer Stage 4 of left buttocks, healing - Left hip x-ray: no osseous abnormality. - Unable to obtain MRI, Lower suspicion for osteomyelitis as endocarditis found on PERLA - Wound care - 0.3cm depth with epithelium at base, appears non-infected #UTI, treated - Dirty UA, UCx at [place] proteus <10,000CFU and alpha-strep, suscept to rocephin - now s/p 3 days rocephin and 4 days zosyn. Will d/c rocphin today - repeat UCx NGTD # HFpEF - BNP <10 - Cont home lasix dose, holding IVF - Holding BP medications 2/2 stable BP, cont to monitor - Echo from 2016 EF 25-30%, PERLA yesterday EF 55-60% #Lung nodules, likely endocarditis seeding - Dr. Ram, pulm, consulted, recommended continued infectious workup prior to attempting biopsy, rec CT guided biopsy if warranted and possible - [facility], would like cont workup for diagnosis at this time, will cont to update - TTE poor study 2/2 habitus, PERLA bacterial endocarditis # Elevated DDimer - D-Dimer 1.06 - CTA negative for PE, however demonstrated multiple lung nodules # GUCCI, resolved - Cr 2.36 -> 0.87 - Cont home lasix, cont to monitor #History of IV drug abuse and chronic alcoholism - LFTs WNL, history per PCP - HIV, RPR, and Hep panel negative # Hx of HTN - initially hypotensive on presentation, currently stable. Cortisol 25 - Hold BP medications at this time and restart when appropriate # H/o Intellectual disability - A/O x1, report this is baseline per MPOA and PCP Code Status: DNR - spoke with Belle, aunt who is MPOA, and obtained code status after thorough discussion of code status options DVT ppx: Lovenox Diet: HH IVF: SL Dispo: Stable, admitted to Medical for evaluation and treatment of SIRs without a known source of infection. Found to have bacterial endocarditis. Clinical status improved. VSS. Will obtain Picc line for long-term abx.
[2018-12-30] MEDS: Ferrous Gluconate 324 MG TAB PO SCH ×2 (08:58→21:09)
[2018-12-30] MEDS: Furosemide 80 MG TAB PO SCH ×2 (08:58→15:19)
[2018-12-30] MEDS: Aspirin 325 mg Enteric Coated Tablet PO SCH (08:58)
[2018-12-30] MEDS: Enoxaparin Sodium 40 MG/0.4 ML SYRINGE SC SCH (08:58)
[2018-12-30] MEDS: Famotidine 20 MG TAB PO SCH (08:58)
[2018-12-30] MEDS: Multivitamin W/ Minerals 1 TAB PO SCH (08:58)
[2018-12-30] MEDS: Calcium Carbonate + Vit D 1 TAB PO SCH ×2 (08:59→21:09)
[2018-12-30] MEDS: Potassium Chloride 20 MEQ TAB PO SCH (08:59)
[2018-12-30] MEDS: Simethicone Chewable 80 MG TAB PO SCH (08:59)
[2018-12-30] MEDS: Divalproex Sodium 125 mg Sprinkle Capsule PO SCH ×3 (09:25→21:09)
[2018-12-30] MEDS: cefTRIAXone\\ROCEPHIN 2 GM in Sodium Chloride 0.9% 100 ML IVPB SCH (12:40)
--- NOTE | 2018-12-30 17:47 | SPC ---
Exam: Ultrasound guided left upper extremity PICC line placement Exposure: 2820 mGy^cm2. Fluoroscopy time: 0.3 minutes HISTORY: Infection. IV antibiotics are required. FINDINGS: Successful left upper extremity PICC line placement with ultrasound guidance. Single lumen 5 [place] catheter terminates in the right atrium. 49 cm trim length. Single-lumen flushes and aspirates without difficulty TECHNIQUE: Consent obtained to perform a left upper chin PICC line with ultrasound guidance. Left arm was prepped and draped sterile fashion. 1% lidocaine, buffered with sodium bicarbonate was used for local anesthesia. Under ultrasound guidance, micropuncture needle was used to cannulate the basil ic vein. A 0.018 guidewire was advanced through the needle to the level of the superior vena cava. Under fluoroscopy, the wire was advanced into the inferior vena cava to document venous access. Wire was subsequently pulled back to the right atrium. Tract was dilated. A single lumen 5 Bolivian catheter was advanced over the wire. 49 cm trim length. IMPRESSION: Successful left upper extremity PICC line placement with ultrasound guidance. Transcribed Date/Time: 12/30/2018 5:57 PM
[2018-12-30] MEDS: Vancomycin HCl 1.75 GM in Sodium Chloride 0.9% 500 ML IVPB SCH (19:21)
[2018-12-30] MEDS: Mirtazapine 30 MG TAB PO SCH (21:09)
[2018-12-30] MEDS: Atorvastatin Calcium 20 MG TAB PO SCH (21:09)
[2018-12-31 05:21] LABS: #Eosinphils 0.3 thou/uL (0.0-0.7); #Lymphocytes 0.8 thou/uL (1.20-3.40); #Monocytes 0.5 thou/uL (0.11-0.59); #Neutrophils 4.3 thou/uL (1.40-6.50); %Basophils 0.3 % (0.0-1.0); %Eosinophils 4.5 % (0.0-10.0); %Lymphocytes 14.2 % (21.0-51.0); Hemoglobin 9.4 g/dL (12.0-16.0); Mean Corpuscular HGB CONC 32.2 g/dL (32.0-36.0); Mean Corpuscular Hemoglobin 26.6 pg (27.0-31.0); Mean Corpuscular Volume 82.5 fL (78.0-98.0); Platelet Count 199 thou/uL (130-400); RBC Distribution Width 13.9 % (11.5-14.5); Red Blood Cell (RBC) Count 3.54 mill/uL (4.20-5.40); White Blood Cell (WBC) Count 5.9 thou/uL (4.8-10.8)
--- NOTE | 2018-12-31 05:36 | PDOC.FM ---
- Subjective Subjective: Pt doing well this morning. No acute events overnight. PICC placement yesterday , tolerated well. This morning resting comfortably, denies any CP, SOB, n/v. Decreased PO intake per nurse 2/2 decreased appetite. - Objective MAR Reviewed: Yes Vital Signs & Weight: Vital Signs (12 hours) Temp Pulse Resp BP Pulse Ox 12/30/18 20:00 97.2 F L 96 18 111/71 97 Weight Admit Weight 95.3 kg Weight 95.3 kg I&O: 12/29/18 12/30/18 12/31/18 06:59 06:59 06:59 Intake Total 2700 1050 710 Output Total 1500 1550 750 Balance 1200 -500 -40 Result Diagrams: 12/31/18 05:09 12/31/18 05:09 Phys Exam - Physical Examination Constitutional: NAD (resting comfortably in bed) HEENT: moist MMs Neck: supple Respiratory: no wheezing, no rales, no rhonchi, clear to auscultation bilateral Cardiovascular: RRR, no significant murmur, no rub Gastrointestinal: soft, non-tender, no distention, positive bowel sounds Musculoskeletal: no edema, pulses present Neurological: non-focal Deviation from normal: PICC in place on Left Dx/Plan (1) SIRS without infection or organ dysfunction Code(s): R65.10 - SIRS OF NON-INFECTIOUS ORIGIN W/O ACUTE ORGAN DYSFUNCTION Status: Acute (2) Systolic heart failure Code(s): I50.20 - UNSPECIFIED SYSTOLIC (CONGESTIVE) HEART FAILURE Status: Chronic (3) GUCCI (acute kidney injury) Code(s): N17.9 - ACUTE KIDNEY FAILURE, UNSPECIFIED Status: Acute (4) Decubitus ulcer of left buttock, stage 4 Code(s): L89.324 - PRESSURE ULCER OF LEFT BUTTOCK, STAGE 4 Status: Acute (5) Bacterial endocarditis Code(s): I33.0 - ACUTE AND SUBACUTE INFECTIVE ENDOCARDITIS Status: Acute - Plan Plan: 58 y/o AAF [facility] resident with intellectual disability admitted to [facility] for treatment and evaluation of SIRs without a source of infection, found to have bacterial endocarditis. # Sepsis 2/2 Bacterial Endocarditis - Tmax 102 F in ED, tachy to 119, BP 83/56. VSS, Currently tachy to 100s, afebrile >48hours on abx - On Vanc (Day 6). s/p Rocephin x2d and Zosyn x3d - BCx NGTD x2 sets - CXR no acute CPP on admission, repeat CXR unchanged - Spoke with PCP - h/o IV drug abuse and chronic alcoholism - TTE - difficult study 2/2 body habitus, PERLA EF 55-60%, mitrial valve mass suggestive of endocarditis - Will need 6 weeks of iv abx, picc line place - will need PERLA post-treatment to evaluation mitral valve - Medically stable and improved, CM assistance for placement back to [facility] # Decubitus Ulcer Stage 4 of left buttocks, healing - Left hip x-ray: no osseous abnormality. - Unable to obtain MRI, Lower suspicion for osteomyelitis as endocarditis found on PERLA - Wound care - 0.3cm depth with epithelium at base, appears non-infected, apprec assistance #Hypokalemia - K 2.9, on lasix and potassium at home - will replace, check Mg, and recheck BMP at 1100 #UTI, treated - UCx at [place] proteus <10,000CFU and alpha-strep, susceptible to rocephin - now s/p 3 days rocephin and 4 days zosyn. - repeat UCx NGTD # HFpEF - BNP <10 - Cont home lasix dose, holding IVF - Holding BP medications 2/2 stable BP, cont to monitor - monitor UOP and fluid status - Echo from 2017 EF 25-30%, PERLA yesterday EF 55-60% #Lung nodules, likely endocarditis seeding - Dr. Ram, pulm, consulted, bacterial endocarditis, will cont to follow - TTE poor study 2/2 habitus, PERLA bacterial endocarditis - will need repeat CT as outpatient after completion of abx course to reevaluate # Elevated DDimer - D-Dimer 1.06 - CTA negative for PE, however demonstrated multiple lung nodules # GUCCI, resolved - Cr 2.36 -> 0.87 - Cont home lasix, cont to monitor #History of IV drug abuse and chronic alcoholism - LFTs WNL, history per PCP - HIV, RPR, and Hep panel negative # Hx of HTN - initially hypotensive on presentation, currently stable. Cortisol 25 - Hold BP medications at this time and restart when appropriate # H/o Intellectual disability - A/O x1, report this is baseline per MPOA and PCP - PT/OT to eval and tx Code Status: DNR - spoke with Belle, aunt who is MPOA, and obtained code status after thorough discussion of code status options DVT ppx: Lovenox Diet: HH IVF: SL Dispo: Stable, admitted to Medical for evaluation and treatment of SIRs without a known source of infection. Found to have bacterial endocarditis. Clinical status improved. VSS. PICC line obtained. CM assistance for placement back to [facility].
[2018-12-31 05:58] LABS: ALT (SGPT) 16 U/L (8-55); AST (SGOT) 22 U/L (5-34); Albumin 2.9 g/dL (3.5-5.0); Alkaline Phosphatase 73 U/L (40-110); Anion Gap 13 mmol/L (10-20); BUN (Urea Nitrogen) 12 mg/dL (9.8-20.1); Bilirubin, Total 0.2 mg/dL (0.2-1.2); Calc. Creatinine Clearance 128 mL/min (70-130); Calcium 8.4 mg/dL (7.8-10.44); Carbon Dioxide 30 mmol/L (22-29); Chloride 100 mmol/L (98-107); Estimated GFR-MDRD Greater than 90; Globulin 3.3 g/dL (2.4-3.5); Glucose 97 mg/dL (70-105); Protein, Total 6.2 g/dL (6.0-8.3); Sodium 140 mmol/L (136-145)
[2018-12-31 06:09] LABS: Potassium 2.9 mmol/L (3.5-5.1)
[2018-12-31] MEDS ORDERED: Potassium Chloride 20 MEQ TAB PO SCH ×3 (06:30→13:00)
[2018-12-31] MEDS: Simethicone Chewable 80 MG TAB PO SCH (08:34)
[2018-12-31] MEDS: Aspirin 325 mg Enteric Coated Tablet PO SCH (08:34)
[2018-12-31] MEDS: Enoxaparin Sodium 40 MG/0.4 ML SYRINGE SC SCH (08:34)
[2018-12-31] MEDS: Furosemide 80 MG TAB PO SCH ×2 (08:34→14:14)
[2018-12-31] MEDS: Ferrous Gluconate 324 MG TAB PO SCH ×2 (08:34→20:10)
[2018-12-31] MEDS: Multivitamin W/ Minerals 1 TAB PO SCH (08:34)
[2018-12-31] MEDS: Famotidine 20 MG TAB PO SCH (08:34)
[2018-12-31] MEDS: Calcium Carbonate + Vit D 1 TAB PO SCH ×2 (08:34→20:10)
[2018-12-31] MEDS: Divalproex Sodium 125 mg Sprinkle Capsule PO SCH ×3 (08:34→20:09)
[2018-12-31 10:41] LABS: Anion Gap 11 mmol/L (10-20); BUN (Urea Nitrogen) 11 mg/dL (9.8-20.1); Calc. Creatinine Clearance 118 mL/min (70-130); Calcium 8.2 mg/dL (7.8-10.44); Carbon Dioxide 32 mmol/L (22-29); Chloride 101 mmol/L (98-107); Estimated GFR-MDRD Greater than 90; Glucose 141 mg/dL (70-105); Potassium 3.9 mmol/L (3.5-5.1); Sodium 140 mmol/L (136-145)
--- NOTE | 2018-12-31 17:07 | PRG ---
DATE OF SERVICE: 12/31/2018 The patient is really unchanged. We are giving her IV vancomycin and the plan is for 6 weeks for her bacterial endocarditis. culture that was positive, but the echocardiogram showed vegetations and made sense clinically. So, PICC line has been placed, it is just a matter of placement right now getting [facility] for outpatient long-term vancomycin. Job ID: [id number]
[2018-12-31] MEDS: Vancomycin HCl 1.75 GM in Sodium Chloride 0.9% 500 ML IVPB SCH (17:19)
[2018-12-31] MEDS: Mirtazapine 30 MG TAB PO SCH (20:10)
[2018-12-31] MEDS: Atorvastatin Calcium 20 MG TAB PO SCH (20:10)
[2019-01-01 07:15] LABS: #Eosinphils 0.4 thou/uL (0.0-0.7); #Lymphocytes 1.2 thou/uL (1.20-3.40); #Monocytes 0.5 thou/uL (0.11-0.59); #Neutrophils 5.5 thou/uL (1.40-6.50); %Basophils 0.3 % (0.0-1.0); %Lymphocytes 15.5 % (21.0-51.0); %Monocytes 6.8 % (0.0-10.0); %Neutrophils 72.5 % (42.0-75.0); Mean Corpuscular HGB CONC 31.8 g/dL (32.0-36.0); Mean Corpuscular Hemoglobin 26.6 pg (27.0-31.0); Mean Corpuscular Volume 83.6 fL (78.0-98.0); Mean Platelet Volume 7.2 fL (7.4-10.4); Platelet Count 268 thou/uL (130-400); RBC Distribution Width 13.8 % (11.5-14.5); Red Blood Cell (RBC) Count 3.75 mill/uL (4.20-5.40); White Blood Cell (WBC) Count 7.6 thou/uL (4.8-10.8)
[2019-01-01 07:36] LABS: Iron 45 ug/dL (50-170); Iron Binding Capacity, Total 218 mcg/dL (265-497)
[2019-01-01 07:37] LABS: ALT (SGPT) 22 U/L (8-55); AST (SGOT) 22 U/L (5-34); Alkaline Phosphatase 76 U/L (40-110); Anion Gap 12 mmol/L (10-20); BUN (Urea Nitrogen) 15 mg/dL (9.8-20.1); Bilirubin, Total 0.2 mg/dL (0.2-1.2); Calc. Creatinine Clearance 120 mL/min (70-130); Calcium 8.6 mg/dL (7.8-10.44); Carbon Dioxide 29 mmol/L (22-29); Chloride 102 mmol/L (98-107); Estimated GFR-MDRD Greater than 90; Globulin 3.3 g/dL (2.4-3.5); Glucose 105 mg/dL (70-105); Potassium 3.5 mmol/L (3.5-5.1); Protein, Total 6.3 g/dL (6.0-8.3); Sodium 139 mmol/L (136-145)
[2019-01-01] MEDS ORDERED: Potassium Chloride 20 MEQ TAB PO SCH (08:00)
[2019-01-01 08:02] LABS: Ferritin 128.73 ng/mL (10-291)
--- NOTE | 2019-01-01 08:20 | PDOC.FM ---
- Subjective Subjective: Doing well this morning. No acute events overnight. Tolerating PO. Denies any CP , SOB, fevers/chills, n/v. At baseline mentation. - Objective MAR Reviewed: Yes Vital Signs & Weight: Vital Signs (12 hours) Temp Pulse Resp BP Pulse Ox 01/01/19 04:20 97.8 F 94 16 92/59 L 92 L Weight Admit Weight 95.3 kg Weight 95.3 kg I&O: 12/31/18 01/01/19 01/02/19 06:59 06:59 06:59 Intake Total 1450 1510 Output Total 950 1950 Balance 500 -440 Result Diagrams: 01/01/19 06:39 01/01/19 06:39 Phys Exam - Physical Examination Constitutional: NAD (resting comfortably) HEENT: moist MMs Neck: supple Respiratory: no wheezing, no rales, no rhonchi, clear to auscultation bilateral Cardiovascular: RRR, no significant murmur, no rub Gastrointestinal: soft, non-tender, no distention, positive bowel sounds Musculoskeletal: no edema, pulses present Neurological: non-focal Deviation from normal: A/O x1, baseline mentation Deviation from normal: L PICC in place, decubitus ulcer with dressing clean and dry Dx/Plan (1) SIRS without infection or organ dysfunction Code(s): R65.10 - SIRS OF NON-INFECTIOUS ORIGIN W/O ACUTE ORGAN DYSFUNCTION Status: Acute (2) Systolic heart failure Code(s): I50.20 - UNSPECIFIED SYSTOLIC (CONGESTIVE) HEART FAILURE Status: Chronic (3) GUCCI (acute kidney injury) Code(s): N17.9 - ACUTE KIDNEY FAILURE, UNSPECIFIED Status: Acute (4) Decubitus ulcer of left buttock, stage 4 Code(s): L89.324 - PRESSURE ULCER OF LEFT BUTTOCK, STAGE 4 Status: Acute (5) Bacterial endocarditis Code(s): I33.0 - ACUTE AND SUBACUTE INFECTIVE ENDOCARDITIS Status: Acute - Plan Plan: 58 y/o AAF [facility] resident with intellectual disability admitted to Medical for treatment and evaluation of SIRs without a source of infection, found to have bacterial endocarditis. # Sepsis 2/2 Bacterial Endocarditis - Tmax 102 F in ED, tachy to 119, BP 83/56. Resolved. Now VSS, stable tachy to 100s, afebrile >48hours on abx - On Vanc (Day 7). s/p Rocephin x2d and Zosyn x3d - BCx NGTD x2 sets - CXR no acute CPP on admission, repeat CXR unchanged - Spoke with PCP - h/o IV drug abuse and chronic alcoholism - TTE - difficult study 2/2 body habitus, PERLA EF 55-60%, mitrial valve mass suggestive of endocarditis - Will need 6 weeks of iv vanc of 1.75g daily with vanc troughs q3d with BMP. End date 02/08/19. Left Picc line place - will need PERLA post-treatment to evaluation mitral valve and ID and Cards f/u. - Medically stable and improved, CM assistance [facility] to [facility] # Decubitus Ulcer Stage 4 of left buttocks, healing - Left hip x-ray: no osseous abnormality. - Unable to obtain MRI, low suspicion for osteomyelitis as endocarditis found on PERLA - Wound care - 0.3cm depth with epithelium at base, appears non-infected, apprec assistance #Hypokalemia, resolved - K 2.9 -> 3.5. Mg 1.9 - Increase KCl dose to 40meq daily. Will need cont monitoring as OP. #UTI, treated - UCx at [place] proteus <10,000CFU and alpha-strep, susceptible to rocephin - now s/p 3 days rocephin and 4 days zosyn. Repeat UCx NGTD # HFpEF - BNP <10 - Cont home lasix dose, holding IVF - Holding BP medications 2/2 stable BP, cont to monitor. Restarted spironolactone - monitor UOP and fluid status - Echo from 2016 EF 25-30%, PERLA 12/30 EF 55-60% #Lung nodules, likely endocarditis seeding - Dr. Ram, pulm, consulted, likely bacterial endocarditis, will cont to follow - TTE poor study 2/2 habitus, PERLA bacterial endocarditis - will need repeat CT as outpatient after completion of abx course to reevaluate # Elevated DDimer - D-Dimer 1.06 - CTA negative for PE, however demonstrated multiple lung nodules # GUCCI, resolved - Cr 2.36 -> 0.87 - Cont home lasix, monitor #History of IV drug abuse and chronic alcoholism - LFTs WNL, history per PCP - HIV, RPR, and Hep panel negative # Hx of HTN - initially hypotensive on presentation, currently stable. Cortisol 25. Restarted Spironolactone. - Hold other BP medications at this time and restart when appropriate # H/o Intellectual disability - A/O x1, report this is baseline per MPOA and PCP - PT/OT to eval and tx #Anemia of chronic disease - Hb 10, stable - Ferritin 12.8, TIBC 218, Iron 45, B12 674, Folate 8 Code Status: DNR - spoke with Belle, aunt who is MPOA, and obtained code status after thorough discussion of code status options DVT ppx: Lovenox Diet: HH IVF: SL Dispo: Stable, admitted to Medical for evaluation and treatment of SIRs without a known source of infection. Found to have bacterial endocarditis. Clinical status improved. VSS. PICC line obtained. CM assistance for [facility] to [facility]. Will need 6 weeks IV Vanc.
[2019-01-01] MEDS: Calcium Carbonate + Vit D 1 TAB PO SCH ×2 (08:23→20:00)
[2019-01-01] MEDS: Simethicone Chewable 80 MG TAB PO SCH (08:23)
[2019-01-01] MEDS: Potassium Chloride 20 MEQ TAB PO SCH (08:23)
[2019-01-01] MEDS: Divalproex Sodium 125 mg Sprinkle Capsule PO SCH ×3 (08:23→20:00)
[2019-01-01] MEDS: Famotidine 20 MG TAB PO SCH (08:23)
[2019-01-01] MEDS: Ferrous Gluconate 324 MG TAB PO SCH ×2 (08:23→20:00)
[2019-01-01] MEDS: Multivitamin W/ Minerals 1 TAB PO SCH (08:23)
[2019-01-01] MEDS: Aspirin 325 mg Enteric Coated Tablet PO SCH (08:23)
[2019-01-01] MEDS: Furosemide 80 MG TAB PO SCH ×2 (08:24→14:57)
[2019-01-01] MEDS: Enoxaparin Sodium 40 MG/0.4 ML SYRINGE SC SCH (08:24)
[2019-01-01] MEDS: Spironolactone 25 MG TAB PO SCH (09:58)
--- NOTE | 2019-01-01 10:04 | CON ---
DATE OF CONSULTATION: ADDENDUM: Please see note from Dr. Arevalo, for which I agree. The patient was seen, evaluated, and discussed with the patient by bedside. Basically, a 58-year-old who came in with fever and sepsis. Eventually, a PERLA showed bacterial endocarditis and on vancomycin, maybe discontinuing the Rocephin. Unfortunately, we really do not have a source as cultures did not grow out anything. The patient sounds like intellectually disabled and has a power of state attorney. Eventually, she will go back to a residential, but right now working on getting a PICC line for long-term IV antibiotics. Job ID: [id number]
--- NOTE | 2019-01-01 12:50 | PRG ---
DATE OF SERVICE: 01/01/2019 Ms. Swift was recently found to have mitral valve endocarditis. She is currently on broad-spectrum antibiotics. Her blood cultures are so far negative, but she did have a demonstrable vegetation on a PERLA. Job ID: [id number]
[2019-01-01] MEDS: Vancomycin HCl 1.75 GM in Sodium Chloride 0.9% 500 ML IVPB SCH (16:57)
[2019-01-01] MEDS: Mirtazapine 30 MG TAB PO SCH (20:00)
[2019-01-01] MEDS: Atorvastatin Calcium 20 MG TAB PO SCH (20:00)
[2019-01-02 05:57] LABS: ALT (SGPT) 24 U/L (8-55); AST (SGOT) 24 U/L (5-34); Albumin 3.1 g/dL (3.5-5.0); Alkaline Phosphatase 84 U/L (40-110); Anion Gap 12 mmol/L (10-20); BUN (Urea Nitrogen) 24 mg/dL (9.8-20.1); Bilirubin, Total 0.2 mg/dL (0.2-1.2); Calc. Creatinine Clearance 111 mL/min (70-130); Calcium 9.1 mg/dL (7.8-10.44); Carbon Dioxide 31 mmol/L (22-29); Chloride 100 mmol/L (98-107); Estimated GFR-MDRD 85; Globulin 3.7 g/dL (2.4-3.5); Glucose 166 mg/dL (70-105); Potassium 3.8 mmol/L (3.5-5.1); Protein, Total 6.8 g/dL (6.0-8.3); Sodium 139 mmol/L (136-145)
[2019-01-02 06:25] LABS: Band 15 % (5-11); Eosinophils 2 % (0-10); Lymphocytes 17 % (21-51); MDiff Complete? YES; Mean Corpuscular HGB CONC 30.2 g/dL (32.0-36.0); Mean Corpuscular Volume 82.9 fL (78.0-98.0); Mean Platelet Volume 7.1 fL (7.4-10.4); Monocytes 5 % (0-10); Neutrophil 61 % (42-75); Platelet Count 357 thou/uL (130-400); Red Blood Cell (RBC) Count 3.99 mill/uL (4.20-5.40); White Blood Cell (WBC) Count 8.3 thou/uL (4.8-10.8)
--- NOTE | 2019-01-02 07:22 | PDOC.FM ---
- Subjective Subjective: Doing well this morning. No acute events overnight. Resting comfortably. Baseline mentation. Denies any fever/chills, n/v, CP, SOB. Decreased appetite but tolerating PO. Stable for [facility] to [facility] today. - Objective MAR Reviewed: Yes Vital Signs & Weight: Vital Signs (12 hours) Temp Pulse Resp BP Pulse Ox 01/01/19 20:00 97.9 F 98 19 123/79 99 Weight Admit Weight 95.3 kg Weight 95.3 kg I&O: 01/01/19 01/02/19 01/03/19 06:59 06:59 06:59 Intake Total 1510 1680 Output Total 1950 1200 Balance -440 480 Result Diagrams: 01/02/19 04:58 01/02/19 04:58 Phys Exam - Physical Examination Constitutional: NAD (resting comfortably) HEENT: moist MMs Neck: supple Respiratory: no wheezing, no rales, no rhonchi, clear to auscultation bilateral Cardiovascular: RRR, no significant murmur, no rub Gastrointestinal: soft, non-tender, no distention, positive bowel sounds Musculoskeletal: no edema Neurological: non-focal Deviation from normal: A/O x 1 at baseline Dx/Plan (1) SIRS without infection or organ dysfunction Code(s): R65.10 - SIRS OF NON-INFECTIOUS ORIGIN W/O ACUTE ORGAN DYSFUNCTION Status: Acute (2) Systolic heart failure Code(s): I50.20 - UNSPECIFIED SYSTOLIC (CONGESTIVE) HEART FAILURE Status: Chronic (3) GUCCI (acute kidney injury) Code(s): N17.9 - ACUTE KIDNEY FAILURE, UNSPECIFIED Status: Acute (4) Decubitus ulcer of left buttock, stage 4 Code(s): L89.324 - PRESSURE ULCER OF LEFT BUTTOCK, STAGE 4 Status: Acute (5) Bacterial endocarditis Code(s): I33.0 - ACUTE AND SUBACUTE INFECTIVE ENDOCARDITIS Status: Acute - Plan Plan: 58 [facility]/o AAF [facility] resident with intellectual disability admitted to Medical for treatment and evaluation of SIRs without a source of infection, found to have bacterial endocarditis. # Sepsis 2/2 Bacterial Endocarditis - Tmax 102 F in ED, tachy to 119, BP 83/56. Resolved. Now VSS, stable tachy to 100s, afebrile >48hours on abx - On Vanc (Day 8). s/p Rocephin x2d and Zosyn x3d - BCx NGTD x2 sets - CXR no acute CPP x2 - Spoke with PCP - h/o IV drug abuse and chronic alcoholism - PERLA EF 55-60%, mitrial valve endocarditis - Will need 6 weeks of iv vanc of 1.75g daily with vanc troughs q3d with BMP. End date 02/08/19. Left Picc line place - will need PERLA post-treatment to evaluation mitral valve and ID and Cards f/u. - Medically stable and improved, assistance for placement back to [facility] # Decubitus Ulcer Stage 4 of left buttocks, healing - Left hip x-ray: no osseous abnormality. - Unable to obtain MRI, low suspicion for osteomyelitis as endocarditis found on PERLA - Wound care - 0.3cm depth with epithelium at base, appears non-infected, apprec assistance #Hypokalemia, resolved - K 2.9 -> 3.8. Mg 1.9 - Increase KCl dose to 40meq daily. Will need cont monitoring as OP especially with restart of NESSA and Aldactone #UTI, treated - UCx at [place] proteus <10,000CFU and alpha-strep, susceptible to rocephin - now s/p 3 days rocephin and 4 days zosyn. Repeat UCx NGTD # HFpEF - BNP <10, no s/s of volume overload - Cont home lasix dose, holding IVF - Restarted spirinolactone and lisinopril - monitor UOP and fluid status - Echo from 2016 EF 25-30%, PERLA 12/30 EF 55-60% #Lung nodules, likely endocarditis seeding - Dr. Ram, pulm, consulted, likely bacterial endocarditis - TTE poor study 2/2 habitus, PERLA bacterial endocarditis - will need repeat CT as outpatient after completion of abx course to reevaluate # Elevated DDimer - 1.06. CTA negative for PE, however demonstrated multiple lung nodules # GUCCI, resolved - Cr 2.36 -> 0.84. Cont home lasix, monitor #History of IV drug abuse and chronic alcoholism - LFTs WNL, history per PCP. HIV, RPR, and Hep panel negative # Hx of HTN - initially hypotensive on presentation, currently stable. Cortisol 25. Restarted Spironolactone and Lisinopril. - Holding Coreg, will restart when tolerated and at discharge # H/o Intellectual disability - A/O x1, report this is baseline per MPOA and PCP #Anemia of chronic disease - Hb 10, stable. Ferritin 12.8, TIBC 218, Iron 45, B12 674, Folate 8 Code Status: DNR - spoke with Belle, aunt who is MPOA, and obtained code status after thorough discussion of code status options DVT ppx: Lovenox Diet: HH IVF: SL Dispo: Stable, admitted to Medical for evaluation and treatment of SIRs without a known source of infection. Found to have bacterial endocarditis. Clinical status improved. VSS. Weaned to RA. PICC line obtained. CM assistance for [facility] to [facility]. Will need 6 weeks IV Vanc.
[2019-01-02 08:01] VITALS: TEMP 98.7
[2019-01-02] MEDS: Potassium Chloride 20 MEQ TAB PO SCH (08:58)
[2019-01-02] MEDS: Divalproex Sodium 125 mg Sprinkle Capsule PO SCH (08:58)
[2019-01-02] MEDS: Calcium Carbonate + Vit D 1 TAB PO SCH (09:00)
[2019-01-02] MEDS ORDERED: Lisinopril 2.5 MG TAB PO SCH (09:00)
[2019-01-02] MEDS: Ferrous Gluconate 324 MG TAB PO SCH (09:01)
[2019-01-02] MEDS: Aspirin 325 mg Enteric Coated Tablet PO SCH (09:01)
[2019-01-02] MEDS: Enoxaparin Sodium 40 MG/0.4 ML SYRINGE SC SCH (09:05)
[2019-01-02] MEDS: Famotidine 20 MG TAB PO SCH (09:05)
[2019-01-02] MEDS: Multivitamin W/ Minerals 1 TAB PO SCH (09:05)
[2019-01-02] MEDS: Simethicone Chewable 80 MG TAB PO SCH (09:06)
[2019-01-02 09:08] VITALS: BP 103/68
[2019-01-02] MEDS: Spironolactone 25 MG TAB PO SCH (09:14)
[2019-01-02] MEDS: Furosemide 80 MG TAB PO SCH (09:16)
--- NOTE | 2019-01-02 11:18 | PRG ---
DATE OF SERVICE: 01/02/2019 Ms. Swift is to continue at least four weeks of IV vancomycin for her bacterial endocarditis. She will follow up with Dr. Parr. She is ready for discharge this afternoon. Job ID: [id number]
--- NOTE | 2019-01-03 09:09 | DIS ---
DATE OF ADMISSION: 12/25/2018 DATE OF DISCHARGE: 01/02/2019 RESIDENT: Joel Arevalo MD ADMITTING ATTENDING: Mariann Lindsey MD DISCHARGE ATTENDING: Jack Rowan MD CONSULTS: 1. Dr. Ram, Pulmonology. 2. Dr. Yepez, Cardiology. PROCEDURES: 1. Hip x-ray on 12/25/2018, demonstrating no acute osseous abnormality appreciated. If concern for osteomyelitis, MRI would be more sensitive study. 2. CTA chest demonstrating suboptimal pulmonary artery opacification. No evidence of proximal pulmonary embolus to the segmental level. Mediastinal and hilar adenopathy. Numerous right lung pulmonary nodules suggesting metastatic lung disease. Small bilateral effusions and bibasilar atelectasis. 3. Chest x-ray on 12/27/2018, demonstrated no focal infiltrate or interval change. 4. Echocardiogram on 12/27/2018, demonstrating a very difficult study with poor endocardial definition. Unable to fully assess. 5. Transesophageal echocardiogram on 12/29/2018, demonstrating a normal systolic function with EF of 55% to 60%. Intact intra-atrial septum. Mild mitral regurgitation. There is a circular mass attached to the chordae tendinae of the posterior mitral valve leaflets suggestive of mitral valve endocarditis, this is not appearing valve functionality. 6. PICC line placement on 12/30/2018, to the left upper extremity. PRIMARY DIAGNOSES: 1. 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 2. Decubitus ulcer stage IV at the left buttocks, healing. 3. Hypokalemia, resolved. 4. Urinary tract infection, treated. SECONDARY DIAGNOSES: 1. Heart failure with preserved ejection fraction. 2. Lung nodules, likely endocarditis seeding. 3. Elevated D-dimer, negative for pulmonary embolism. 4. Acute kidney injury, resolved. 5. History of IV drug abuse and chronic alcoholism. 6. History of hypertension. 7. History of intellectual disability, A and O x1 at baseline. 8. Anemia of chronic disease. DISCHARGE MEDICATIONS: 1. Vancomycin 1.75 g IV piggyback daily, to discontinue on 02/08/2019. She will need vancomycin trough and BMP q.3 days. 2. Tylenol 650 mg p.o. q.4 hours p.r.n. 3. Guaifenesin DM 10 mL p.o. q.6 hours p.r.n. 4. Atorvastatin 20 mg p.o. at bedtime. 5. Zantac 150 mg p.o. b.i.d. 6. Furosemide 80 mg p.o. b.i.d. 7. Carvedilol 3.125 mg p.o. b.i.d. 8. Calcium and vitamin D supplement 1 tablet p.o. b.i.d. 9. Spironolactone 12.5 mg p.o. daily. 10. Sennokot BID prn 11. Calcium carbonate 400 mg p.o. q.4 hours p.r.n. 12. Ferrous gluconate 324 mg p.o. b.i.d. 13. Simethicone 80 mg p.o. q.a.m. 14. Potassium chloride 20 mEq p.o. q.a.m. with meals. 15. Remeron 30 mg p.o. at bedtime. 16. Multivitamin one tablet by mouth daily. 17. Lisinopril 2.5 mg p.o. daily. 18. Divalproex sodium 125 mg p.o. t.i.d. 19. Aspirin 325 mg p.o. daily. DISCONTINUED MEDICATIONS: Bactrim Double Strength one tablet p.o. b.i.d. SIGNIFICANT LABORATORY DATA: Initial white blood cell count 10.5, hemoglobin 11.6, platelets 162. ESR 25. Procalcitonin 0.38, cortisol 26. Potassium of 2.9, that trended to 3.8 at discharge. Iron 45, TIBC 218, ferritin 128.73, B12 of 674, folate 8. Urine culture on 12/25/2018, demonstrating less than 10,000 colony-forming units of Proteus mirabilis as well as alpha strep, not strep pneumoniae, susceptible to Zosyn and Rocephin. Blood cultures x4, no growth final. HISTORY OF PRESENT ILLNESS AND HOSPITAL COURSE: The patient is a 58-year-old female, [place] [facility], who was sent to the ER in [place] because of fever and vomiting episode. The patient was asymptomatic. She was at her baseline mentation. The patient initially had a fever of 102 and met SIRS criteria without a source. She does have a stage IV decubitus ulcer over left buttocks. She was started on vancomycin and Zosyn. She is admitted for further evaluation and management. She was started on maintenance IV fluids. She continued to be asymptomatic throughout her hospital stay. Initial concern was for urinary tract infection and osteomyelitis. The patient was sent for MRI, however, was too large to have an MRI. In the meantime, a urine culture did return positive and she was continued on antibiotics; however, the patient continued to spike fevers. PCP was contacted, who stated the patient had a remote history of IV drug use as well as chronic alcoholism. Also based on CT of the chest, Pulmonary was consulted and consideration for biopsy of lung nodules was considered; however, Pulmonology recommended a workup for bacterial endocarditis, especially with significant past history of IV drug abuse. Cardiology was then consulted for assistance with PERLA after an unsuccessful TTE. PERLA demonstrated a vegetation of the mitral valve consistent with endocarditis. The patient was continued on vancomycin. Her Zosyn was initially transitioned to Rocephin and then discontinued after appropriate treatment of her UTI. The patient did have a PICC line placed for IV access for continued vancomycin. The case was discussed with Pharmacy who recommended continuation of the 1.75 vancomycin daily with vancomycin troughs q.3 days as well as a BMP. The patient will need to follow up with Dr. Parr as an outpatient for further recommendations. Throughout her hospitalization, she also had low blood pressures, then remained stable at around 110s/70s. Home blood pressure medications were slowly restarted; however, the patient continued to have episodes of hypokalemia requiring replacement. This is likely due to her Lasix. The patient will need continued monitoring as an outpatient. The patient appeared euvolemic on exam at the time of discharge. The patient will also need followup with Cardiology for repeat echocardiogram after completion of antibiotic regimen. The patient will also need repeat CTA to evaluate lung nodules with possible biopsy in the future if there is no resolution. As far as the patient's decubitus ulcer, Wound Care was consulted, who probed the wound and found it to be 0.3 in depth. Dressings were applied and changed appropriately. There was a low suspicion for osteomyelitis after discovery of the endocarditis, thus appropriate wound care will need to be continued. The patient was found to be anemic after further studies and this was determined to be anemia of chronic disease. For her chronic medical conditions, home medications were restarted. Throughout the hospitalization, the patient's [place] [facility] was contacted frequently and given updates and provided consent for procedures. At the time of discharge, the patient was stable and at her baseline. Tolerating p.o. well. Voiding without difficulty. Denied any symptoms of fevers, chills, chest pain, or shortness of breath. The discharge plan was discussed with the aunt who voiced agreement understanding of discharge plan with appropriate followup. The patient was eager to get back to the [facility]. All questions were answered appropriately. Dr. Yao was updated on the patient. DISPOSITION: Stable. DISCHARGE INSTRUCTIONS: 1. Location: [facility]. 2. Diet: Regular as tolerated. 3. Activity: As tolerated. 4. Followup: The patient will need to follow up with her primary care physician within 1 week. The patient will need to follow up with Dr. Parr within 1 week. The patient will need to follow up with Dr. Yepez for repeat echocardiogram after completion of antibiotic therapy. Pt will need repeat CT chest w and w/o 4-6 weeks post antibiotic completion. Job ID: [id number] [facility]
== END 2019-01-02 14:42 | DRG 871 ==
LOC: ERS 18:23 → T4-B 19:30 → OBSVTOIN 19:30
PROVIDERS: ADMIT Family Medicine; ATTEND Family Medicine
PROC: B24BZZ4 Ultrasonography of Heart with Aorta, Transesophageal (ICD-10-PCS; 2018-12-29)
PROC: 02HV33Z Insertion of Infusion Device into Superior Vena Cava, Percutaneous Approach (ICD-10-PCS; principal; 2018-12-30)
PROC: B548ZZA Ultrasonography of Superior Vena Cava, Guidance (ICD-10-PCS; 2018-12-30)
DX: A41.9 Sepsis, unspecified organism (principal); L89.324 Pressure ulcer of left buttock, stage 4; I33.0 Acute and subacute infective endocarditis; N17.9 Acute kidney failure, unspecified; I13.0 Hypertensive heart and chronic kidney disease with heart failure and stage 1 through stage 4 chronic kidney disease, or unspecified chronic kidney disease; I50.42 Chronic combined systolic (congestive) and diastolic (congestive) heart failure; Z66 Do not resuscitate; K21.9 Gastro-esophageal reflux disease without esophagitis; E78.5 Hyperlipidemia, unspecified; F32.9 Major depressive disorder, single episode, unspecified; E87.6 Hypokalemia; N18.9 Chronic kidney disease, unspecified; D63.1 Anemia in chronic kidney disease; F79 Unspecified intellectual disabilities; D50.9 Iron deficiency anemia, unspecified; F10.20 Alcohol dependence, uncomplicated; Z53.8 Procedure and treatment not carried out for other reasons; Z79.82 Long term (current) use of aspirin; Z79.899 Other long term (current) drug therapy
CPT/HCPCS: 36415; 36416; 36569; 71045; 71275; 80053; 80074; 80202; 81001; 82533; 82553; 82607; 82728; 82746; 83540; 83550; 83735; 84145; 84484; 85025; 85652; 86780; 87040; 87086; 87389; 93005; 93010; 93306; 93312; C1751; J0696; J1644; J1650; J1940; J2001; J2060; J2543; J2704; J3370; J3490; J7050; Q9966

== ENCOUNTER 2019-03-27 13:40 | Emergency (ER) | payer OTHER ==
[2019-03-27 14:25] LABS: #Eosinphils 0.2 thou/uL (0.0-0.7); #Lymphocytes 1.2 thou/uL (1.20-3.40); #Monocytes 0.4 thou/uL (0.11-0.59); #Neutrophils 6.1 thou/uL (1.40-6.50); %Basophils 0.4 % (0.0-1.0); %Eosinophils 2.3 % (0.0-10.0); %Lymphocytes 15.1 % (21.0-51.0); %Neutrophils 77.3 % (42.0-75.0); Hemoglobin 12.1 g/dL (12.0-16.0); Mean Corpuscular HGB CONC 30.3 g/dL (32.0-36.0); Mean Corpuscular Hemoglobin 25.7 pg (27.0-31.0); Mean Corpuscular Volume 84.9 fL (78.0-98.0); Mean Platelet Volume 7.9 fL (7.4-10.4); Platelet Count 293 thou/uL (130-400); RBC Distribution Width 14.2 % (11.5-14.5); White Blood Cell (WBC) Count 7.9 thou/uL (4.8-10.8)
--- NOTE | 2019-03-27 14:50 | RAD ---
FRONTAL RADIOGRAPH CHEST PORTABLE UPRIGHT: Date: 03/27/2019 COMPARISON: 12/27/18. HISTORY: Chest pain. FINDINGS: Stable heart and mediastinal contours. No pneumothorax is seen. Hazy increased density is seen in the medial left base which may signify infiltrate or volume loss. There is a hazy area of increased density within the lateral aspect of the right lung base which appe ars new when compared to the prior examination. This may represent a focal area of air space disease or an underlying pulmonary nodule. Further assessment with PA and lateral imaging of the chest advis ed. IMPRESSION: Findings suggesting a new focal area of increased density in the lateral right base. Increased densit y also noted in the medial left base. Further assessment with PA and lateral imaging of the chest adv ised. Findings are worrisome for a pulmonary nodule/mass within the right lung base laterally. CODE T. POS: AIME
[2019-03-27 14:58] LABS: ALT (SGPT) 14 U/L (8-55); AST (SGOT) 15 U/L (5-34); Albumin 4.1 g/dL (3.5-5.0); Alkaline Phosphatase 120 U/L (40-110); Anion Gap 14 mmol/L (10-20); BUN (Urea Nitrogen) 16 mg/dL (9.8-20.1); Bilirubin, Total 0.4 mg/dL (0.2-1.2); Calc. Creatinine Clearance 0 mL/min (70-130); Calcium 8.8 mg/dL (7.8-10.44); Carbon Dioxide 22 mmol/L (22-29); Chloride 111 mmol/L (98-107); Estimated GFR-MDRD 88; Globulin 3.1 g/dL (2.4-3.5); Glucose 101 mg/dL (70-105); Potassium 4.8 mmol/L (3.5-5.1); Protein, Total 7.2 g/dL (6.0-8.3); Sodium 142 mmol/L (136-145)
== END 2019-03-27 18:15 ==
LOC: ERS 13:40
DX: R07.9 Chest pain, unspecified (principal); R11.2 Nausea with vomiting, unspecified; I11.0 Hypertensive heart disease with heart failure; I50.9 Heart failure, unspecified; K21.9 Gastro-esophageal reflux disease without esophagitis; D50.9 Iron deficiency anemia, unspecified; E78.5 Hyperlipidemia, unspecified; F32.9 Major depressive disorder, single episode, unspecified; Z79.82 Long term (current) use of aspirin; Z79.899 Other long term (current) drug therapy; Z86.718 Personal history of other venous thrombosis and embolism
CPT/HCPCS: 36415; 71045; 80053; 84484; 85025; 93005

== ENCOUNTER 2019-04-01 19:37 | Inpatient (IN) | payer OTHER ==
[2019-04-01] MEDS ORDERED: Aspirin Chewable 81 MG TAB ONE (21:35)
[2019-04-01] MEDS ORDERED: Nitroglycerin 2% Ointment 1 INCH/1 GM Packet ONE (21:35)
--- NOTE | 2019-04-01 23:26 | PDOC.FPRHP ---
- History of Present Illness Chief Complaint: chest pain History of Present Illness: Patient is a 58F with PMHx of MR, CHF, GERD, HLD, HTN, iron defficiency anemia, and last hospitalization for endocarditis that was brought in by the halfway for chest pain. Due to patient's mental status, much of her hx is difficult to attain. When asked about her chest pain, she complained more about SOB. She states that she becomes SOB when she stands up to walk, and it is difficult for her to lay down at night because of her SOB. She said this has been going on for several days. She also endorses some abdominal pain. She denies n/d, reports she had one bout of emesis yesterday. She denies dysuria, hematuria, hematochezia. A&O x 1. PCP: [facility] ED Course: nitrobid, 324mg asa - Allergies/Adverse Reactions Allergies Allergy/AdvReac Type Severity Reaction Status Date / Time No Known Allergies Allergy Verified 04/02/19 02:57 - Home Medications Medication Instructions Recorded Confirmed Type Acetaminophen [Tylenol Regular 650 mg PO Q4HR PRN 11/29/16 12/25/18 History Strength] Atorvastatin Calcium [Lipitor] 20 mg PO HS 11/29/16 12/25/18 History Calcium Carbonate/Vitamin D3 1 tab PO BID 11/29/16 12/25/18 History [Calcium 600 + Vitamin D 400] Carvedilol [Coreg] 3.125 mg PO BID 11/29/16 12/25/18 History Furosemide 80 mg PO 11/29/16 12/25/18 History Guaifenesin DM 100-10 [Robitussin 10 ml PO Q6H PRN 11/29/16 12/25/18 History DM] Spironolactone 12.5 mg PO DAILY 11/29/16 12/25/18 History Zantac 150 mg PO BID 11/29/16 12/25/18 History Aspirin [Aspirin EC] 325 mg PO DAILY 12/25/18 12/25/18 History Calcium Carbonate 400 mg PO Q4H PRN 12/25/18 12/25/18 History Divalproex Sodium [Depakote 125 mg PO TID 12/25/18 12/25/18 History Sprinkle] Ferrous Gluconate 324 mg PO BID 12/25/18 12/25/18 History Lisinopril 2.5 mg PO DAILY 12/25/18 12/25/18 History Mirtazapine [Remeron] 30 mg PO HS 12/25/18 12/25/18 History Multivit with Minerals No.55 1 each PO DAILY 12/25/18 12/25/18 History [Centrum Flavor Burst Adult] Potassium Chloride 20 meq PO QAM-WM 12/25/18 12/25/18 History Sennosides [Senokot] 1 tab PO BID PRN 12/25/18 12/25/18 History Simethicone 80 mg PO QAM 12/25/18 12/25/18 History Vancomycin HCl 1.75 gm IVPB 1700 40 Days #40 vial 01/02/19 Rx - History PMHx: MR, CHF, GERD, HLD, HTN, iron defficiency anemia, and last hospitalization for endocarditis PSHx: unknown FHx:unknown Social:lives in [place] in [place]; PCP Dr. Yao; family rarely if ever comes to visit patient and due to patient's mental status little is known about her history - Review of Systems General: denies: fever/chills, weight/appetite/sleep changes Eyes: denies: eye pain, vision changes ENT: denies: nasal congestion, rhinorrhea Respiratory: reports: shortness of breath. denies: cough Cardiovascular: denies: palpitation, edema Gastrointestinal: reports: vomiting, abdominal pain. denies: nausea, diarrhea Genitourinary: denies: dysuria, polyuria Skin: denies: rashes, lesions Musculoskeletal: denies: tenderness, stiffness Neurological: denies: syncope, seizure Psychological: denies: anxiety, depression - Vital signs BP: [137/95] HR: [115] RR: [25] Tmax: [98.6F] Pox: [97]% on [RA] Wt: [90.7kg] - Physical Exam Constitutional: NAD, other (A&Ox1) HEENT: normocephalic and atraumatic, MMM, other (poor dentition) Neck: supple, FROM Chest: no-tender to palpation, no lesions Heart: RRR, normal S1/S2 Lungs: other (decreased air movement bibasilar lobes, L>R) Abdomen: soft, bowel sounds present, other (slightly ttp) Musculoskeletal: normal structure, normal tone Neurological: no focal deficit Skin: no rash/lesions, good turgor Heme/Lymphatic: no unusual bruising or bleeding, no purpura Psychiatric: other (poor judgment and insight) FMR H&P: Results - Labs Result Diagrams: 04/02/19 03:04 04/02/19 03:04 Lab results: B-Natriuretic Peptide 526.9 pg/mL (0-100) H 04/01/19 20:50 - Radiology Interpretation Chest x-ray Status: report reviewed by me (cardiomegaly) CT scan - chest Status: report reviewed by me (pericardial effusion, bilateral pleural effusions , right middle lobe pulmonary nodules, prominent mediastinal lymph nodes) FMR H&P: A/P - Problem List (1) Acute on chronic diastolic CHF (congestive heart failure) Current Visit: Yes Status: Acute Code(s): I50.33 - ACUTE ON CHRONIC DIASTOLIC (CONGESTIVE) HEART FAILURE (2) Intellectual disability Current Visit: Yes Status: Chronic Code(s): F79 - UNSPECIFIED INTELLECTUAL DISABILITIES (3) GERD (gastroesophageal reflux disease) Current Visit: Yes Status: Chronic Code(s): K21.9 - GASTRO-ESOPHAGEAL REFLUX DISEASE WITHOUT ESOPHAGITIS (4) HTN (hypertension) Current Visit: Yes Status: Chronic Code(s): I10 - ESSENTIAL (PRIMARY) HYPERTENSION (5) HLD (hyperlipidemia) Current Visit: Yes Status: Chronic Code(s): E78.5 - HYPERLIPIDEMIA, UNSPECIFIED (6) Microcytic anemia Current Visit: No Status: Chronic Code(s): D50.9 - IRON DEFICIENCY ANEMIA, UNSPECIFIED - Plan Patient is a 58F with PMHx of MR, CHF, GERD, HLD, HTN, iron deficiency anemia, and last hospitalization for endocarditis that is admitted for acute on chronic CHF exacerbation #Acute on chronic CHF exacerbation -patient is fluid overloaded; decreased breath sounds bibasilar lobes -CT shows pericardial effusion and bilateral pleural effusions -bedside US confirmed pleural effusions; small pericardial effusion noted -BNP 526.9 -trop <0.01 -last PERLA 12/23 showed EF 55-60%; last hospitalization patient had endocarditis on mitral valve; will repeat echo during this admission -on [place] records it does not appear that the patient has been taking PO lasix, though 80mg PO lasix was on last hospitalization dc summary -will add 80mg lasix IV BID at this time and monitor urine output; will adjust accordingly -daily weights -strict I&Os -patient not requiring oxygen at this time, breathing comfortably in bed #GERD -continue home meds #HLD -continue home meds #iron deficiency anemia -continue home meds #HTN -continue home meds DVT ppx: lovenox Dispo: inpatient for diuresis for acute on chronic CHF exacerbation. Will continue to monitor urine output and respiratory status and adjust medications accordingly. Echo pending Code: Full PCP: [facility] FMR H&P: Upper Level - Pertinent history 58 yo F with a PMhx of HFpEF, recent endocarditis, and mental retardation here with complaint of CP from her NH. CT taken in the ER was significant for b/l pleural effusions and pericardial effusion. She her O2 sat was WNL as were her other vitals. Generally, history was difficult to obtain as she can only communicate very basic information. Significant lab abnormalities include a BNP of 526 and a UA with positive nitrites, pos LE, 3+ nica, and 21-50 WBC. PMHx HFpEF MR HTN HLD Surgical hx None Social Hx Per previous documentation - past etoh and IVDU FHx is unknown - Pertinent findings See network intern note for full ROS, PE, vitals, and labs ROS is unreliable due to mental capacity PE General A&O x1. No acute distress HEENT NCAT CV RRR, no murmur Resp minimal breath sounds in bases b/l. Otherwise CTA Abd soft, non-distended, non tender Extremities no edema, equal pedal pulses Neuro no focal deficits - Plan Date/Time: 04/01/19 9211 IValdo DO, have evaluated this patient and agree with findings/plan as outlined by network intern resident. Pertinent changes/additions are listed here. 1.CHF exacerbation -Admit for monitoring, not currently requiring O2 -Start IV Lasix at 80mg BID -Strict I/O -Fluid restrict to 2500 mL/day 2.Bilateral pleural effusion -No concern for para pneumonic effusion, therefore will not move to thoracentesis at this time -This is most likely related to overload. Will repeat CXR tomorrow 3.Pericardial effusion -Very small and asymptomatic -TTE in am See network intern portion for management of chronic disease PPx SCD, lovenox Diet HH Code Full Dispo: pt is currently in stable and in fair condition Addendum - Attending - Attending Attestation Date/Time: 04/02/19 3889 I personally evaluated the patient and discussed the management with Dr. Morales and Narciso on 04/01. I agree with the History, Examination, Assessment and Plan documented above with any addition or exceptions noted below. Patient comfortable and each Doritos on my evaluation. She has bilateral pleural effusions and may have developed a complication related to her prior endocarditis. Will diurese and repeat TTE. On CT, the pericardial effusion appears relatively small.
[2019-04-01] MEDS ORDERED: Ondansetron PF 4 MG/2 ML Vial IVP PRN (23:31)
[2019-04-01] MEDS ORDERED: Acetaminophen 325 MG TAB PO PRN (23:31)
[2019-04-01] MEDS ORDERED: Ondansetron ODT 4 MG TAB SL PRN (23:31)
[2019-04-02] MEDS ORDERED: Furosemide 40 MG/4 ML VIAL ONE ×3 (00:23→06:50)
[2019-04-02] MEDS ORDERED: cefTRIAXone\\ROCEPHIN 1 GM VIAL ONE (00:23)
[2019-04-02] MEDS ORDERED: Acetaminophen 325 MG TAB PO PRN (02:55)
[2019-04-02] MEDS ORDERED: Calcium Carbonate 500 MG ChewTAB PO PRN (02:55)
[2019-04-02] MEDS ORDERED: Furosemide 100 MG/10 ML VIAL SLOW IVP SCH (02:55)
[2019-04-02 03:24] LABS: #Eosinphils 0.1 thou/uL (0.0-0.7); #Monocytes 0.4 thou/uL (0.11-0.59); %Basophils 0.3 % (0.0-1.0); %Eosinophils 2.1 % (0.0-10.0); %Lymphocytes 15.4 % (21.0-51.0); %Monocytes 5.7 % (0.0-10.0); %Neutrophils 76.5 % (42.0-75.0); Hemoglobin 11.9 g/dL (12.0-16.0); Mean Corpuscular HGB CONC 31.8 g/dL (32.0-36.0); Mean Corpuscular Hemoglobin 25.7 pg (27.0-31.0); Mean Corpuscular Volume 80.7 fL (78.0-98.0); Mean Platelet Volume 8.2 fL (7.4-10.4); Platelet Count 290 thou/uL (130-400); RBC Distribution Width 14.2 % (11.5-14.5); Red Blood Cell (RBC) Count 4.63 mill/uL (4.20-5.40); White Blood Cell (WBC) Count 6.6 thou/uL (4.8-10.8)
[2019-04-02 03:33] LABS: Anion Gap 16 mmol/L (10-20); BUN (Urea Nitrogen) 14 mg/dL (9.8-20.1); Calc. Creatinine Clearance 0 mL/min (70-130); Calcium 8.8 mg/dL (7.8-10.44); Carbon Dioxide 24 mmol/L (22-29); Chloride 108 mmol/L (98-107); Estimated GFR-MDRD Greater than 90; Glucose 129 mg/dL (70-105); Potassium 3.5 mmol/L (3.5-5.1); Sodium 144 mmol/L (136-145)
--- NOTE | 2019-04-02 06:07 | PDOC.FM ---
- Subjective Subjective: Doing well this morning. Per nurse she has filled three canisters with urine via urinary wick. Patient states that she is feeling better. - Objective MAR Reviewed: Yes Vital Signs & Weight: See picis documentation Result Diagrams: 04/02/19 03:04 04/02/19 03:04 Phys Exam - Physical Examination Constitutional: NAD HEENT: PERRLA, moist MMs, sclera anicteric Abnormal gaze Neck: no JVD, supple, full ROM Respiratory: no wheezing, no rhonchi Fine crackles in bases Cardiovascular: RRR, no significant murmur Gastrointestinal: soft, non-tender Musculoskeletal: pulses present trace edema BLE Neurological: non-focal, moves all 4 limbs Deviation from normal: Appears to be at baseline. Skin: no rash, normal turgor Dx/Plan (1) Acute on chronic diastolic CHF (congestive heart failure) Code(s): I50.33 - ACUTE ON CHRONIC DIASTOLIC (CONGESTIVE) HEART FAILURE Status : Acute (2) GERD (gastroesophageal reflux disease) Code(s): K21.9 - GASTRO-ESOPHAGEAL REFLUX DISEASE WITHOUT ESOPHAGITIS Status: Chronic (3) HLD (hyperlipidemia) Code(s): E78.5 - HYPERLIPIDEMIA, UNSPECIFIED Status: Chronic (4) HTN (hypertension) Code(s): I10 - ESSENTIAL (PRIMARY) HYPERTENSION Status: Chronic (5) Intellectual disability Code(s): F79 - UNSPECIFIED INTELLECTUAL DISABILITIES Status: Chronic (6) GUCCI (acute kidney injury) Code(s): N17.9 - ACUTE KIDNEY FAILURE, UNSPECIFIED Status: Acute - Plan Plan: Patient is a 58F with PMHx of MR, CHF, GERD, HLD, HTN, iron deficiency anemia, and last hospitalization for endocarditis that is admitted for acute on chronic CHF exacerbation Acute on chronic CHF exacerbation -patient is fluid overloaded; decreased breath sounds bibasilar lobes -CT shows pericardial effusion and bilateral pleural effusions -BNP 526.9 / Troponin <0.01 -last PERLA 12/23 showed EF 55-60%; last hospitalization patient had endocarditis on mitral valve; will repeat echo during this admission -patient was on 80mg po Lasix BID in NH prior to endocarditis, however due to IV Vancomycin effects on renal function this was discontinued. We will continue IV Lasix today and plan to restart PO lasix tomorrow with hopeful d/c. -daily weights -strict I&Os Pulmonary nodules -Stable from prior exam. Pericardial effusion / bilateral pleural effusions -Increase in size of the pericardial effusion from prior study. Will reach out to cardiology for recommendations. GERD -continue home meds HLD -continue home meds Iron deficiency anemia -continue home meds HTN -continue home meds DVT ppx: lovenox Dispo: Stable, inpatient. Code: Full PCP: [facility] Addendum - Attending - Attending Attestation Date/Time: 04/02/19 6126 I personally evaluated the patient and discussed the management with Dr. Padilla. I agree with the History, Examination, Assessment and Plan documented above with any addition or exceptions noted below. Pt has lower extremity edema. Will continue lasix for diuresis. Will touch base with pulmonology regarding pulmonary findings on CT scan.
[2019-04-02] MEDS: Furosemide 100 MG/10 ML VIAL SLOW IVP SCH ×2 (06:55→18:18)
[2019-04-02] MEDS ORDERED: Aspirin 325 MG TAB ONE (08:29)
[2019-04-02] MEDS ORDERED: Enoxaparin Sodium 30 MG/0.3 ML SYRINGE ONE (08:30)
[2019-04-02] MEDS ORDERED: Potassium Chloride 20 MEQ TAB ONE (12:40)
[2019-04-02] MEDS: Potassium Chloride 20 MEQ TAB PO SCH (17:53)
[2019-04-02] MEDS: Aspirin 325 mg Enteric Coated Tablet PO SCH (17:54)
[2019-04-02] MEDS: Carvedilol 3.125 MG TAB PO SCH ×2 (17:54→20:21)
[2019-04-02] MEDS: Calcium Carbonate + Vit D 1 TAB PO SCH ×2 (17:54→20:21)
[2019-04-02] MEDS: Divalproex Sodium 125 mg Sprinkle Capsule PO SCH ×3 (17:55→21:02)
[2019-04-02] MEDS: Enoxaparin Sodium 30 MG/0.3 ML SYRINGE SC SCH (17:55)
[2019-04-02] MEDS: Multivitamin W/ Minerals 1 TAB PO SCH (17:56)
[2019-04-02] MEDS: Ferrous Gluconate 324 MG TAB PO SCH ×2 (17:56→20:21)
[2019-04-02] MEDS: Lisinopril 2.5 MG TAB PO SCH (17:56)
[2019-04-02] MEDS: Simethicone Chewable 80 MG TAB PO SCH (17:57)
[2019-04-02] MEDS: Mirtazapine 30 MG TAB PO SCH (20:20)
[2019-04-02] MEDS: Atorvastatin Calcium 20 MG TAB PO SCH (20:21)
[2019-04-03 05:06] VITALS: BMI 33.8
[2019-04-03 05:15] LABS: Anion Gap 14 mmol/L (10-20); BUN (Urea Nitrogen) 19 mg/dL (9.8-20.1); Calc. Creatinine Clearance 81 mL/min (70-130); Calcium 9.4 mg/dL (7.8-10.44); Carbon Dioxide 30 mmol/L (22-29); Chloride 102 mmol/L (98-107); Estimated GFR-MDRD 63; Glucose 108 mg/dL (70-105); Potassium 3.7 mmol/L (3.5-5.1); Sodium 142 mmol/L (136-145)
--- NOTE | 2019-04-03 05:35 | PDOC.FM ---
- Subjective Subjective: Ms. Swift was resting comfortably this morning. She denies chest pain or shortness of breath. The nurse from yesterday informed me that there is a DNAR on file for her from previous admission. I will contact family/review documents today. - Objective MAR Reviewed: Yes Vital Signs & Weight: Vital Signs (12 hours) Temp Pulse Resp BP Pulse Ox 04/03/19 03:51 98.7 F 97 18 117/68 94 L 04/02/19 20:00 94 L 04/02/19 17:56 97 Weight Weight 89.471 kg I&O: 04/01/19 04/02/19 04/03/19 06:59 06:59 06:59 Intake Total 280 Output Total 1090 Balance -810 Result Diagrams: 04/02/19 03:04 04/03/19 04:37 Phys Exam - Physical Examination Constitutional: NAD HEENT: moist MMs, sclera anicteric Neck: no JVD, supple, full ROM Respiratory: no wheezing, no rales, no rhonchi, clear to auscultation bilateral Cardiovascular: RRR, no significant murmur, no rub Gastrointestinal: soft, non-tender, no distention Musculoskeletal: no edema, pulses present Neurological: non-focal, moves all 4 limbs Skin: no rash, normal turgor Dx/Plan (1) Acute on chronic diastolic CHF (congestive heart failure) Code(s): I50.33 - ACUTE ON CHRONIC DIASTOLIC (CONGESTIVE) HEART FAILURE Status : Acute (2) GERD (gastroesophageal reflux disease) Code(s): K21.9 - GASTRO-ESOPHAGEAL REFLUX DISEASE WITHOUT ESOPHAGITIS Status: Chronic (3) HLD (hyperlipidemia) Code(s): E78.5 - HYPERLIPIDEMIA, UNSPECIFIED Status: Chronic (4) HTN (hypertension) Code(s): I10 - ESSENTIAL (PRIMARY) HYPERTENSION Status: Chronic (5) Intellectual disability Code(s): F79 - UNSPECIFIED INTELLECTUAL DISABILITIES Status: Chronic (6) GUCCI (acute kidney injury) Code(s): N17.9 - ACUTE KIDNEY FAILURE, UNSPECIFIED Status: Acute - Plan Plan: Patient is a 58F with PMHx of MR, CHF, GERD, HLD, HTN, iron deficiency anemia, and last hospitalization for endocarditis that is admitted for acute on chronic CHF exacerbation Acute on chronic CHF exacerbation -patient is fluid overloaded; decreased breath sounds bibasilar lobes -CT shows pericardial effusion and bilateral pleural effusions -BNP 526.9 / Troponin <0.01 -last PERLA 12/23 showed EF 55-60%; last hospitalization patient had endocarditis on mitral valve; repeat echo taken, awaiting read. -restart po Lasix 80mg BID. -daily weights -strict I&Os Pulmonary nodules -Stable from prior exam. Pericardial effusion / bilateral pleural effusions -Increase in size of the pericardial effusion from prior study. -Cardiology consulted, appreciate recommendations. GERD -continue home meds HLD -continue home meds Iron deficiency anemia -continue home meds HTN -continue home meds DVT ppx: lovenox Dispo: Stable, inpatient. Code: ___. Patient was admitted as full code, however she has a DNR signed from previous hospitalizations. Will verify today. PCP: [facility] Bunchendum - Attending - Attending Attestation Date/Time: 04/03/19 6143 I personally evaluated the patient and discussed the management with Dr. Padilla. I agree with the History, Examination, Assessment and Plan documented above with any addition or exceptions noted below. Patient is feeling better. Lower extremity edema is improved with lasix. Pt has had a worsening in EF from 50% to 20-25% currently. Cardiology is being consulted. She is on beta carla and holland inhibitor.
[2019-04-03] MEDS: Multivitamin W/ Minerals 1 TAB PO SCH (09:42)
[2019-04-03] MEDS: Enoxaparin Sodium 30 MG/0.3 ML SYRINGE SC SCH (09:42)
[2019-04-03] MEDS: Furosemide 80 MG TAB PO SCH ×2 (09:43→14:59)
[2019-04-03] MEDS: Potassium Chloride 20 MEQ TAB PO SCH (09:43)
[2019-04-03] MEDS: Carvedilol 3.125 MG TAB PO SCH ×2 (09:43→22:13)
[2019-04-03] MEDS: Lisinopril 2.5 MG TAB PO SCH (09:43)
[2019-04-03] MEDS: Ferrous Gluconate 324 MG TAB PO SCH ×2 (09:44→22:13)
[2019-04-03] MEDS: Divalproex Sodium 125 mg Sprinkle Capsule PO SCH ×3 (09:44→22:13)
[2019-04-03] MEDS: Calcium Carbonate + Vit D 1 TAB PO SCH ×2 (09:44→22:13)
[2019-04-03] MEDS: Simethicone Chewable 80 MG TAB PO SCH (09:44)
[2019-04-03] MEDS: Aspirin 325 mg Enteric Coated Tablet PO SCH (09:46)
--- NOTE | 2019-04-03 20:26 | CON ---
DATE OF CONSULTATION: 04/03/2019 REASON FOR CONSULTATION: Heart failure. HISTORY OF PRESENT ILLNESS: Ms. Swift is a very pleasant 58-year-old female, who has cognitive dysfunction, who comes to the hospital for worsening shortness of breath. She has been having for the last few weeks worsening shortness of breath when moving around, having problems with breathing when lying down on her back including what appears to be PND and orthopnea. She was admitted, found to be in heart failure, clinically started diuresing. She is already doing much better. Echocardiogram was done and it showed new onset cardiomyopathy with an EF at 20% to 25%. Cardiology has been consulted for further recommendations. Currently, Ms. Swift, because of her mental conditions, is unable to give much history. She only tells me that her breathing is doing much better. PAST MEDICAL HISTORY: 1. Mental retardation. 2. History of diastolic heart failure. 3. GERD. 4. Hyperlipidemia. 5. Hypertension. 6. Iron deficiency anemia. 7. History of endocarditis recently. PAST SURGICAL HISTORY: None. FAMILY HISTORY: Noncontributory. SOCIAL HISTORY: Lives in care home. No alcohol, tobacco, or drugs. REVIEW OF SYSTEMS: Unobtainable as the patient was not giving me a good history. OUTPATIENT MEDICATIONS: 1. Senokot. 2. Robitussin p.r.n. 3. Tylenol regular strength. 4. Calcium carbonate. 5. Simethicone. 6. Potassium chloride 20 mEq b.i.d. 7. Remeron 30 mg at bedtime. 8. Carvedilol 3.125 b.i.d. 9. Calcium and vitamin D. 10. Atorvastatin 20 mg at bedtime. 11. Aspirin 325 a day. 12. Zantac. 13. Multivitamin daily. 14. Lisinopril 2.5 mg a day. 15. Ferrous gluconate. 16. Depakote. ALLERGIES: NO KNOWN DRUG ALLERGIES. REVIEW OF SYSTEMS: Unobtainable as the patient cannot communicate appropriately. PHYSICAL EXAMINATION: VITAL SIGNS: Temperature 97.6, pulse 92, respiratory rate 18, saturating 98% on room air, and blood pressure 117/57. GENERAL: Awake, alert. Cannot assess orientation as the patient is a difficult historian, in no distress. HEENT: Normocephalic and atraumatic. NECK: Supple. JVD up to about 11 cm of water. LUNGS: Mild crackles at bilateral bases. CARDIOVASCULAR: S1 and S2. There is a grade 2/6 systolic murmur at the right upper sternal border, second murmur at the apex, holosystolic. ABDOMEN: Soft. Positive bowel sounds. EXTREMITIES: 1+ edema. SKIN: Warm and dry. LABORATORY DATA: Laboratory work was reviewed. White count of 6, hemoglobin 11, hematocrit 37, platelet count of 290. Chemistry was unremarkable. Troponin is negative x2, completely undetectable. BNP was 526. TSH was normal. Urine culture, mixed skin ric was present. Echocardiogram showed reduced EF of 20% to 25% with mild MR. CT of the chest and abdomen and pelvis showed cardiomegaly with small to moderate-sized pericardial effusion. There is a large right and moderate size left pleural effusions and multiple pulmonary nodules, worse in the right middle lobe. No pulmonary embolus. Mediastinal lymph nodes are prominent. In the abdomen and pelvis, moderately large left renal cyst with subcentimeter hypodense lesions. Trace free fluid in the pelvis. Degenerative changes of the lower lumbar spine. ASSESSMENT: 1. Acute on chronic systolic heart failure. 2. History of what appeared to be mitral valve endocarditis recently. Mitral valve function appears to be normal on echo done yesterday. 3. Mental retardation. PLAN: 1. We will discuss with family how aggressive they want us to be with her care. She will need a LifeVest before discharge if she is mentally able to monitor this, however, I doubt this is the case. We will discuss with family if they would be interested in a heart catheterization or if they just want us to do medical therapy for this. At this time, Ms. Swift is unable to verbalize what she wants for me. 2. She is already on NESSA inhibitor and beta carla. Her blood pressure is borderline low. Would keep her on these two medications for now. Thank you for letting us to participate in the care of your patient. We will follow. Job ID: [id number]
[2019-04-03] MEDS: Atorvastatin Calcium 20 MG TAB PO SCH (22:13)
[2019-04-03] MEDS: Mirtazapine 30 MG TAB PO SCH (22:13)
[2019-04-04 04:47] LABS: Anion Gap 15 mmol/L (10-20); BUN (Urea Nitrogen) 28 mg/dL (9.8-20.1); Calc. Creatinine Clearance 90 mL/min (70-130); Calcium 9.1 mg/dL (7.8-10.44); Carbon Dioxide 30 mmol/L (22-29); Chloride 101 mmol/L (98-107); Estimated GFR-MDRD 70; Glucose 106 mg/dL (70-105); Potassium 3.7 mmol/L (3.5-5.1); Sodium 142 mmol/L (136-145)
--- NOTE | 2019-04-04 05:42 | PDOC.FM ---
- Subjective Subjective: Ms. Swift is doing well this morning, no complaints. Her shortness of breath has improved. - Objective MAR Reviewed: Yes Vital Signs & Weight: Vital Signs (12 hours) Temp Pulse Resp BP Pulse Ox 04/04/19 05:36 94 L 04/04/19 03:12 97.7 F 87 18 106/60 94 L 04/03/19 19:41 97.6 F 92 18 117/57 L 98 Weight Weight 91.308 kg I&O: 04/02/19 04/03/19 04/04/19 06:59 06:59 06:59 Intake Total 280 300 Output Total 1090 800 Balance -810 -500 Result Diagrams: 04/02/19 03:04 04/04/19 04:12 Phys Exam - Physical Examination Constitutional: NAD HEENT: PERRLA, moist MMs Neck: supple, full ROM Respiratory: no wheezing, no rales, no rhonchi, clear to auscultation bilateral Cardiovascular: RRR, no significant murmur, no rub Gastrointestinal: soft, non-tender, no distention Musculoskeletal: no edema, pulses present Neurological: non-focal, normal sensation Psychiatric: normal affect, A&O x 3 Skin: no rash, normal turgor Dx/Plan (1) Acute on chronic diastolic CHF (congestive heart failure) Code(s): I50.33 - ACUTE ON CHRONIC DIASTOLIC (CONGESTIVE) HEART FAILURE Status : Acute (2) GERD (gastroesophageal reflux disease) Code(s): K21.9 - GASTRO-ESOPHAGEAL REFLUX DISEASE WITHOUT ESOPHAGITIS Status: Chronic (3) HLD (hyperlipidemia) Code(s): E78.5 - HYPERLIPIDEMIA, UNSPECIFIED Status: Chronic (4) HTN (hypertension) Code(s): I10 - ESSENTIAL (PRIMARY) HYPERTENSION Status: Chronic (5) Intellectual disability Code(s): F79 - UNSPECIFIED INTELLECTUAL DISABILITIES Status: Chronic (6) GUCCI (acute kidney injury) Code(s): N17.9 - ACUTE KIDNEY FAILURE, UNSPECIFIED Status: Acute - Plan Plan: Patient is a 58F with PMHx of MR, CHF, GERD, HLD, HTN, iron deficiency anemia, and last hospitalization for endocarditis that is admitted for acute on chronic CHF exacerbation Acute on chronic CHF exacerbation, improving -CT shows pericardial effusion and bilateral pleural effusions -restarted po Lasix 80mg BID. (Patient was on this prior to endocarditis episode / treatment) -daily weights / strict I&Os HFrEF - EF 20-25% on ECHO. - Cardiology consulted. Appreciate recs. - Dr. Yepez's note from yesterday mentioned contacting family in regards to LHC vs LifeVest vs medical management, will await further recommendations. - Patient has diuresed well. Pulmonary nodules -Stable from prior exam. Pericardial effusion / bilateral pleural effusions -Increase in size of the pericardial effusion from prior study. -Cardiology consulted, appreciate recommendations. GERD -continue home meds HLD -continue home meds Iron deficiency anemia -continue home meds HTN -continue home meds DVT ppx: lovenox Dispo: Stable, inpatient. Code: TIFFR PCP: Maximilian Bernalum - Attending - Attending Attestation Date/Time: 04/04/192056 I personally evaluated the patient and discussed the management with Dr. Padilla. I agree with the History, Examination, Assessment and Plan documented above with any addition or exceptions noted below. Patient is doing well this morning. Will swap to susie olsen. Awaiting cardiology recs regarding plan of care.
[2019-04-04] MEDS: Divalproex Sodium 125 mg Sprinkle Capsule PO SCH ×3 (08:25→20:04)
[2019-04-04] MEDS: Enoxaparin Sodium 30 MG/0.3 ML SYRINGE SC SCH (08:25)
[2019-04-04] MEDS: Ferrous Gluconate 324 MG TAB PO SCH ×2 (08:25→20:03)
[2019-04-04] MEDS: Lisinopril 2.5 MG TAB PO SCH (08:25)
[2019-04-04] MEDS: Multivitamin W/ Minerals 1 TAB PO SCH (08:25)
[2019-04-04] MEDS: Carvedilol 3.125 MG TAB PO SCH ×2 (08:25→20:03)
[2019-04-04] MEDS: Aspirin 325 mg Enteric Coated Tablet PO SCH (08:25)
[2019-04-04] MEDS: Calcium Carbonate + Vit D 1 TAB PO SCH ×2 (08:25→20:03)
[2019-04-04] MEDS: Potassium Chloride 20 MEQ TAB PO SCH (08:25)
[2019-04-04] MEDS: Furosemide 80 MG TAB PO SCH ×2 (08:26→14:33)
[2019-04-04] MEDS: Simethicone Chewable 80 MG TAB PO SCH (08:26)
--- NOTE | 2019-04-04 19:53 | PDOC.CPN ---
- Subjective Date: 04/04/19 Time: 19:51 Interval history: No new issues. - Review of Systems ROS unobtainable: due to mental status - Objective Allergies/Adverse Reactions: Allergies Allergy/AdvReac Type Severity Reaction Status Date / Time No Known Allergies Allergy Verified 04/03/19 10:00 Visit Medications: Current Medications Acetaminophen (Tylenol) 650 mg PO Q4H PRN PRN Reason: Headache/Fever/Mild Pain (1-3) Aspirin (Ecotrin) 325 mg PO DAILY [facility] Last Admin: 04/04/19 08:25 Dose: 325 mg Atorvastatin Calcium (Lipitor) 20 mg PO HS [facility] Last Admin: 04/03/19 22:13 Dose: 20 mg Calcium Carbonate (Tums) 1,000 mg PO Q4H PRN PRN Reason: Heartburn or Indigestion Last Admin: 04/02/19 22:02 Dose: 1,000 mg Calcium/Vitamin D (Caltrate 600 + Vit D) 1 tab PO BID [facility] Last Admin: 04/04/19 08:25 Dose: 1 tab Carvedilol (Coreg) 3.125 mg PO BID [facility] Last Admin: 04/04/19 08:25 Dose: 3.125 mg Divalproex Sodium (Depakote Sprinkle) 125 mg PO TID [facility] Last Admin: 04/04/19 14:33 Dose: 125 mg Enoxaparin Sodium (Lovenox) 30 mg SC 0900 [facility] Last Admin: 04/04/19 08:25 Dose: 30 mg Ferrous Gluconate (Fergon) 324 mg PO BID [facility] Last Admin: 04/04/19 08:25 Dose: 324 mg Furosemide (Lasix) 80 mg PO 0900,1400 [facility] Last Admin: 04/04/19 14:33 Dose: 80 mg Iron/Minerals/Multivitamins (Theragran M) 1 tab PO DAILY [facility] Last Admin: 04/04/19 08:25 Dose: 1 tab Lisinopril (Zestril) 2.5 mg PO DAILY [facility] Last Admin: 04/04/19 08:25 Dose: 2.5 mg Mirtazapine (Remeron) 30 mg PO HS [facility] Last Admin: 04/03/19 22:13 Dose: 30 mg Potassium Chloride (K-Dur) 20 meq PO QAM-WM [facility] Last Admin: 04/04/19 08:25 Dose: 20 meq Simethicone (Mylicon Chewable) 80 mg PO QAM [facility] Last Admin: 04/04/19 08:26 Dose: 80 mg Sodium Chloride (Flush - Normal Saline) 10 ml IVF Q12HR [facility] Last Admin: 04/04/19 08:26 Dose: 10 ml Sodium Chloride (Flush - Normal Saline) 10 ml IVF PRN PRN PRN Reason: Saline Flush Vital Signs & Weight: Vital Signs Temp Pulse Pulse Pulse Resp BP BP 04/04/19 17:10 04/04/19 16:21 98.1 F 68 12 04/04/19 14:35 04/04/19 11:37 98.3 F 95 18 04/04/19 10:31 90 93 129/75 124/77 04/04/19 08:25 87 04/04/19 08:23 98.1 F 87 16 04/04/19 08:00 BP Pulse Ox 04/04/19 17:10 105/67 04/04/19 16:21 113/57 L 98 04/04/19 14:35 117/70 04/04/19 11:37 117/75 96 04/04/19 10:31 04/04/19 08:25 04/04/19 08:23 124/67 99 04/04/19 08:00 99 Weight 201 lb 4.8 oz - Physical Exam General: appears well HEENT: mucus membranes moist Neck: supple neck Cardiac: regular rate and rhythm Lungs: decreased breath sounds Neuro: no lateralizing findings Abdomen: active bowel sounds Extremities: 1+ LE edema Skin: clear Musculoskeletal: no pain - Labs Result Diagrams: 04/02/19 03:04 04/04/19 04:12 Troponin/CKMB Troponin I Less than 0.010 ng/mL (< 0.028) 04/01/19 20:50 - Telemetry Sinus rhythms and dysrhythmias: sinus rhythm - Assessment/Plan Assessment/Plan: 1. Acute systolic heart failure. 2. Hx of mitral valve endocarditis, mild MR now. 3. Mental retardation PLAN: - Continue diuresis. - Will plan on conservative therapy for now. - Switch Lasix to 40 mg PO BID - Continue low dose BB and ACEI. - Will do stress test tomorrow for risk stratification.
[2019-04-04] MEDS: Mirtazapine 30 MG TAB PO SCH (20:03)
[2019-04-04] MEDS: Atorvastatin Calcium 20 MG TAB PO SCH (20:04)
[2019-04-05 04:53] LABS: Anion Gap 14 mmol/L (10-20); BUN (Urea Nitrogen) 25 mg/dL (9.8-20.1); Calc. Creatinine Clearance 96 mL/min (70-130); Calcium 9.5 mg/dL (7.8-10.44); Carbon Dioxide 29 mmol/L (22-29); Chloride 97 mmol/L (98-107); Estimated GFR-MDRD 75; Glucose 99 mg/dL (70-105); Potassium 3.7 mmol/L (3.5-5.1); Sodium 136 mmol/L (136-145)
--- NOTE | 2019-04-05 05:36 | PDOC.FM ---
- Subjective Subjective: Ms. Swift is doing well this morning. She has no complaints, she is resting comfortably. - Objective MAR Reviewed: Yes Vital Signs & Weight: Vital Signs (12 hours) Temp Pulse Resp BP Pulse Ox 04/05/19 03:45 98 F 85 18 127/59 L 100 04/05/19 00:03 84 123/67 04/04/19 19:59 98.1 F 89 18 125/66 97 Weight Weight 90.945 kg I&O: 04/03/19 04/04/19 04/05/19 06:59 06:59 06:59 Intake Total 280 300 960 Output Total 0868 295 6084 Balance -810 -500 -40 Result Diagrams: 04/02/19 03:04 04/05/19 04:10 Phys Exam - Physical Examination Constitutional: NAD HEENT: PERRLA, moist MMs Neck: supple, full ROM Respiratory: no wheezing, no rales, no rhonchi, clear to auscultation bilateral Cardiovascular: RRR, no significant murmur, no rub Gastrointestinal: soft, non-tender Musculoskeletal: no edema, pulses present Neurological: non-focal Deviation from normal: Unable to assess Skin: no rash, normal turgor Dx/Plan (1) Acute on chronic diastolic CHF (congestive heart failure) Code(s): I50.33 - ACUTE ON CHRONIC DIASTOLIC (CONGESTIVE) HEART FAILURE Status : Acute (2) GERD (gastroesophageal reflux disease) Code(s): K21.9 - GASTRO-ESOPHAGEAL REFLUX DISEASE WITHOUT ESOPHAGITIS Status: Chronic (3) HLD (hyperlipidemia) Code(s): E78.5 - HYPERLIPIDEMIA, UNSPECIFIED Status: Chronic (4) HTN (hypertension) Code(s): I10 - ESSENTIAL (PRIMARY) HYPERTENSION Status: Chronic (5) Intellectual disability Code(s): F79 - UNSPECIFIED INTELLECTUAL DISABILITIES Status: Chronic (6) GUCCI (acute kidney injury) Code(s): N17.9 - ACUTE KIDNEY FAILURE, UNSPECIFIED Status: Acute - Plan Plan: Acute on chronic CHF exacerbation, resolved HFrEF - EF 20-25% on ECHO. - Cardiology consulted - they plan for stress test today and conservative management going forward. - Reduced PO lasix to 40mg BID per cardiology. - Will continue BB and NESSA-I Pulmonary nodules -Stable from prior exam. Pericardial effusion / bilateral pleural effusions -Increase in size of the pericardial effusion from prior study. -Cardiology consulted, appreciate recommendations. GERD -continue home meds HLD -continue home meds Iron deficiency anemia -continue home meds HTN -continue home meds DVT ppx: lovenox Dispo: Stable, inpatient. Code: DNAR PCP: Maximilian Addendum - Attending - Attending Attestation Date/Time: 04/05/19 4145 I personally evaluated the patient and discussed the management with Dr. Padilla. I agree with the History, Examination, Assessment and Plan documented above with any addition or exceptions noted below. Patient will have stress test today. She is feeling well. f/u with results and cardiology recs.
[2019-04-05] MEDS: Divalproex Sodium 125 mg Sprinkle Capsule PO SCH ×3 (08:25→20:47)
[2019-04-05] MEDS: Calcium Carbonate + Vit D 1 TAB PO SCH ×2 (08:25→20:48)
[2019-04-05] MEDS: Ferrous Gluconate 324 MG TAB PO SCH ×2 (08:25→20:48)
[2019-04-05] MEDS: Aspirin 325 mg Enteric Coated Tablet PO SCH (08:25)
[2019-04-05] MEDS: Multivitamin W/ Minerals 1 TAB PO SCH (08:25)
[2019-04-05] MEDS: Enoxaparin Sodium 30 MG/0.3 ML SYRINGE SC SCH (08:26)
[2019-04-05] MEDS: Potassium Chloride 20 MEQ TAB PO SCH (08:26)
[2019-04-05] MEDS: Furosemide 40 MG TAB PO SCH ×2 (10:06→14:37)
[2019-04-05] MEDS: Simethicone Chewable 80 MG TAB PO SCH (10:50)
[2019-04-05] MEDS ORDERED: Regadenoson 0.4 MG/5 ML SYRINGE ONE (14:02)
[2019-04-05] MEDS: Lisinopril 2.5 MG TAB PO SCH (14:36)
[2019-04-05] MEDS: Carvedilol 3.125 MG TAB PO SCH ×2 (14:37→20:48)
--- NOTE | 2019-04-05 18:25 | PDOC.CPN ---
- Subjective Date: 04/05/19 Time: 18:24 Interval history: No new issues. No chest pain. - Review of Systems ROS unobtainable: due to mental status - Objective Allergies/Adverse Reactions: Allergies Allergy/AdvReac Type Severity Reaction Status Date / Time No Known Allergies Allergy Verified 04/03/19 10:00 Visit Medications: Current Medications Acetaminophen (Tylenol) 650 mg PO Q4H PRN PRN Reason: Headache/Fever/Mild Pain (1-3) Aspirin (Ecotrin) 325 mg PO DAILY [facility] Last Admin: 04/05/19 08:25 Dose: 325 mg Atorvastatin Calcium (Lipitor) 20 mg PO HS [facility] Last Admin: 04/04/19 20:04 Dose: 20 mg Calcium Carbonate (Tums) 1,000 mg PO Q4H PRN PRN Reason: Heartburn or Indigestion Last Admin: 04/02/19 22:02 Dose: 1,000 mg Calcium/Vitamin D (Caltrate 600 + Vit D) 1 tab PO BID [facility] Last Admin: 04/05/19 08:25 Dose: 1 tab Carvedilol (Coreg) 3.125 mg PO BID [facility] Last Admin: 04/05/19 14:37 Dose: 3.125 mg Divalproex Sodium (Depakote Sprinkle) 125 mg PO TID [facility] Last Admin: 04/05/19 14:36 Dose: 125 mg Enoxaparin Sodium (Lovenox) 30 mg SC 0900 [facility] Last Admin: 04/05/19 08:26 Dose: 30 mg Ferrous Gluconate (Fergon) 324 mg PO BID [facility] Last Admin: 04/05/19 08:25 Dose: 324 mg Furosemide (Lasix) 40 mg PO 0900,1400 [facility] Last Admin: 04/05/19 14:37 Dose: 40 mg Iron/Minerals/Multivitamins (Theragran M) 1 tab PO DAILY [facility] Last Admin: 04/05/19 08:25 Dose: 1 tab Lisinopril (Zestril) 2.5 mg PO DAILY [facility] Last Admin: 04/05/19 14:36 Dose: 2.5 mg Mirtazapine (Remeron) 30 mg PO HS [facility] Last Admin: 04/04/19 20:03 Dose: 30 mg Potassium Chloride (K-Dur) 20 meq PO QAM-WM [facility] Last Admin: 04/05/19 08:26 Dose: 20 meq Simethicone (Mylicon Chewable) 80 mg PO QAM [facility] Last Admin: 04/05/19 10:50 Dose: 80 mg Sodium Chloride (Flush - Normal Saline) 10 ml IVF Q12HR [facility] Last Admin: 04/05/19 10:50 Dose: 10 ml Sodium Chloride (Flush - Normal Saline) 10 ml IVF PRN PRN PRN Reason: Saline Flush Vital Signs & Weight: Vital Signs Temp Pulse Resp BP Pulse Ox 04/05/19 16:00 98.1 F 91 16 110/56 L 96 04/05/19 14:36 94 04/05/19 14:32 97.4 F L 94 18 130/72 98 04/05/19 11:35 97.3 F L 87 16 122/72 96 04/05/19 08:00 97.6 F 89 18 121/67 98 04/05/19 07:25 100 Weight 200 lb 8 oz - Physical Exam General: appears well HEENT: mucus membranes moist Neck: supple neck Cardiac: regular rate and rhythm, no murmur Lungs: normal breath sounds Neuro: no lateralizing findings Abdomen: active bowel sounds Extremities: no edema Skin: clear Musculoskeletal: no pain - Labs Result Diagrams: 04/02/19 03:04 04/05/19 04:10 Troponin/CKMB Troponin I Less than 0.010 ng/mL (< 0.028) 04/01/19 20:50 - Telemetry Sinus rhythms and dysrhythmias: sinus rhythm - Assessment/Plan Assessment/Plan: 1. Acute systolic heart failure. 2. Hx of mitral valve endocarditis, mild MR now. 3. Mental retardation PLAN: - PO lasix - Spoke with family and they wish conservative therapy. -Continue low dose BB and ACEI. - Stress test results pending, 2 day study.
[2019-04-05] MEDS: Atorvastatin Calcium 20 MG TAB PO SCH (20:48)
[2019-04-05] MEDS: Mirtazapine 30 MG TAB PO SCH (20:48)
--- NOTE | 2019-04-06 05:33 | PDOC.FM ---
- Subjective Subjective: Resting comfortably this morning, no complaints. Plans to complete day 2 of stress test. - Objective MAR Reviewed: Yes Vital Signs & Weight: Vital Signs (12 hours) Temp Pulse Resp BP Pulse Ox 04/06/19 04:00 97.6 F 81 20 124/65 98 04/06/19 00:00 93 20 04/05/19 20:00 97.6 F 89 20 111/55 L 96 Weight Weight 88.042 kg I&O: 04/04/19 04/05/19 04/06/19 06:59 06:59 06:59 Intake Total 300 1410 450 Output Total 800 1450 240 Balance -500 -40 210 Result Diagrams: 04/02/19 03:04 04/05/19 04:10 Phys Exam - Physical Examination Constitutional: NAD HEENT: moist MMs Neck: no JVD, supple Respiratory: no wheezing, no rales, no rhonchi, clear to auscultation bilateral Cardiovascular: RRR, no significant murmur, no rub Gastrointestinal: soft, non-tender, no distention Musculoskeletal: no edema, pulses present Neurological: non-focal, moves all 4 limbs Psychiatric: normal affect Skin: no rash, normal turgor Dx/Plan (1) Acute on chronic diastolic CHF (congestive heart failure) Code(s): I50.33 - ACUTE ON CHRONIC DIASTOLIC (CONGESTIVE) HEART FAILURE Status : Acute (2) GERD (gastroesophageal reflux disease) Code(s): K21.9 - GASTRO-ESOPHAGEAL REFLUX DISEASE WITHOUT ESOPHAGITIS Status: Chronic (3) HLD (hyperlipidemia) Code(s): E78.5 - HYPERLIPIDEMIA, UNSPECIFIED Status: Chronic (4) HTN (hypertension) Code(s): I10 - ESSENTIAL (PRIMARY) HYPERTENSION Status: Chronic (5) Intellectual disability Code(s): F79 - UNSPECIFIED INTELLECTUAL DISABILITIES Status: Chronic (6) GUCCI (acute kidney injury) Code(s): N17.9 - ACUTE KIDNEY FAILURE, UNSPECIFIED Status: Acute - Plan Plan: Acute on chronic CHF exacerbation, resolved HFrEF - EF 20-25% on ECHO. - Cardiology consulted - they plan for 2nd part of 2-day stress test today. Will await recommendations. - Will continue BB and NESSA-I and lasix. Pulmonary nodules -Stable from prior exam. Pericardial effusion / bilateral pleural effusions -Increase in size of the pericardial effusion from prior study. -Cardiology consulted, appreciate recommendations. GERD -continue home meds HLD -continue home meds Iron deficiency anemia -continue home meds HTN -continue home meds DVT ppx: lovenox Dispo: Stable, inpatient. Code: VISHNU PCP: Maximilian Bernalum - Attending - Attending Attestation Date/Time: 04/06/19 0193 I personally evaluated the patient and discussed the management with Dr. Padilla. I agree with the History, Examination, Assessment and Plan documented above with any addition or exceptions noted below. Patient is completing the 2nd half of the stress test today. If normal, can likely d/c back to longterm. Will follow cards recs.
[2019-04-06] MEDS: Lisinopril 2.5 MG TAB PO SCH (08:00)
[2019-04-06] MEDS: Divalproex Sodium 125 mg Sprinkle Capsule PO SCH ×3 (08:00→20:03)
[2019-04-06] MEDS: Aspirin 325 mg Enteric Coated Tablet PO SCH (08:01)
[2019-04-06] MEDS: Simethicone Chewable 80 MG TAB PO SCH (08:01)
[2019-04-06] MEDS: Multivitamin W/ Minerals 1 TAB PO SCH (08:01)
[2019-04-06] MEDS: Enoxaparin Sodium 30 MG/0.3 ML SYRINGE SC SCH (08:01)
[2019-04-06] MEDS: Ferrous Gluconate 324 MG TAB PO SCH ×2 (08:01→20:03)
[2019-04-06] MEDS: Carvedilol 3.125 MG TAB PO SCH ×2 (08:01→20:03)
[2019-04-06] MEDS: Potassium Chloride 20 MEQ TAB PO SCH (08:01)
[2019-04-06] MEDS: Furosemide 40 MG TAB PO SCH ×2 (08:01→14:19)
[2019-04-06] MEDS: Calcium Carbonate + Vit D 1 TAB PO SCH ×2 (08:01→20:03)
--- NOTE | 2019-04-06 10:44 | NM ---
EXAM: Nuclear Medicine Cardiac SPECT with EF and wall motion: HISTORY: CMP, congestive heart failure, hypertension, dyslipidemia Protocol: Exam was performed using [employer] protocol. The patient is injected with30.0 millicuries of technetium 99m sestamibi intravenously for stress eleanor ges. The patient is injected with30.7 millicuries of technetium 99 sestamibi intravenously for resting eleanor ges. Multiple SPECT images are performed in the short axis, vertical long axis, and horizontal long axis. FINDINGS: No scan evidence for infarct or ischemia. TID:1.06 LHR:0.27 EDV:Markedly elevated 148 mL EF:22% Wall motion:Severe diffuse hypokinesis. IMPRESSION: No overt focal infarct or ischemia. Markedly elevated EDV. Markedly abnormally low EF at 22% with severe diffuse hypokinesis.
--- NOTE | 2019-04-06 18:51 | PDOC.CPN ---
- Subjective Date: 04/06/19 Time: 18:49 - Review of Systems ROS unobtainable: due to mental status - Objective Allergies/Adverse Reactions: Allergies Allergy/AdvReac Type Severity Reaction Status Date / Time No Known Allergies Allergy Verified 04/03/19 10:00 Visit Medications: Current Medications Acetaminophen (Tylenol) 650 mg PO Q4H PRN PRN Reason: Headache/Fever/Mild Pain (1-3) Aspirin (Ecotrin) 325 mg PO DAILY [facility] Last Admin: 04/06/19 08:01 Dose: 325 mg Atorvastatin Calcium (Lipitor) 20 mg PO HS [facility] Last Admin: 04/05/19 20:48 Dose: 20 mg Calcium Carbonate (Tums) 1,000 mg PO Q4H PRN PRN Reason: Heartburn or Indigestion Last Admin: 04/02/19 22:02 Dose: 1,000 mg Calcium/Vitamin D (Caltrate 600 + Vit D) 1 tab PO BID [facility] Last Admin: 04/06/19 08:01 Dose: 1 tab Carvedilol (Coreg) 3.125 mg PO BID [facility] Last Admin: 04/06/19 08:01 Dose: 3.125 mg Divalproex Sodium (Depakote Sprinkle) 125 mg PO TID [facility] Last Admin: 04/06/19 14:19 Dose: 125 mg Enoxaparin Sodium (Lovenox) 30 mg SC 0900 [facility] Last Admin: 04/06/19 08:01 Dose: 30 mg Ferrous Gluconate (Fergon) 324 mg PO BID [facility] Last Admin: 04/06/19 08:01 Dose: 324 mg Furosemide (Lasix) 40 mg PO 0900,1400 [facility] Last Admin: 04/06/19 14:19 Dose: 40 mg Iron/Minerals/Multivitamins (Theragran M) 1 tab PO DAILY [facility] Last Admin: 04/06/19 08:01 Dose: 1 tab Lisinopril (Zestril) 2.5 mg PO DAILY [facility] Last Admin: 04/06/19 08:00 Dose: 2.5 mg Mirtazapine (Remeron) 30 mg PO HS [facility] Last Admin: 04/05/19 20:48 Dose: 30 mg Potassium Chloride (K-Dur) 20 meq PO QAM-WM [facility] Last Admin: 04/06/19 08:01 Dose: 20 meq Simethicone (Mylicon Chewable) 80 mg PO QAM [facility] Last Admin: 04/06/19 08:01 Dose: 80 mg Sodium Chloride (Flush - Normal Saline) 10 ml IVF Q12HR [facility] Last Admin: 04/06/19 08:08 Dose: 10 ml Sodium Chloride (Flush - Normal Saline) 10 ml IVF PRN PRN PRN Reason: Saline Flush Vital Signs & Weight: Vital Signs Temp Pulse Pulse Pulse Resp BP BP 04/06/19 15:52 98.3 F 83 12 04/06/19 11:45 97.4 F L 89 16 04/06/19 10:51 88 86 111/68 135/68 04/06/19 07:50 97.4 F L 85 18 BP Pulse Ox 04/06/19 15:52 109/59 L 97 04/06/19 11:45 118/68 97 04/06/19 10:51 04/06/19 07:50 135/68 98 Weight 194 lb 1.6 oz - Physical Exam General: appears well HEENT: mucus membranes moist Neck: supple neck Cardiac: regular rate and rhythm Lungs: normal breath sounds Neuro: grossly intact Abdomen: active bowel sounds Extremities: no edema Skin: clear Musculoskeletal: no pain - Labs Result Diagrams: 04/02/19 03:04 04/05/19 04:10 Troponin/CKMB Troponin I Less than 0.010 ng/mL (< 0.028) 04/01/19 20:50 - Telemetry Sinus rhythms and dysrhythmias: sinus rhythm - Assessment/Plan Assessment/Plan: 1. Acute systolic heart failure. 2. Hx of mitral valve endocarditis, mild MR now. 3. Mental retardation PLAN: - PO lasix - Continue conservative therapy. -Continue low dose BB and ACEI. - No ischemia on MPI. - EF still reduced. She is not a candidate for a lifevest. - May discharge home at any time from cardiac perspective on current regimen. - Follow up in the office in 4 weeks.l
[2019-04-06] MEDS: Mirtazapine 30 MG TAB PO SCH (20:03)
[2019-04-06] MEDS: Atorvastatin Calcium 20 MG TAB PO SCH (20:03)
--- NOTE | 2019-04-07 05:58 | PDOC.FM ---
- Subjective Subjective: She says she is sleeping well, eating well, and is in no pain. She is ready to go back home. - Objective MAR Reviewed: Yes Vital Signs & Weight: Vital Signs (12 hours) Temp Pulse Resp BP Pulse Ox 04/07/19 03:36 97.9 F 84 23 H 123/74 96 04/07/19 00:00 20 04/06/19 20:00 97.5 F L 88 20 115/55 L 96 Weight Weight 88.042 kg I&O: 04/05/19 04/06/19 04/07/19 06:59 06:59 06:59 Intake Total 9956 718 2948 Output Total 1450 640 600 Balance -40 -70 420 Result Diagrams: 04/02/19 03:04 04/05/19 04:10 Phys Exam - Physical Examination Constitutional: NAD HEENT: moist MMs, oral pharynx no lesions Neck: supple, full ROM Respiratory: clear to auscultation bilateral Cardiovascular: RRR, no significant murmur Gastrointestinal: soft, non-tender, positive bowel sounds Musculoskeletal: no edema, pulses present Neurological: moves all 4 limbs Lymphatic: no nodes Psychiatric: normal affect Skin: no rash Dx/Plan (1) Acute on chronic diastolic CHF (congestive heart failure) Code(s): I50.33 - ACUTE ON CHRONIC DIASTOLIC (CONGESTIVE) HEART FAILURE Status : Acute (2) GERD (gastroesophageal reflux disease) Code(s): K21.9 - GASTRO-ESOPHAGEAL REFLUX DISEASE WITHOUT ESOPHAGITIS Status: Chronic (3) HLD (hyperlipidemia) Code(s): E78.5 - HYPERLIPIDEMIA, UNSPECIFIED Status: Chronic (4) HTN (hypertension) Code(s): I10 - ESSENTIAL (PRIMARY) HYPERTENSION Status: Chronic (5) Intellectual disability Code(s): F79 - UNSPECIFIED INTELLECTUAL DISABILITIES Status: Chronic - Plan Plan: Acute on chronic CHF exacerbation, resolved HFrEF - EF 20-25% on ECHO. - Cardiology consulted - stress was negative without infarct or ischemia - Will continue BB and NESSA-I and lasix. - Not a candidate for lifevest - F/u with Dr. Yepez in 4 wks outpt. Pulmonary nodules -Stable from prior exam. Pericardial effusion / bilateral pleural effusions -Increase in size of the pericardial effusion from prior study. -Cardiology consulted, appreciate recommendations. GERD -continue home meds HLD -continue home meds Iron deficiency anemia -continue home meds HTN -continue home meds DVT ppx: lovenox Dispo: Stable, inpatient. Code: DNAR PCP: Maximilian Dispo: Today Addendum - Attending - Attending Attestation Date/Time: 04/07/19 [id number] I personally evaluated the patient and discussed the management with Dr. Arevalo. I agree with the History, Examination, Assessment and Plan documented above with any addition or exceptions noted below. Patient has been cleared by cardiology. Will d/c back to the half-way.
[2019-04-07] MEDS: Lisinopril 2.5 MG TAB PO SCH (09:14)
[2019-04-07] MEDS: Furosemide 40 MG TAB PO SCH ×2 (09:14→13:41)
[2019-04-07] MEDS: Ferrous Gluconate 324 MG TAB PO SCH (09:15)
[2019-04-07] MEDS: Potassium Chloride 20 MEQ TAB PO SCH (09:15)
[2019-04-07] MEDS: Simethicone Chewable 80 MG TAB PO SCH (09:15)
[2019-04-07] MEDS: Calcium Carbonate + Vit D 1 TAB PO SCH (09:15)
[2019-04-07] MEDS: Carvedilol 3.125 MG TAB PO SCH (09:15)
[2019-04-07] MEDS: Multivitamin W/ Minerals 1 TAB PO SCH (09:15)
[2019-04-07] MEDS: Enoxaparin Sodium 30 MG/0.3 ML SYRINGE SC SCH (09:15)
[2019-04-07] MEDS: Aspirin 325 mg Enteric Coated Tablet PO SCH (09:15)
[2019-04-07] MEDS: Divalproex Sodium 125 mg Sprinkle Capsule PO SCH (09:15)
[2019-04-07 13:32] VITALS: BP 120/65; TEMP 96.9
== END 2019-04-07 14:13 | DRG 292 ==
LOC: ERS 19:37 → OBSVTOIN 23:03 → ERHOLD 23:03 → 2NO 04-02 15:31
PROVIDERS: ADMIT Emergency Medicine; ATTEND Emergency Medicine
DX: I11.0 Hypertensive heart disease with heart failure (principal); I31.3 Pericardial effusion (noninflammatory); N17.9 Acute kidney failure, unspecified; Z66 Do not resuscitate; I50.33 Acute on chronic diastolic (congestive) heart failure; K21.9 Gastro-esophageal reflux disease without esophagitis; E78.5 Hyperlipidemia, unspecified; D50.9 Iron deficiency anemia, unspecified; F79 Unspecified intellectual disabilities; R91.1 Solitary pulmonary nodule; Z79.82 Long term (current) use of aspirin; Z79.899 Other long term (current) drug therapy; Z86.718 Personal history of other venous thrombosis and embolism
CPT/HCPCS: 36415; 78452; 80048; 83880; 84443; 85025; 87086; 93017; 93306; 93798; 96365; 96375; A9500; J0696; J1650; J1940; J2785